=== PATIENT | female | born 1935 | race Caucasian/White ===

== ENCOUNTER → 2020-03-30 11:31 | Outpatient (CLI) | payer MEDICARE, SELFPAY ==
--- NOTE | 2020-03-30 11:43 | XR_ITS ---
PROCEDURE: XR THORACIC SPINE 3V CLINICAL INDICATION: pain COMPARISON: No exams were available for comparison FINDINGS: No fracture or dislocation. No lytic or blastic change. There is normal mineralization. There is mild multilevel thoracic spondylosis with slight decrease in the disc space and minimal endplate osteophytes. Other findings:Incidental note is made of mild cardiomegaly without failure with increased density over left heart border suggesting consolidation along with a nodular opacity in the left midlung laterally at 12 mm. Surgical clips are present in the right axilla. IMPRESSION: Mild degenerative changes, no acute finding. Possible left lower lobe pneumonia. 12 mm nodule in the left midlung for which CT may provide further evaluation Dictated by: Gregory Gongora MD 03/30/2020 13:08 Gregory Gongora MD in [place] 03/30/2020 13:08
--- NOTE | 2020-03-30 11:43 | XR_ITS ---
PROCEDURE: XR LUMBAR SPINE 2-3V CLINICAL INDICATION: lbp, rightward radicular pain COMPARISON: DX XR THORACIC SPINE 3V from 03/30/2020 FINDINGS: There is normal alignment. There is minimal lumbar curvature convex right. Degenerative disc disease is present from L1-S1 with 7 mm anterolisthesis of L5 on S1. Endplate compression changes are present involving the L3 vertebral body. There is ill definition along the anterior aspect of the L3 vertebral body. There is diffuse vascular calcification. There is 4 mm retrolisthesis of L3 on L4. IMPRESSION: 1. Degenerative changes. 2. Endplate compression changes of L3 age indeterminate. There is ill definition along the anterior aspect of the body of L3. Consider MRI or CT for more thorough evaluation Dictated by: Gregory Gongora MD 03/30/2020 13:12 Gregory Gongora MD in [place] 03/30/2020 13:12
== END ==
PROVIDERS: PCP Family Medicine; Visit Provider Family Medicine
DX: G89.29 Other chronic pain (principal); M54.6 Pain in thoracic spine; M54.5 Low back pain
CPT/HCPCS: 72072; 72100

== ENCOUNTER → 2021-01-05 14:54 | Outpatient (CLI) | payer MEDICARE, SELFPAY ==
--- NOTE | 2021-01-05 14:54 | MR_ITS ---
PROCEDURE: MR LUMBAR SPINE WO CON CLINICAL INDICATION: back pain Lbp [id number]. No recent injury. Prior x-ray 03/30/20. COMPARISON: DX XR LUMBAR SPINE 2-3V from 03/30/2020 TECHNIQUE: Standard multiplanar multiecho sequences are performed without contrast. 3-D MIP and myelographic images are also rendered and reviewed FINDINGS: There is normal alignment. The spinal cord ends at the L1-L2 level. T11-T12: Degenerative disc disease. T12-L1: Unremarkable. L1-L2: Unremarkable. L2-L3: Minimal bulging disc. Chronic wedge compression changes involves the L3 vertebral body. There is loss of height centrally of approximately 60 percent with a vertical area of discontinuity of the L3 vertebral body centrally. This does not extend to the right or left but is confined to the central aspect of the vertebral body. There is mild bulging of the anterior aspect of L3 body anteriorly by approximately 3 mm and minimal retrolisthesis of the posterior aspect of the L3 vertebral body also by 3 mm. There is mild facet hypertrophic change with mild bilateral lateral recess and foraminal narrowing. L3-L4: Mild retrolisthesis of L3 by 3 mm with bulging disc along with facet and ligamentum hypertrophic change resulting in the moderate bilateral lateral recess narrowing which abuts both L4 nerve roots.. There is also moderate bilateral foraminal narrowing with borderline central canal stenosis. L4-5: Mild concentric bulging disc. There is severe facet and ligamentum hypertrophy resulting in canal stenosis of 8 mm with moderate to severe bilateral lateral recess narrowing which abuts both L5 nerve roots. There is moderate right and moderate to severe left foraminal narrowing.. L5-S1: 4 mm anterolisthesis of L5 with bulging disc slightly eccentric to the right along with moderate to severe facet and ligamentum hypertrophic change. There is moderate to severe right-sided lateral recess narrowing and bilateral foraminal narrowing. The right lateral recess narrowing abuts the right S1 nerve root. There are numerous bilateral renal cysts the largest involving the left kidney measuring nearly 8 cm. There is a small Tarlov cyst at the S3 level. IMPRESSION: 1. L2-L3: Minimal bulging disc. Chronic wedge compression changes involves the L3 vertebral body. There is loss of height centrally of approximately 60 percent with a vertical area of discontinuity of the L3 vertebral body centrally. This does not extend to the right or left but is confined to the central aspect of the vertebral body. There is mild bulging of the anterior aspect of L3 body anteriorly by approximately 3 mm and minimal retrolisthesis of the posterior aspect of the L3 vertebral body also by 3 mm. There is mild facet hypertrophic change with mild bilateral lateral recess and foraminal narrowing. 2. L3-L4: Mild retrolisthesis of L3 by 3 mm with bulging disc along with facet and ligamentum hypertrophic change resulting in the moderate bilateral lateral recess narrowing which abuts both L4 nerve roots.. There is also moderate bilateral foraminal narrowing with borderline central canal stenosis. 3. L4-5: Mild concentric bulging disc. There is severe facet and ligamentum hypertrophy resulting in canal stenosis of 8 mm with moderate to severe bilateral lateral recess narrowing which abuts both L5 nerve roots. There is moderate right and moderate to severe left foraminal narrowing.. 4. L5-S1: 4 mm anterolisthesis of L5 with bulging disc slightly eccentric to the right along with moderate to severe facet and ligamentum hypertrophic change. There is moderate to severe right-sided lateral recess narrowing and bilateral foraminal narrowing. The right lateral recess narrowing abuts the right S1 nerve root.
== END ==
PROVIDERS: PCP Family Medicine; Visit Provider Family Medicine
DX: M54.5 Low back pain (principal)
CPT/HCPCS: 72148; 76376

== ENCOUNTER → 2021-01-21 08:18 | Outpatient (CLI) | payer MEDICARE, SELFPAY ==
--- NOTE | 2021-01-21 08:19 | US_ITS ---
PROCEDURE: US ABD. AORTA SCREENING CLINICAL INDICATION: screening COMPARISON: No exams were available for comparison FINDINGS: There are some diffuse calcified plaque in the abdominal aorta. No evidence of abdominal aortic aneurysm. Maximal aortic dimensions are 1.7 centimeters proximal, 1.7 centimeters mid, and 1.6 centimeters distal. At the aortic bifurcation proximal common iliac arteries appear normal. IMPRESSION: No evidence of abdominal aortic aneurysm. Dictated by: Sudhakar Francis MD 01/21/2021 09:39 Sudhakar Francis MD in [place] 01/21/2021 09:39
== END ==
PROVIDERS: PCP Family Medicine; Visit Provider Family Medicine
DX: Z13.6 Encounter for screening for cardiovascular disorders (principal)
CPT/HCPCS: 76705

== ENCOUNTER → 2021-02-01 10:22 | Outpatient (POV) | payer MEDICARE, SELFPAY ==
[2021-02-01 11:12] VITALS: BP 144/72; PULSE 69; RESP 18; O2SAT 94; BMI 24.9
--- NOTE | 2021-02-01 12:10 | HMH.PMCON ---
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 The patient is not on any antirelation therapy. She will continue with home stretching. We will see her back in the clinic after her injection for reevaluation of symptoms. She has had these injections in the past and gets significant relief. She will also continue with anti-inflammatories [id number]. Risks and benefits of the procedure have been explained to the patient. Patient would like to proceed with the procedure. Possible side effects of corticosteroids have been discussed with the patient. Patient has been instructed to contact the clinic with any concerns before the next appointment. Dr. Hallman has reviewed this note and agrees with this plan of care. This note was dictated using voice recognition software and make contain errors or omissions. HPI - Data of Consult Patient: new to practice Consult date: 02/01/21 Requesting Physician: Leola Moon APRN Primary Care Provider: Alli Negrete MD - Consult Narrative Reason for consult: Low back pain, buttock pain History of present illness: Ms. Sidhu is a 85 year old female who presents today for consultation for chronic low back pain. The patient was referred to us by Dr. Negrete. Patient says she has had ongoing low back pain for many years. She has undergone injective therapy in the past in [facility] with Dr. Barker. Patient says she gets between 80 to 90% relief with lumbar epidural steroid injections for years after the injections. Patient says that her pain is in the low back bilaterally radiating into her bilateral buttock. She denies any radicular pain into her lower extremities, however. She denies any paresthesia or saddle anesthesia. She denies any changes in bowel or bladder habit. She does say her pain is worse when she is standing and walking and does improve somewhat with sitting. She has tried anti-inflammatories periodically with little relief. She does not take the medications consistently. She has tried physical therapy for greater than 6 weeks in the past. She also continues with a limited home stretching program. CC: Leola Moon APRN [facility] History I have reviewed the patient's past medical history: Yes Medical History: Reports:: Atrial Fibrillation, Cancer, Gall Bladder Disease, Hyperlipidemia, Hypertension, Urinary Tract Infection *Have you ever received a pneumonia vaccine?: Yes *Have you received a flu vaccine this season?: Yes Other Medical History: Reports: Cataracts, Sinus Problems Laterality Cases: Right: Mastectomy Other Surgeries: Yes: Cancer Surgery, Cholecystectomy - *Social History Smoking Status: Never smoker Alcohol Intake: never Substance Use Type: denies use *Occupational Status:: retired Housing: house *Travel in the last 8 weeks: None Family Hx:: Heart Attack, Coronary Artery Disease, Hypertension Review of Systems - Review of Systems Review of Systems General: No recent weight changes, no fever, no sleep disturbances Respiratory: No cough, no shortness of air, no recurring pulmonary infections Cardiovascular/peripheral vascular: No chest pain, no palpitations, no edema, no shortness of breath Gastrointestinal: No new onset incontinence, normal bowel movements reported Genitourinary: No new onset incontinence Musculoskeletal: Low back pain with radiation into left lateral buttock Psychiatric: Normal mood/affect Neurological: [Denies weakness in extremities], [denies balance issues] Meds Home Medications Medication Instructions Recorded Confirmed
== END ==
PROVIDERS: PCP Family Medicine; Visit Provider Clinical Nurse Specialist Family Health
DX: M54.16 Radiculopathy, lumbar region; M47.896 Other spondylosis, lumbar region
CPT/HCPCS: 99202; G0463

== ENCOUNTER → 2021-02-12 08:18 | Day surgery (SDC) | payer MEDICARE, SELFPAY ==
[2021-02-12 08:47] VITALS: BP 152/68; PULSE 59; RESP 18; TEMP 36.6; O2SAT 97; BMI 24.9
[2021-02-12 09:06] VITALS: BP 166/69; PULSE 63; RESP 18; O2SAT 98
[2021-02-12 09:10] VITALS: BP 147/77; PULSE 63; RESP 18; O2SAT 99
--- NOTE | 2021-02-12 09:37 | P.PCN_ITS ---
- Procedure Date: 02/12/21 Time: 09:37 Anesthesiologist:: Madhavi Campos MD Complications:: None Pre-procedure Diagnosis:: Degenerative disc disease of the lumbar spine, lumbar radiculopathy Post-procedure Diagnosis:: Same Indications for Procedure:: This patient is a very pleasant 85-year-old white female who presents today with chronic back pain with some radiation down her right lower extremity related to the above diagnosis. She has trialed and failed conservative treatment including oral pain medications and home stretching program for greater than 6 weeks. She has previously undergone multiple lumbar epidural steroid injections in the past with appropriate pain relief. She notes about 70 to 80% pain relief for a few months. She states that she has not had an epidural steroid injection recently, with the last one being a few years ago. She reports the pain has returned and has gradually worsened over time and with is requesting for repeat injection today. The plan for today is for her to undergo a repeat lumbar epidural steroid injection at L4-L5. Procedure Details:: Informed consent was obtained and the risk and benefits of the procedure was explained to the patient. The patient was taken to the procedure room. The patient was placed prone on the procedure table. The patient was prepped and draped in sterile fashion. C-arm fluoroscopy was used to view the lumbar spine. Skin and subcutaneous tissues were anesthetized using lidocaine. I placed an 18-gauge epidural needle and advanced into the L4-L5 interspace using fluo roscopic guidance and [id number] to air and saline. After confirmation of needle placement in the epidural space with dye I injected 2 mL of lidocaine 1.0% with Depo-Medrol 80 mg. Patient tolerated the procedure well with no complications. Plan and Disposition:: We will follow-up with this patient in 2 weeks. Will reevaluate pain symptoms at that time.
[2021-02-12 09:45] VITALS: BP 152/65; PULSE 61; RESP 18; O2SAT 97
== END ==
PROVIDERS: PCP Family Medicine; Visit Provider Anesthesiology Pain Medicine
DX: M51.16 Intervertebral disc disorders with radiculopathy, lumbar region (principal); E78.5 Hyperlipidemia, unspecified; I48.91 Unspecified atrial fibrillation; I10 Essential (primary) hypertension; K21.9 Gastro-esophageal reflux disease without esophagitis; Z85.3 Personal history of malignant neoplasm of breast; Z87.81 Personal history of (healed) traumatic fracture
CPT/HCPCS: 62323; J1040; Q9966

== ENCOUNTER → 2021-03-08 10:04 | Outpatient (POV) | payer MEDICARE, SELFPAY ==
[2021-03-08 10:12] VITALS: BP 160/71; PULSE 68; RESP 18; O2SAT 96; BMI 24.9
--- NOTE | 2021-03-08 10:43 | HMH.PAINSOAP ---
[facility] Pain Management SOAP Note Subjective:: Patient is a pleasant 85-year-old white female who presents today for follow-up. She had lumbar epidural steroid injection on February 12, 2021. She is currently being treated for degenerative disc disease of the lumbar spine with lumbar radiculopathy. She is in today with increasing pain in the low back. She is rating her pain at rest a 0 out of 10 and with activity and 8 out of 10. She does feel as though she received approximately 24 hours relief from her discomfort with the injection. She has had epidural injections in the past that provided 70 to 80% relief in her symptoms for a few months. This was several years ago. The patient has tried conservative therapy such as physical therapy, at home stretches and exercises without any lasting relief in symptoms. She is interested in repeat lumbar epidural steroid injection today. Review of Systems General: No recent weight changes, no fever, no sleep disturbances Respiratory: No cough, no shortness of air, no recurring pulmonary infections Cardiovascular/peripheral vascular: No chest pain, no palpitations, no edema, no shortness of breath Gastrointestinal: No new onset incontinence, normal bowel movements reported Genitourinary: No new onset incontinence Musculoskeletal: [Low back pain] Psychiatric: [Normal mood/affect] Neurological: [Denies weakness in extremities], [denies balance issues] Objective:: Physical exam General: Alert and oriented x3 no acute distress, pleasant and cooperative, [on room air] Lungs: Respirations even and unlabored, symmetrical chest expansion Eyes: PERRL Musculoskeletal: Flexion and extension of the lumbar spine nonguarded, deep tendon reflexes normal, strength in upper and lower extremities 5 out of 5 normal gait noted Neurological: Speech clear, carroter equal, no gross sensory deficit Assessment:: Degenerative disc disease of the lumbar spine, lumbar radiculopathy Plan:: The patient did receive short-lived relief in her symptoms at approximately 70 to 80%. She is interested in repeating her lumbar epidural steroid injection. We will schedule the patient for a lumbar epidural steroid injection at L4-L5 to help with discomfort. She is welcome to contact the clinic prior to her injection date if she has any questions or concerns. Dr. Hallman has reviewed this note and agrees with this plan of care. This note was dictated using voice recognition software and make contain errors or omissions. [facility] History Medical History: Reports:: Atrial Fibrillation, Cancer, Gall Bladder Disease, Hyperlipidemia, Hypertension, Urinary Tract Infection Denies:: Diabetes Mellitus Type 1, Diabetes Mellitus Type 2, MRSA, Seizures *Have you ever received a pneumonia vaccine?: Yes *Have you received a flu vaccine this season?: Yes Other Medical History: Reports: Cataracts, Sinus Problems. Denies: Blood Transfusion Reaction Laterality Cases: Right: Mastectomy Other Surgeries: Yes: Cancer Surgery, Cholecystectomy Amputation: No Fractures: No - *Social History Smoking Status: Never smoker Alcohol Intake: never Substance Use Type: denies use *Occupational Status:: unemployed Housing: house *Travel in the last 8 weeks: None Family Hx:: Heart Attack, Coronary Artery Disease, Hypertension
== END ==
PROVIDERS: PCP Family Medicine; Visit Provider Family Medicine
DX: M51.16 Intervertebral disc disorders with radiculopathy, lumbar region (principal)
CPT/HCPCS: 99212; G0463

== ENCOUNTER → 2021-03-16 17:36 | Outpatient (CLI) | payer MEDICARE, SELFPAY ==
[2021-03-16 18:49] LABS: Alanine Aminotransferase 19 U/L (12-78); Albumin Level 3.9 g/dl (3.5-5.0); Albumin/Globulin Ratio 1.1 (1.1-1.8); Alkaline Phosphatase 68 U/L (38-126); Anion Gap 14.3 mEq/L (5-15); Aspartate Amino Transferase 24 U/L (14-36); Bilirubin,Total 0.5 mg/dl (0.2-1.3); Blood Urea Nitrogen 23 mg/dl (7-17); Calcium 9.5 mg/dl (8.4-10.2); Carbon Dioxide 25 mmol/L (22.0-30.0); Chloride 108 mmol/L (98-107); Estimated Glomerular Filt Rate 47 ml/min (>60); GFR (African American) 57 ML/MIN (>60); Globulin 3.6 g/dL (1.3-3.2); Glucose 103 mg/dl (74-100); Potassium 4.3 mmoL/L (3.5-5.1); Sodium 143 mmol/L (136-145); Total Protein,Serum 7.5 g/dl (6.3-8.2)
== END ==
PROVIDERS: Visit Provider Family Medicine
DX: M35.3 Polymyalgia rheumatica (principal)
CPT/HCPCS: 80053

== ENCOUNTER 2021-04-23 10:44 | Day surgery (SDC) | payer MEDICARE, SELFPAY ==
[2021-04-23 10:58] VITALS: BP 156/72; PULSE 75; RESP 18; TEMP 36.2; O2SAT 95; BMI 25.7
[2021-04-23 11:17] VITALS: BP 161/82; PULSE 74; RESP 18; O2SAT 95
[2021-04-23 11:19] VITALS: BP 142/71; PULSE 90; RESP 18; O2SAT 96
--- NOTE | 2021-04-23 11:56 | HMH.PMPROC ---
- Procedure Date: 04/23/21 Time: 11:56 Anesthesiologist:: Colton Hallman MD Complications:: None Pre-procedure Diagnosis:: Degenerative disc disease of lumbar spine with lumbar radiculopathy symptoms Post-procedure Diagnosis:: Same Indications for Procedure:: Patient is a pleasant 85-year-old white female who we are treating for low back pain with lumbar radiculopathy symptoms. She did not get much long-term relief with her last epidural steroid injection. She was 80% better for just a few days. We will do repeat lumbar pleural steroid injection today to see if this helps with her pain symptoms. Procedure Details:: Informed consent was obtained and the risk and benefits of the procedure was explained to the patient. The patient was taken to the procedure room. The patient was placed prone on the procedure table. The patient was prepped and draped in sterile fashion. C-arm fluoroscopy was used to view the lumbar spine. Skin and subcutaneous tissues were anesthetized using lidocaine. I placed an 18-gauge epidural needle and advanced into the L4-L5 interspace using fluoroscopic guidance and [id number] to air. After confirmation of needle placement in the epidural space with dye I injected 2 mL of lidocaine 1.5% with Depo-Medrol 80 mg. Patient tolerated the procedure well with no complications. Plan and Disposition:: We will follow-up with her in 2 weeks. Will reevaluate symptoms at that time. I did give her information on spinal cord stimulation as I do believe this may be a long-term solution to help with her pain symptoms in her back and legs. We will have the [employer] personal service representative contact her and see if we can get a spinal cord stimulator trial approved.
[2021-04-23 12:04] VITALS: BP 140/75; PULSE 80; RESP 18; TEMP 36.2; O2SAT 97
== END 2021-04-23 11:25 | disposition home or self-care (01) ==
LOC: SC.PAINP 10:46
PROVIDERS: PCP Family Medicine; Visit Provider Anesthesiology
DX: M51.16 Intervertebral disc disorders with radiculopathy, lumbar region (principal); I10 Essential (primary) hypertension; K21.9 Gastro-esophageal reflux disease without esophagitis; Z90.49 Acquired absence of other specified parts of digestive tract; Z90.10 Acquired absence of unspecified breast and nipple; Z85.9 Personal history of malignant neoplasm, unspecified; Z88.0 Allergy status to penicillin; Z88.2 Allergy status to sulfonamides; Z79.899 Other long term (current) drug therapy; Z79.82 Long term (current) use of aspirin
CPT/HCPCS: 62323; J1040; Q9966

== ENCOUNTER → 2021-05-18 09:33 | Outpatient (POV) | payer MEDICARE, SELFPAY ==
[2021-05-18 09:50] VITALS: BP 164/80; PULSE 80; RESP 18; O2SAT 96; BMI 25.7
--- NOTE | 2021-05-18 10:09 | HMH.PAINSOAP ---
[facility] Pain Management SOAP Note Subjective:: Patient is an 86-year-old white female who is following up after lumbar epidural steroid injection for low back pain and bilateral lower extremity pain. Patient says that she got significant relief following the injection. She rates her pain a 2 out of 10 today. She does report that this was her #2 lumbar epidural steroid injection. She says she no longer has coldness, stiffness, pain into the legs. She says it does help somewhat with the low back pain, however, she does continue to have significant back pain. She got 4 to 6 days of relief at about 60 to 70%. She continues with home stretching. She was much more functional after the injection. Patient would like to repeat the third lumbar epidural steroid injection. She did discuss possible spinal cord stimulation at last visit with Dr. Hallman. Review of Systems General: No recent weight changes, no fever, no sleep disturbances Respiratory: No cough, no shortness of air, no recurring pulmonary infections Cardiovascular/peripheral vascular: No chest pain, no palpitations, no edema, no shortness of breath Gastrointestinal: No new onset incontinence, normal bowel movements reported Genitourinary: No new onset incontinence Musculoskeletal: Low back pain Psychiatric: [Normal mood/affect] Neurological: [Denies weakness in extremities], [denies balance issues] Objective:: Physical exam General: Alert and oriented x3, no acute distress, pleasant and cooperative Lungs: Respirations even and unlabored, symmetrical chest expansion Eyes: PERRL Musculoskeletal: Flexion and extension of lumbar [spine] somewhat guarded secondary to pain, [antalgic gait noted] Neurological: Speech clear, no gross sensory deficit Assessment:: Degenerative disc disease lumbar spine with lumbar radiculopathy symptoms Plan:: Patient and I did review spinal cord stimulation therapy today. She is accompanied by her daughter. We discussed the device in great length today. The patient is interested, but would like to schedule the third lumbar epidural steroid injection. If she does not get any significant or long-term relief with the injection she will likely proceed with a psychological evaluation for spinal cord stimulation. I will contact the [employer] stimulator special service representative to reach out to the patient and her family to discuss the device in detail. We will schedule the patient for lumbar epidural steroid injection at L4-L5. This will be the patient's #3 lumbar epidural steroid injection. She is not on anticoagulation therapy. We will follow up with her afterwards for reevaluation symptoms and discuss a further plan of care. Patient is not diabetic. Possible side effects of corticosteroids have been discussed with the patient. Risks and benefits of the procedure have been explained to the patient. Patient would like to proceed with the procedure. Patient has been instructed to contact the clinic with any concerns before the next appointment. Dr. Hallman has reviewed this note and agrees with this plan of care. This note was dictated using voice recognition software and make contain errors or omissions. [facility] History I have reviewed the patient's past medical history: Yes Medical History: Reports:: Atrial Fibrillation, Cancer, Gall Bladder Disease, Hyperlipidemia, Hypertension, Urinary Tract Infection Denies:: Diabetes Mellitus Type 1, Diabetes Mellitus Type 2, MRSA, Seizures *Have you ever received a pneumonia vaccine?: Yes *Have you received a flu vaccine this season?: No Other Medical History: Reports: Cataracts, Sinus Problems. Denies: Blood Transfusion Reaction Laterality Cases: Right: Mastectomy Other Surgeries: Yes: Cancer Surgery, Cholecystectomy Amputation: No Fractures: No - *Social History Smoking Status: Never smoker Alcohol Intake: never Substance Use Type: denies use *Occupational Status:: unemployed Housing: house [employer]
== END ==
PROVIDERS: Visit Provider Clinical Nurse Specialist Family Health
DX: M51.16 Intervertebral disc disorders with radiculopathy, lumbar region (principal)
CPT/HCPCS: 99212; G0463

== ENCOUNTER 2021-06-04 13:39 | Day surgery (SDC) | payer MEDICARE, SELFPAY ==
[2021-06-04 13:44] VITALS: BP 147/73; PULSE 79; RESP 18; TEMP 34.8; O2SAT 96; BMI 25.7
[2021-06-04 14:15] VITALS: BP 174/81; PULSE 70; RESP 18; O2SAT 96
[2021-06-04 14:22] VITALS: BP 134/71; PULSE 75; RESP 18; O2SAT 97
--- NOTE | 2021-06-04 14:27 | HMH.PMPROC ---
- Procedure Date: 06/04/21 Time: 14:27 Anesthesiologist:: Colton Hallman MD Complications:: None Pre-procedure Diagnosis:: Degenerative disc disease of lumbar spine with lumbar radiculopathy symptoms Post-procedure Diagnosis:: Same Indications for Procedure:: This patient is a pleasant 86-year-old white female who we are treating for low back pain with lumbar radiculopathy symptoms. She did well with previous lumbar epidural steroid injections. She has gotten good pain relief. We will plan on repeat lumbar epidural steroid injection under fluoroscopy to help further with her pain symptoms. Procedure Details:: Informed consent was obtained and the risk and benefits of the procedure was explained to the patient. The patient was taken to the procedure room. The patient was placed prone on the procedure table. The patient was prepped and draped in sterile fashion. C-arm fluoroscopy was used to view the lumbar spine. Skin and subcutaneous tissues were anesthetized using lidocaine. I placed an 18-gauge epidural needle and advanced into the L4-L5 interspace using fluoroscopic guidance and [id number] to air. After confirmation of needle placement in the epidural space with dye I injected 2 mL of lidocaine 1.5% with Depo-Medrol 80 mg. Patient tolerated the procedure well with no complications. Plan and Disposition:: We will follow-up with her in 2 weeks. Will reevaluate symptoms at that time. If she does not get adequate relief of her symptoms then we will investigate spinal cord stimulation.
[2021-06-04 14:40] VITALS: BP 152/74; PULSE 69; RESP 20; O2SAT 97
== END 2021-06-04 14:40 | disposition home or self-care (01) ==
LOC: SC.PAINP 13:40
PROVIDERS: PCP Family Medicine; Visit Provider Anesthesiology
DX: M51.16 Intervertebral disc disorders with radiculopathy, lumbar region (principal); E78.5 Hyperlipidemia, unspecified; I48.91 Unspecified atrial fibrillation; I10 Essential (primary) hypertension; Z88.0 Allergy status to penicillin; Z88.2 Allergy status to sulfonamides
CPT/HCPCS: 62323; J1040; Q9966

== ENCOUNTER → 2021-06-21 10:56 | Outpatient (POV) | payer MEDICARE, SELFPAY ==
[2021-06-21 11:09] VITALS: BP 157/73; PULSE 70; RESP 18; O2SAT 96; BMI 25.7
--- NOTE | 2021-06-22 12:36 | P.CONS_ITS ---
[facility] Pain Management SOAP Note Subjective:: Patient is an 86-year-old white female who presents today for follow-up after lumbar epidural steroid injection. Patient is being treated for chronic low back pain with lumbar radicular symptoms. She says she is doing well since her injection and is not having any pain at this time. She does say that she typically gets between 2 to 3 months of relief with her injections. She rates her pain a 2 out of 10 today. Review of Systems General: No recent weight changes, no fever, no sleep disturbances Respiratory: No cough, no shortness of air, no recurring pulmonary infections Cardiovascular/peripheral vascular: No chest pain, no palpitations, no edema, no shortness of breath Gastrointestinal: No new onset incontinence, normal bowel movements reported Genitourinary: No new onset incontinence Musculoskeletal: Low back pain with radiation into bilateral lower extremities Psychiatric: [Normal mood/affect] Neurological: [Denies weakness in extremities], [denies balance issues] Objective:: Physical exam General: Alert and oriented x3, no acute distress, pleasant and cooperative Lungs: Respirations even and unlabored, symmetrical chest expansion Eyes: PERRL Musculoskeletal: Flexion and extension of lumbar [spine] somewhat guarded secondary to pain, [antalgic gait noted] Neurological: Speech clear, no gross sensory deficit Assessment:: Degenerative disc disease lumbar spine with lumbar radiculopathy symptoms Plan:: Patient is doing well overall since her injection. She does not need any further injective therapy at this time. We will schedule her for 3-month follow-up for reevaluation at that time. She has been instructed she can call the clinic if her symptoms return before the 3-month follow-up. Patient has been instructed to contact the clinic with any concerns before the next appointment. Dr. Hallman has reviewed this note and agrees with this plan of care. This note was dictated using voice recognition software and make contain errors or omissions. [facility] History I have reviewed the patient's past medical history: Yes Medical History: Reports:: Atrial Fibrillation, Cancer, Gall Bladder Disease, Hyperlipidemia, Hypertension, Urinary Tract Infection Denies:: Diabetes Mellitus Type 1, Diabetes Mellitus Type 2, MRSA, Seizures *Have you ever received a pneumonia vaccine?: Yes *Have you received a flu vaccine this season?: No Other Medical History: Reports: Cataracts, Sinus Problems. Denies: Blood Transfusion Reaction Laterality Cases: Right: Mastectomy Other Surgeries: Yes: Cancer Surgery, Cholecystectomy Amputation: No Fractures: No - *Social History Smoking Status: Never smoker Alcohol Intake: never Substance Use Type: denies use *Occupational Status:: unemployed Housing: house Household Members: spouse *Travel in the last 8 weeks: None Family Hx:: Heart Attack, Coronary Artery Disease, Hypertension
== END ==
PROVIDERS: Visit Provider Clinical Nurse Specialist Family Health
DX: M51.16 Intervertebral disc disorders with radiculopathy, lumbar region (principal)
CPT/HCPCS: 99212; G0463

== ENCOUNTER → 2021-09-27 10:21 | Outpatient (POV) | payer MEDICARE, SELFPAY ==
[2021-09-27 10:51] VITALS: BP 189/83; PULSE 63; RESP 18; O2SAT 95; BMI 24.9
--- NOTE | 2021-09-27 13:39 | P.CONS_ITS ---
[facility] Pain Management SOAP Note Subjective:: This patient is a very pleasant 86-year-old white female who presents today for follow-up. She is currently being treated for degenerative disc disease lumbar spine lumbar radiculopathy. She has previously undergone multiple lumbar epidural steroid injections with the most recent injection over 3 months ago. She states that she continues to experience ongoing pain relief at this time and would like to hold off on a repeat injection. She rates her pain today as a 3 out of 10. Typically she states that she gets about 80% pain relief for about 2 to 3 months. Objective:: General: Alert and oriented x3, no acute distress, pleasant and cooperative Lungs: Resps E/U, symmetric chest expansion Eyes: PERRL Musculoskeletal: limited flexion and extension of the lumbar spine secondary to pain. Deep tendon reflexes were normal in bilateral lower extremities. Motor exam was grossly intact in the bilateral lower extremities, antalgic gait noted. Neurological: Speech is clear, air brake adjuster equal, no gross sensory deficits Assessment:: Degenerative disc disease lumbar spine lumbar radiculopathy Plan:: I discussed with the patient that we will continue to observe her symptoms closely and hold off on any repeat injections at this time. Follow-up with this patient in 3 weeks for reassessment of her chronic pain symptoms. However, I discussed with the patient should she begin noticing the pain returning she should contact her clinic so we can schedule her for a repeat lumbar epidural steroid injection under fluoroscopy. [facility] #[id number] was reviewed and appropriate. ORT was performed today and the patient was deemed low risk [facility] History Medical History: Reports:: Atrial Fibrillation, Cancer, Gall Bladder Disease, Hyperlipidemia, Hypertension, Urinary Tract Infection Denies:: Diabetes Mellitus Type 1, Diabetes Mellitus Type 2, MRSA, Seizures *Have you ever received a pneumonia vaccine?: Yes *Have you received a flu vaccine this season?: Yes Other Medical History: Reports: Cataracts, Sinus Problems. Denies: Blood Transfusion Reaction Laterality Cases: Right: Mastectomy Other Surgeries: Yes: Cancer Surgery, Cholecystectomy Amputation: No Fractures: No - *Social History Smoking Status: Never smoker Alcohol Intake: never Substance Use Type: denies use *Occupational Status:: unemployed Housing: house Household Members: spouse *Travel in the last 8 weeks: None Family Hx:: Heart Attack, Coronary Artery Disease, Hypertension
== END ==
PROVIDERS: Visit Provider Anesthesiology Pain Medicine
DX: M51.16 Intervertebral disc disorders with radiculopathy, lumbar region (principal)
CPT/HCPCS: 99212; G0463

== ENCOUNTER 2022-03-18 16:08 | Emergency (ER) | payer MEDICARE, SELFPAY ==
[2022-03-18] VITALS (7 sets, daily range): BP systolic 159–181; BP diastolic 74–90; PULSE 60–71; RESP 16–20; TEMP 36.7–36.8; O2SAT 95–99; BMI 23.0
--- NOTE | 2022-03-18 16:06 | ECG_ITS ---
APPROVED REPORT Exam: Resting ECG HR:75 bpm ECG Measurements Heart Rate 75 AXES NJ 176 P 54 QRSd 106 QRS -42 QT 365 T 42 QTc 394 Conclusion SINUS RHYTHM LEFT AXIS DEVIATION [QRS AXIS < -30] ABNORMAL ECG UNCONFIRMED REPORT Electronically signed by : Fausto Rubin MD 03/19/2022 08:12:54
--- NOTE | 2022-03-18 16:18 | PC.NURSE ---
ER at for patient eval; family at BS
--- NOTE | 2022-03-18 16:21 | CT_ITS ---
PROCEDURE INFORMATION: Exam: CTA Chest With Contrast Exam date and time: 03/18/2022 4:41 PM Age: 86 years old Clinical indication: Pain; Chest pressure; Additional info: Chest pain radiating to back, HTN TECHNIQUE: Imaging protocol: Computed tomographic angiography of the chest with contrast. 3D rendering (Not supervised by radiologist): MIP and/or 3D reconstructed images were created by the technologist. Radiation optimization: All CT scans at this facility use at least one of these dose optimization techniques: automated exposure control; mA and/or kV adjustment per patient size (includes targeted exams where dose is matched to clinical indication); or iterative reconstruction. Contrast material: ISOVUE 370; Contrast volume: 100 ml; Contrast route: INTRAVENOUS (IV); COMPARISON: US ABD. AORTA SCREENING 01/21/2021 8:52 AM FINDINGS: Pulmonary arteries: Normal. No pulmonary emboli. Aorta: Mild calcification aortic arch. Ascending aorta measures 3.4 cm in maximum dimensions. Mild plaque involving the distal abdominal aorta. Celiac trunk and mesenteric arteries: Minimal plaque adjacent to the superior mesenteric artery. Left iliac arteries: Mild-moderate plaque involving the common iliac arteries greatest on the left. Mild plaque extending into the internal iliac arteries. Lungs: 6 mm calcified granuloma left upper lobe. Patchy bilateral ground-glass regions of opacification most pronounced in the lower lobes. Minimal regions of subsegmental atelectasis both lung bases. Pleural spaces: Unremarkable. No pneumothorax. No pleural effusion. Heart: Coronary artery calcifications. Cardiomegaly. Is No pericardial effusion. Mitral valve calcification. Lymph nodes: Calcified left perihilar lymph nodes. Nonspecific right perihilar lymph nodes and paratracheal lymph nodes. Bones/joints: Unremarkable. No acute fracture. Soft tissues: Unremarkable. Other findings: Mild calcified plaque at the level of the intra-abdominal aorta. Moderate plaque at the level of the left renal artery IMPRESSION: 1. Atherosclerotic vascular disease. No evidence of aneurysmal dilatation. Mild-moderate plaque involving the common iliac arteries greatest on the left. 2. Patchy bilateral ground-glass regions of opacification most pronounced in the lower lobes. Findings nonspecific and may be secondary to interstitial lung disease. Post inflammatory changes could not be excluded. 3. No evidence of acute cardiopulmonary disease.
--- NOTE | 2022-03-18 16:23 | HMH.EDGENADL ---
ED Disposition Clinical Impression: Ground glass opacity present on imaging of lung, Renal cyst, Chest pain, Atherosclerotic plaque Disposition: Home, Self-Care Condition on Discharge: Good Additional Instructions: At this time was felt you are safe to be discharged home. If new or worsening symptoms please do not hesitate to return the emergency department. Please follow-up with your family doctor early next week to discuss your imaging findings at the bases of your lungs as well as the vessels in your legs. Referrals: Alli Negrete MD [Primary Care Provider] - - Critical Care Critical Care Time: No Attestation: On , the high probability of a clinically significant, sudden or life threatening deterioration of the following system(s) required my full and direct attention, intervention and personal management. The time I documented below is in addition to time spent performing reported procedures but includes the following listed in this critical care notation. Medical Decision Making - [place] Inquiry Pt receiving controlled substance: No Vital Signs: 03/18/22 16:10 03/18/22 16:30 03/18/22 17:02 Temperature 98.3 F Temperature Source Oral Pulse Rate 70 71 Pulse Rate [Left Radial] 67 Respiratory Rate 16 Blood Pressure 159/74 H 181/89 H Blood Pressure [Right Arm] 159/74 H Blood Pressure Mean 102 101 Blood Pressure Mean [Right Arm] 102 02 Sat by Pulse Oximetry 96 96 95 Oxygen Delivery Method Room Air Room Air Room Air 03/18/22 17:30 03/18/22 19:11 Temperature Temperature Source Pulse Rate 68 60 Pulse Rate [Left Radial] Respiratory Rate 20 Blood Pressure 171/81 H 164/90 H Blood Pressure [Right Arm] Blood Pressure Mean 110 102 Blood Pressure Mean [Right Arm] 02 Sat by Pulse Oximetry 96 95 Oxygen Delivery Method - Lab Data Lab Results 03/18/22 16:11: WBC 8.3, RBC 4.86, Hgb 14.8, Hct 47.8 H, MCV 98.5, MCH 30.4, MCHC 30.9 L, RDW 13.8, Plt Count 388, MPV 8.6, Neut % (Auto) 62.1, Lymph % (Auto) 26.1, Gaston % (Auto) 8.0, Eos % (Auto) 2.5, Baso % (Auto) 1.3, Neut # (Auto) 5.2, Lymph # (Auto) 2.2, Gaston # (Auto) 0.7, Eos # (Auto) 0.2, Baso # (Auto) 0.1 03/18/22 16:11: Sodium 140, Potassium 4.1, Chloride 106, Carbon Dioxide 27, Anion Gap 11.1, BUN 12, Creatinine 0.90, Estimated GFR 60, Est GFR ( Amer) 72, Glucose 112 H, Calcium 9.4, Troponin I < 0.01 03/18/22 19:10: Troponin I < 0.01 Result diagrams: 03/18/22 16:11 03/18/22 16:11 Orders (Tests/Meds): ED MEDICATIONS Discontinued Medications Generic Name Dose Route Start Last Admin Trade Name Freq PRN Reason Stop Dose Admin Acetaminophen 500 mg 03/18/22 16:23 03/18/22 16:34 Acetaminophen 500mg Tab PO 03/18/22 16:24 500 mg ONCE ONE Administration Iopamidol 100 ml 03/18/22 16:46 03/18/22 16:47 Iopamidol-370 (76%);100ml Bottle IV 03/18/22 16:47 100 ml ONCE ONE Administration Sodium Chloride 40 ml 03/18/22 16:46 03/18/22 16:47 0.9 % Sodium Chloride 50 Ml Vial IV 03/18/22 16:47 40 ml ONCE ONE Administration Sodium Chloride 10 ml 03/18/22 16:47 03/18/22 16:47 Sodium Chloride 0.9% 10ml Syr (Rad Only) IV 03/18/22 16:48 10 ml ONCE ONE Administration ORDERS Category Date Time Status Troponin I Q3H Lab 03/18/22 22:30 Ordered - ECG Data Tracing #1 Independently interpreted by me, rate is 75, rhythm is regular, left axis deviation, QTC 394, no significant ST elevation in anatomical contiguous leads. No pathologic T wave inversions. Medical Decision Narrative: In summary this is a 86-year-old female with past medical history described above presents emergency department for evaluation of subacute chest pain. Patient is hemodynamically stable nontoxic-appearing upon arrival. Differential diagnosis includes dissection, pulmonary embolism, ACS, costochondritis, among others. Initial work-up will be conducted with hematologic labs, EKG, serial troponins, CTA ches
[2022-03-18 16:28] LABS: Basophils # 0.1 K/mm3 (0-0.2); Basophils % 1.3 % (0.1-2.0); Eosinophils # 0.2 K/mm3 (0.0-0.4); Eosinophils % 2.5 % (0.1-12.0); Hematocrit 47.8 % (37.0-47.0); Hemoglobin 14.8 g/dL (12.2-16.2); Lymphocytes # 2.2 K/mm3 (0.7-4.5); Lymphocytes % 26.1 % (10-50); Mean Corpuscular HGB Conc 30.9 g/dL (31.8-35.4); Mean Corpuscular Hemoglobin 30.4 pg (27.0-31.2); Mean Corpuscular Volume 98.5 fl (81-99); Mean Platelet Volume 8.6 fl (7.4-10.4); Monocytes # 0.7 K/mm3 (0.1-1.0); Neutrophils # 5.2 K/mm3 (1.8-7.8); Neutrophils % 62.1 % (37.0-80.0); Platelet Count 388 K/mm3 (142-424); Red Blood Count 4.86 M/mm3 (4.20-5.40); Red Cell Distribution Width 13.8 % (11.5-17.5); White Blood Count 8.3 K/mm3 (4.8-10.8)
[2022-03-18 16:32] LABS: Anion Gap 11.1 mEq/L (5-15); Blood Urea Nitrogen 12 mg/dl (7-17); Calcium 9.4 mg/dl (8.4-10.2); Carbon Dioxide 27 mmol/L (22.0-30.0); Chloride 106 mmol/L (98-107); Estimated Glomerular Filt Rate 60 ml/min (>60); GFR (African American) 72 ML/MIN (>60); Glucose 112 mg/dl (74-100); Potassium 4.1 mmoL/L (3.5-5.1); Sodium 140 mmol/L (136-145)
--- NOTE | 2022-03-18 16:52 | CT_ITS ---
PROCEDURE INFORMATION: Exam: CT Abdomen And Pelvis With Contrast Exam date and time: 03/18/2022 4:41 PM Age: 86 years old Clinical indication: Abdominal pain; Flank; Other: Posterior back pain; Additional info: Large renal cyst seen on CT chest TECHNIQUE: Imaging protocol: Computed tomography of the abdomen and pelvis with contrast. 3D rendering (Not supervised by radiologist): MIP and/or 3D reconstructed images were created by the technologist. Radiation optimization: All CT scans at this facility use at least one of these dose optimization techniques: automated exposure control; mA and/or kV adjustment per patient size (includes targeted exams where dose is matched to clinical indication); or iterative reconstruction. Contrast material: ISOVUE; Contrast volume: 100 ml; Contrast route: IV; COMPARISON: MRI lumbar spine 01/05/2021 FINDINGS: Lungs: Regions of subsegmental atelectasis left lung base. Bibasilar regions of ground-glass opacification. Liver: Hepatic steatosis. Gallbladder and bile ducts: Status post cholecystectomy. Pancreas: Normal. No ductal dilation. Spleen: Normal. No splenomegaly. Adrenal glands: Normal. No mass. Kidneys and ureters: Multiple bilateral renal cysts. The largest arises from the posteroinferior aspect of the left kidney and measures 11 by 8.7 cm in maximum dimensions. This was demonstrated on the previous MRI lumbar spine however peers to have slightly increased in size. Stomach and bowel: Unremarkable. No obstruction. No mucosal thickening. Appendix: No evidence of appendicitis. Intraperitoneal space: Unremarkable. No free air. No significant fluid collection. Vasculature: Scattered regions of atherosclerotic vascular calcification within the abdominal aorta and common iliac arteries. Lymph nodes: Unremarkable. No enlarged lymph nodes. Urinary bladder: Unremarkable as visualized. Reproductive: See Bones/joints finding. Bones/joints: 2.2 cm cyst in the right hemipelvis. This is slightly superior to the uterus however may be adnexal in origin. Osteopenia. Moderate L3 compression fracture deformity. Approximate 50% decrease in vertebral body height. Findings stable compared with previous MRI lumbar spine 01/05/2021. Soft tissues: Unremarkable. IMPRESSION: 1. 11 x 8.7 cm cyst lower pole left kidney. Slight increase in size based upon limited comparison with MRI lumbar spine dated 01/05/2021. 2. 2.2 cm cyst right hemipelvis. This may be adnexal in origin. 3. Moderate L3 compression fracture deformity. Approximate 50% decrease in vertebral body height. Findings stable compared with previous MRI lumbar spine 01/05/2021. COMMENTS: Consistent with the [employer]'s Incidental Findings Committee white paper (J Am Shoaib Radiol 2018): Any incidental renal lesion less than 1 cm or classified as too small to characterize, or any incidental cystic renal lesion characterized as simple-appearing, is likely benign. No follow-up imaging is recommended for these lesions per consensus recommendations based on imaging criteria.
[2022-03-18 16:54] LABS: Troponin I < 0.01 ng/ml (0.00-0.034)
--- NOTE | 2022-03-18 19:02 | PC.NURSE ---
ER MD at BS speaking with patient regarding update on POC/results; family at BS
--- NOTE | 2022-03-18 19:09 | PC.NURSE ---
second troponin being drawn at this time
--- NOTE | 2022-03-18 19:53 | PC.NURSE ---
pt updated we are awaiting second cardiac enzyme. lab states they are resulting labs now
[2022-03-18 19:55] LABS: Troponin I < 0.01 ng/ml (0.00-0.034)
== END 2022-03-18 20:13 | disposition home or self-care (01) ==
PROVIDERS: Emergency Provider Emergency Medicine; PCP Family Medicine
DX: R07.2 Precordial pain (principal); R94.31 Abnormal electrocardiogram [ECG] [EKG]; R93.49 Abnormal radiologic findings on diagnostic imaging of other urinary organs; I10 Essential (primary) hypertension; I44.60 Unspecified fascicular block; I70.1 Atherosclerosis of renal artery; I77.1 Stricture of artery; I48.0 Paroxysmal atrial fibrillation; R63.4 Abnormal weight loss; N28.1 Cyst of kidney, acquired; Z85.3 Personal history of malignant neoplasm of breast; Z90.11 Acquired absence of right breast and nipple; I71.1 Thoracic aortic aneurysm, ruptured; K82.9 Disease of gallbladder, unspecified; H26.9 Unspecified cataract; Z79.01 Long term (current) use of anticoagulants; Z79.82 Long term (current) use of aspirin; Z79.899 Other long term (current) drug therapy; Z68.23 Body mass index [BMI] 23.0-23.9, adult; Z88.0 Allergy status to penicillin; Z88.2 Allergy status to sulfonamides; Z82.49 Family history of ischemic heart disease and other diseases of the circulatory system
CPT/HCPCS: 71275; 74177; 80048; 84484; 85025; 93005; 99285; Q9967

== ENCOUNTER → 2022-03-21 11:01 | Outpatient (CLI) | payer MEDICARE, SELFPAY ==
[2022-03-21 11:49] LABS: Basophils # 0.1 K/mm3 (0-0.2); Basophils % 1.4 % (0.1-2.0); Eosinophils # 0.1 K/mm3 (0.0-0.4); Eosinophils % 0.8 % (0.1-12.0); Hemoglobin 15.3 g/dL (12.2-16.2); Lymphocytes # 1.7 K/mm3 (0.7-4.5); Lymphocytes % 18.7 % (10-50); Mean Corpuscular HGB Conc 30.7 g/dL (31.8-35.4); Mean Corpuscular Hemoglobin 30.6 pg (27.0-31.2); Mean Corpuscular Volume 99.7 fl (81-99); Mean Platelet Volume 9.1 fl (7.4-10.4); Monocytes # 0.6 K/mm3 (0.1-1.0); Monocytes % 6.5 % (1.7-9.3); Neutrophils # 6.4 K/mm3 (1.8-7.8); Neutrophils % 72.5 % (37.0-80.0); Platelet Count 404 K/mm3 (142-424); Red Blood Count 5.02 M/mm3 (4.20-5.40); Red Cell Distribution Width 13.9 % (11.5-17.5); White Blood Count 8.8 K/mm3 (4.8-10.8)
[2022-03-21 12:58] LABS: Anion Gap 12.6 mEq/L (5-15); Blood Urea Nitrogen 18 mg/dl (7-17); Carbon Dioxide 26 mmol/L (22.0-30.0); Chloride 105 mmol/L (98-107); Estimated Glomerular Filt Rate 53 ml/min (>60); GFR (African American) 64 ML/MIN (>60); Glucose 104 mg/dl (74-100); Potassium 4.6 mmoL/L (3.5-5.1); Sodium 139 mmol/L (136-145)
== END ==
PROVIDERS: PCP Family Medicine; Visit Provider Nurse Practitioner Family
DX: I10 Essential (primary) hypertension (principal); I44.4 Left anterior fascicular block; I48.0 Paroxysmal atrial fibrillation; I63.9 Cerebral infarction, unspecified; I70.1 Atherosclerosis of renal artery; I77.1 Stricture of artery; R06.09 Other forms of dyspnea; R07.89 Other chest pain; R63.4 Abnormal weight loss; R94.31 Abnormal electrocardiogram [ECG] [EKG]; Z01.812 Encounter for preprocedural laboratory examination; Z20.822 Contact with and (suspected) exposure to COVID-19
CPT/HCPCS: 36415; 80048; 85025; C9803; U0003; U0005

== ENCOUNTER 2022-03-22 08:45 | Day surgery (SDC) | payer MEDICARE, SELFPAY ==
[2022-03-22] VITALS (20 sets, daily range): BP systolic 112–169; BP diastolic 54–91; PULSE 59–78; RESP 16–20; TEMP 36.6–37.3; O2SAT 90–97; BMI 23.8; BMI 24.5
--- NOTE | 2022-03-22 07:05 | IR_ITS ---
APPROVED REPORT Patient Location: Outpatient Patcher Helper: LEONEL Anderson RT (R) PROCEDURES Bilateral selective renal angiogram Selective engagement of the celiac artery with selective celiac artery angiography Bare-metal stent deployment to the right common iliac artery Right common iliac artery antegrade angiogram Right common iliac artery retrograde angiogram Bare-metal stent deployment to the celiac artery INDICATION Extreme weight loss with symptoms suggesting mesenteric ischemia, Celiac artery stenosis, Abnormal CTA demonstrating celiac artery stenosis and renal artery stenosis, Peripheral artery disease Informed consent was obtained prior to the procedure. COMPLICATIONS NONE Estimated Blood Loss: LESS THAN 10 ML TECHNIQUE 1% lidocaine used anesthetize the right anterior aspect of the right wrist. The right radial artery was accessed via the Salinger technique and a 6 Macanese hydrophilic sheath was placed in the right radial artery. An arterial cocktail was administered and a long EBU 3.75 guide catheter was used to perform bilateral selective renal angiography as well as selective celiac artery angiography. Following this therapeutic heparin was administered and a Choice PT extra-support wire was placed into the celiac artery. A 7 mm x 15 mm Herculink stent was deployed in the ostium of the celiac artery however upon catheter removal the stent was pulled out of the celiac artery and into the aorta. At this point 1% lidocaine was used to anesthetize the right groin and the right femoral artery was accessed via the Salinger technique. A 6 Macanese sheath was placed in the right femoral artery. An advantage wire was then used to cannulate the stent and the stent was pushed down into the right common iliac artery. At this point 3 mm balloon was tried to better secure the stent against the common iliac artery however the wire continue to go through the side struts. At this point the 6 6 Macanese hydrophilic sheath in the radial artery was exchanged for a 119 cm 6 Macanese hydrophilic sheath which then was placed in the right common iliac artery. A wire was advanced beyond the stent and a 8 mm x 40 mm self-expanding stent was placed proximal and distal to the 7 mm stent and then trapped in the common iliac artery. A 7 mm balloon was then used to post dilate further smashing the stent against the common iliac artery. An 8 mm x 20 mm balloon was then placed into the area of interest at the level of the 7 mm stent and then deployed at 12 joann to further smash the stent and provide wide patency of the right common iliac artery. After achieving excellent angiograph results the sheath was pulled back and placed in the celiac artery where the wire was advanced into the celiac artery and a 7 mm x 17 mm Herculink stent was placed deeper into the ostium and deployed at 14 joann reducing the severe stenosis to less than 10%. After achieving excellent angiographic results the apparatus was removed from the groin the groin was reprepped closure change sheath was removed and hemostasis was achieved using Perclose device. The arterial radial sheath was then removed with good hemostasis being achieved using TR banding and the patient was transferred to the postop putting in stable condition ANGIOGRAPHIC RESULTS Right renal artery singular widely patent Left renal artery singular widely patent Celiac artery has an ostial 70 to 80% stenosis IMPRESSION Widely patent singular renal arteries bilaterally Severe celiac artery stenosis Successful stenting of the celiac artery severe disease reduced to less than 10% with 1 bare-metal balloon mounted stent Successful stenting of the right common iliac artery reducin
--- NOTE | 2022-03-22 08:49 | CA_ITS ---
APPROVED REPORT EXAM: Comprehensive 2D, Doppler, and color-flow Echocardiogram Inpatient Care Manager Rn: Mercedes Resendez RDCS Ht: 5 ft 4 in Wt: 139lbs BSA: 1.68 BP: 181/90 mmHg Indications: SOA,AF,CP,MURMUR,HTN,HLP 2D Dimensions LVOT 1.96 cm (M/F) 1.5-2.5 M-Mode Dimensions RVDd 1.21 cm (0.9-2.6) LA Diam 3.41 cm (1.9-4.0) LVDd 4.82 cm (3.5-5.7) Ao Diam 3.52 cm (2.0-3.7) LVDs 3.82 cm (3.5-5.7) IVSd 0.86 cm (0.6-1.1) PWd 0.93 cm (0.6-1.1) EF (Teich) 42.30% FS 20.70% EDV (Teich) 108.60 mL ESV (Teich) 62.70 mL LV Diastology E Decel Time 187.00 (160-240 msec) E/A Ratio 0.6 MED E' 6.70 (< 7 cm/sec) E'/MED E' Ratio 6.06 (>14) LAT E' 4.90 (<10 cm/sec) E/LAT E' Ratio 8.29 (>14) Aortic Valve LVOT Max 103.00 (70-110 cm/s) LVOT VTI 18.70 cm AoV Peak Alexi. 148.00 (50-130 cm/s) AI PHT 480.00 ms AO Peak GR. 8.70 mmHg AO Mean GR. 4.40 (<5 mmHg) AO VTI 27.20 (18-25 cm) LESTER (VTI) 2.07 (2.5-4.5 cm2) Mitral Valve MV E Max Alexi. 41.00 (40-130 cm/s) MV A Velocity 73.00 (40-130 cm/s) E/A Ratio 0.56 MV Decel. Time 187.00 (160-240 ms) MV PHT 55.00 ms Left Ventricle Left atrium is mildly enlarged, left ventricle is normal size mild concentric left ventricular hypertrophy, estimated ejection fraction 55% with no regional wall motion abnormality, diastolic parameters are inconclusive. Right Ventricle Right atrium and right ventricle are normal size and contractility. Aortic Valve Aortic valve is thickened and calcified without aortic stenosis, there is mild aortic insufficiency. Mitral Valve Mitral valve has mitral annular calcification, there is no mitral stenosis, there is mild mitral regurgitation. Tricuspid Valve Tricuspid valve grossly normal, there is mild tricuspid regurgitation, tricuspid regurgitation jet velocity is inadequate for calculation of the right ventricular systolic pressure. Pulmonic Valve Pulmonic valve is poorly visualized. Great Vessels Aortic root is normal size. Inferior vena cava is poorly visualized. Pericardium No significant pericardial effusion noted. Conclusion 1. Mildly enlarged atrium, normal left ventricular size, mild concentric left ventricular hypertrophy, estimated ejection fraction 55% with no regional wall motion abnormality, diastolic parameters are inconclusive. 2. Thickened and calcified aortic valve without aortic stenosis, there is mild aortic insufficiency. 3. Mild mitral and tricuspid regurgitation. 4. No significant pericardial effusion noted 5. Inferior vena cava is poorly visualized. Electronically signed by : Bertram Muniz MD 03/22/2022 20:34:12
[2022-03-22 14:40] LABS: CATHL Activated Clotting Time 257 SEC (74-125)
--- NOTE | 2022-03-22 17:48 | PC.NURSE ---
PT IS RESTING IN BED WITH FAMILY AT BEDSIDE. ALERT AND ORIENTED X4. DRESSING TO THE RIGHT GROIN AND RIGHT RADIAL C/D/I. CATH VSS. PT TOLERATED AMBULATING TO THE BATHROOM STANDBY ASSIST. EATING AND DRINKING WELL. LUNG SOUNDS CLEAR. ABDOMEN SOFT/NON TENDER WITH ACTIVE BOWEL SOUNDS. NSR ON TELEMETRY. WILL CONTINUE TO MONITOR.
--- NOTE | 2022-03-22 21:48 | PC.NURSE ---
pt ambulated to BR with standby assist at this time, tolerated well.
[2022-03-23] VITALS: PULSE 80
[2022-03-23 04:00] VITALS: BP 127/63; PULSE 70; PULSE 77; RESP 16; TEMP 37.1; O2SAT 94
[2022-03-23 05:11] VITALS: BMI 22.9
--- NOTE | 2022-03-23 05:39 | PC.NURSE ---
pt rested well t/o the night. no complaints this shift. VSS. ambulated to BR with standby assist, tolerated well. R radial cath site dressing intact with scant amount of blood noted. R femoral cath site dressing C/D/I. BUE and BLE pink and warm, peripheral pulses 2+. telemetry shows NSR and sinus arrhythmia with HR 68-80. call light within reach, no needs at this time.
[2022-03-23 06:31] LABS: Basophils # 0.1 K/mm3 (0-0.2); Basophils % 0.6 % (0.1-2.0); Eosinophils # 0.1 K/mm3 (0.0-0.4); Eosinophils % 0.7 % (0.1-12.0); Hematocrit 40.4 % (37.0-47.0); Hemoglobin 12.6 g/dL (12.2-16.2); Lymphocytes # 1.3 K/mm3 (0.7-4.5); Lymphocytes % 15.5 % (10-50); Mean Corpuscular HGB Conc 31.1 g/dL (31.8-35.4); Mean Corpuscular Hemoglobin 30.8 pg (27.0-31.2); Mean Corpuscular Volume 99.1 fl (81-99); Mean Platelet Volume 8.7 fl (7.4-10.4); Monocytes # 0.6 K/mm3 (0.1-1.0); Monocytes % 6.9 % (1.7-9.3); Neutrophils # 6.4 K/mm3 (1.8-7.8); Neutrophils % 76.2 % (37.0-80.0); Platelet Count 288 K/mm3 (142-424); Red Blood Count 4.08 M/mm3 (4.20-5.40); Red Cell Distribution Width 14.2 % (11.5-17.5); White Blood Count 8.3 K/mm3 (4.8-10.8)
[2022-03-23 06:33] LABS: Chloride 110 mmol/L (98-107); Potassium 4.2 mmoL/L (3.5-5.1); Sodium 140 mmol/L (136-145)
[2022-03-23 06:36] LABS: Anion Gap 7.2 mEq/L (5-15); Blood Urea Nitrogen 19 mg/dl (7-17); Carbon Dioxide 27 mmol/L (22.0-30.0); Creatinine Clearance Estimated 40 mL/min (50-200); Estimated Glomerular Filt Rate 53 ml/min (>60); GFR (African American) 64 ML/MIN (>60)
[2022-03-23 06:37] LABS: Calcium 8.9 mg/dl (8.4-10.2); Glucose 101 mg/dl (74-100)
[2022-03-23 08:00] VITALS: BP 118/60; PULSE 84; PULSE 85; RESP 18; TEMP 36.6; O2SAT 92
--- NOTE | 2022-03-23 08:36 | HMH.PNCARD ---
Subjective Date: 03/23/22 Time: 08:30 Principal diagnosis: celiac stenosis, PAD Interval history: This is an 86-year-old white female who was brought in as an outpatient to undergo abdominal angiogram and renal angiogram for an abnormal CT abdomen which showed high-grade stenosis of the celiac artery and renal artery. During the angiogram yesterday the patient was found to have normal bilateral renal arteries. She did have high-grade stenosis to her celiac artery and underwent stenting of the celiac artery. The patient had been having some abdominal ischemia and 27 pound weight loss. She also had stenting of the right common iliac artery. The patient tolerated these procedures well. She will be on aspirin and Plavix for dual antiplatelet therapy following the stenting. She denies any chest pain or pressure. She denies any shortness of breath or edema. She denies any fever, chills, nausea, vomiting, diarrhea, PND or orthopnea. She did eat breakfast this morning with no complaints. She does have some tenderness to the right groin but no hematoma is palpated. Exam Vital signs and Labs for Last 24 Hours: Temp Pulse Resp BP Pulse Ox 98.8 F 77 16 127/63 94 L 03/23/22 04:00 03/23/22 04:00 03/23/22 04:00 03/23/22 04:00 03/23/22 04:00 Laboratory Results - last 24 hr 03/22/22 13:18: Activated Clotting Time 257 H* 03/23/22 06:02: WBC 8.3, RBC 4.08 L, Hgb 12.6, Hct 40.4, MCV 99.1 H, MCH 30.8, MCHC 31.1 L, RDW 14.2, Plt Count 288 D, MPV 8.7, Neut % (Auto) 76.2, Lymph % (Auto) 15.5, [place] % (Auto) 6.9, Eos % (Auto) 0.7, Baso % (Auto) 0.6, Neut # (Auto) 6.4, Lymph # (Auto) 1.3, [place] # (Auto) 0.6, Eos # (Auto) 0.1, Baso # (Auto) 0.1 03/23/22 06:02: Sodium 140, Potassium 4.2, Chloride 110 H, Carbon Dioxide 27, Anion Gap 7.2, BUN 19 H, Creatinine 1.00, Estimated Creat Clear 40, Estimated GFR 53 L, Est GFR ( Amer) 64, Glucose 101 H, Calcium 8.9 I & O for Last 24 hours: Intake & Output 03/20/22 03/21/22 03/22/22 03/23/22 23:59 23:59 23:59 23:59 Intake Total 240 / 240 Balance 240 / 240 Weight 143 lb 2 oz 134 lb 9 oz Narrative: Abdominal and renal angiogram showed: Right renal artery singular widely patent Left renal artery singular widely patent Celiac artery has an ostial 70 to 80% stenosis IMPRESSION Widely patent singular renal arteries bilaterally Severe celiac artery stenosis Successful stenting of the celiac artery severe disease reduced to less than 10% with 1 bare-metal balloon mounted stent Successful stenting of the right common iliac artery reducing the foreign obstructing lesion to less than 10% as described above PLAN 1. Dual antiplatelet therapy for 1 month 2. Encourage an advancement of diet starting with liquids and advancing to soft and then intermittently regular. Patient has experienced a severe 27 pound weight loss over the last couple of months with intestinal angina symptoms. It may take a couple of days to possibly a week or so before the GI tract completely picks up and is able to accommodate a full diet. 3. Risk factor modification Echocardiogram showed: 1. Mildly enlarged atrium, normal left ventricular size, mild concentric left ventricular hypertrophy, estimated ejection fraction 55% with no regional wall motion abnormality, diastolic parameters are inconclusive. 2. Thickened and calcified aortic valve without aortic stenosis, there is mild aortic insufficiency. 3. Mild mitral and tricuspid regurgitation. 4. No significant pericardial effusion noted 5. Inferior vena cava is poorly visualized. - Constitutional no acute distress, thin - *Routine HEENT Exam Head: Present: normocephalic, atraumatic Eye: Present: EOMI, PERRL ENT: Present: mucous membranes moist - *Routine Neck Exam Present: supple, full ROM, normal carotid upstroke. Absent: JVD, carotid bruit, lymphadenopathy - *Routine Respiratory Exam Present: CTA bilaterally - *Routine Cardiovascul
--- NOTE | 2022-03-23 09:19 | HMH.PHACLD ---
Fabby Sidhu has received discharge medication counseling on the following medications: ASPIRIN (NEW) PLAVIX (NEW) ATORVASTATIN (NEW) PATIENT RECEIVED PERIPHERAL STENT. PATIENT VERBALIZED UNDERSTANDING AND HAD NO QUESTIONS AT THIS TIME. -ALEJANDRO DRAPER, PHARMD
== END 2022-03-23 09:34 | disposition home or self-care (01) ==
LOC: CATHLAB 08:46 → 2ND 14:10
PROVIDERS: PCP Family Medicine; Visit Provider Internal Medicine
DX: I77.4 Celiac artery compression syndrome (principal); I10 Essential (primary) hypertension; I44.4 Left anterior fascicular block; I70.1 Atherosclerosis of renal artery; I48.0 Paroxysmal atrial fibrillation; I77.1 Stricture of artery; R63.4 Abnormal weight loss; R94.31 Abnormal electrocardiogram [ECG] [EKG]; Z79.899 Other long term (current) drug therapy; Z82.49 Family history of ischemic heart disease and other diseases of the circulatory system
CPT/HCPCS: 36245; 36415; 37221; 75726; 80048; 85025; 85347; 93306; 99152; 99153; C1725; C1760; C1769; C1876; C1894; J1644; Q9967

== ENCOUNTER → 2022-04-04 13:56 | Outpatient (CLI) | payer MEDICARE, SELFPAY ==
--- NOTE | 2022-04-04 13:57 | CA_ITS ---
FINAL REPORT CLINICAL HISTORY: R/O PSEUDO PT HAD CATH ON 03/22/22 C/O PAIN,REDNESS AT CATH SITE FINDINGS: Spectral and Doppler waveform evaluations of the right wrist was performed. Spectral analysis was performed. The right radial artery is patent. There is no evidence of pseudoaneurysm or AV fistula. There is an 8 mm fluid collection in the wrist, may represent a small hematoma. IMPRESSION: No evidence of pseudoaneurysm. Possible hematoma. Reviewed, Interpreted and Dictated by Javon Blair III, MD Transcribed by Porsha Ledesma Authenticated and [facility]
== END ==
PROVIDERS: PCP Family Medicine; Visit Provider Physician Assistant
DX: G89.18 Other acute postprocedural pain (principal); I77.1 Stricture of artery
CPT/HCPCS: 93931

== ENCOUNTER 2022-04-12 14:23 | Outpatient (CLI) | payer MEDICARE, SELFPAY ==
--- NOTE | 2022-04-12 | CA_ITS ---
FINAL REPORT CLINICAL HISTORY: Patient was scanned after 30 minutes after band compression. Then part 2 was scanned after 30 minutes of manual compression for treatment of pseudoaneurysm of right wrist. FINDINGS: UPPER EXTREMITY ARTERIAL DUPLEX RIGHT WRIST Sonographic images were obtained of the right radial artery. After 30 minutes of band compression there is partial improvement in the pseudoaneurysm with a small amount of residual flow. After 30 additional minutes of manual compression no flow is seen within the pseudoaneurysm. IMPRESSION: Resolution of pseudo-aneurysm post compression. Reviewed, Interpreted and Dictated by Javon Blair III, MD Transcribed by Anastacio Orozco Authenticated and . [facility]
--- NOTE | 2022-04-12 14:26 | CA_ITS ---
FINAL REPORT CLINICAL HISTORY: Patient had a angiogram on 03/22/22 with right wrist access. Presents today with a knot in the right wrist and seeping blood. FINDINGS: Spectral and Doppler waveform evaluations of the right wrist was performed. Spectral analysis was performed. There is a 9 x 4 mm hypoechoic focus anterior to the radial artery with some partial blood flow consistent with a small pseudoaneurysm. IMPRESSION: Small pseudoaneurysm as above. Reviewed, Interpreted and Dictated by Javon Blair III, MD Transcribed by Porsha Ledesma Authenticated and . [facility]
[2022-04-12 15:06] VITALS: BP 152/91; PULSE 60; RESP 20; TEMP 36.6; O2SAT 100
[2022-04-12 15:08] VITALS: BMI 23.8
[2022-04-12 16:56] VITALS: BP 144/84; PULSE 60; RESP 20; O2SAT 94
--- NOTE | 2022-04-12 16:58 | SUR.PHASEII ---
ULTRASOUND AFTER 1 HOUR OF TR BAND SHOWED CONTINUED PSEUDO, 30 MINUTES OF MANUAL PRESSURE HELD. AFTER 30 MIN MANUAL PRESSURE ULTRASOUND OF WRIST PERFORMED THAT SHOWED NO MORE PSEUDO AND/OR BLEED.
== END 2022-04-12 17:00 | disposition home or self-care (01) ==
PROVIDERS: PCP Family Medicine; Visit Provider Internal Medicine
DX: I72.9 Aneurysm of unspecified site (principal); I77.1 Stricture of artery; I72.4 Aneurysm of artery of lower extremity
CPT/HCPCS: 93931

== ENCOUNTER → 2022-11-02 11:23 | Outpatient (CLI) | payer MEDICARE, SELFPAY ==
[2022-11-02 12:44] LABS: Blood Urea Nitrogen 15 mg/dl (7-17); Estimated Glomerular Filt Rate 68 ml/min (>60); GFR (African American) 82 ML/MIN (>60)
== END ==
PROVIDERS: PCP Family Medicine; Visit Provider Internal Medicine
DX: Z01.812 Encounter for preprocedural laboratory examination (principal)
CPT/HCPCS: 36415; 82565; 84520

== ENCOUNTER → 2022-11-10 07:46 | Outpatient (CLI) | payer MEDICARE, SELFPAY ==
--- NOTE | 2022-11-10 07:52 | CT_ITS ---
FINAL REPORT TECHNIQUE: The patient was injected with IV contrast. Axial images were obtained through the chest in a PE protocol. 3-D reconstruction images were also performed. Individualized dose reduction techniques using automated exposure control or adjustment of the MA and/or KV according to patient's size were employed. CLINICAL HISTORY: thoracic aneurysm COMPARISON: 03/18/2022 FINDINGS: Mediastinal vasculature is adequately opacified. No pulmonary artery filling defects are identified to suggest PE. There is no aortic dissection. Ascending aorta measures 3.5 cm in maximum diameter. There is no axillary adenopathy. There is no mediastinal mass or adenopathy. The heart size is normal. There is no pericardial or pleural effusion. Calcified granuloma left upper lobe is again noted. There is some scarring in the right middle lobe. Limited images of the upper abdomen demonstrate benign-appearing cyst measuring up to 8.2 cm in left kidney. IMPRESSION: No pulmonary embolus or dissection. Ascending aorta measures 3.5 cm Reviewed, Interpreted and Dictated by Jagdish Justin MD Transcribed by Brenna Hendricks Authenticated and [facility]
== END ==
PROVIDERS: PCP Family Medicine; Visit Provider Nurse Practitioner Family
DX: I71.20 Thoracic aortic aneurysm, without rupture, unspecified (principal)
CPT/HCPCS: 71275; Q9967

== ENCOUNTER 2022-11-21 08:31 | Day surgery (SDC) | payer MEDICARE, SELFPAY ==
[2022-11-21 08:53] VITALS: BMI 23.8
[2022-11-21 09:27] VITALS: BP 138/87; PULSE 108; RESP 16; TEMP 37; O2SAT 97
[2022-11-21 10:03] VITALS: BP 160/84; PULSE 75; RESP 20; O2SAT 90
--- NOTE | 2022-11-21 10:13 | ECG_ITS ---
APPROVED REPORT Exam: Resting ECG HR:60 bpm ECG Measurements Heart Rate 60 AXES NE 206 P 50 QRSd 109 QRS -29 QT 434 T -3 QTc 434 Conclusion SINUS RHYTHM WITH OCCASIONAL SUPRAVENTRICULAR PREMATURE COMPLEXES BORDERLINE LEFT AXIS DEVIATION [QRS AXIS < -20] BORDERLINE ECG UNCONFIRMED REPORT Electronically signed by : Fausto Rubin MD 11/21/2022 20:30:39
[2022-11-21 10:20] VITALS: BP 155/78; PULSE 76; RESP 16; O2SAT 98
--- NOTE | 2022-11-21 10:24 | P.PCN_ITS ---
[facility] Cardioversion Cardioversion Date: 11/21/22 Provider:: ALAN May Procedure Performed:: Synchronized electrical cardioversion Diagnosis:: Atrial fibrillation Procedure Summary:: Patient was brought to the cardiac Application Operations Engineer as an outpatient. After informed consent was obtained, sedation was achieved using a combination of Versed and fentanyl and then a single synchronized shock at 150 J was used to convert the patient from atrial fibrillation to sinus rhythm with PACs. Patient tolerated the procedure well. No complications noted. Complications:: None Conculsion:: Continue home medications Routine follow-up in 1 week
[2022-11-21 11:07] VITALS: BP 140/55; PULSE 72; RESP 20; O2SAT 95
== END 2022-11-21 11:10 | disposition home or self-care (01) ==
PROVIDERS: PCP Family Medicine; Visit Provider Internal Medicine
PROC: 5A2204Z Restoration of Cardiac Rhythm, Single (ICD-10-PCS; principal; 2022-11-21 09:00)
DX: I48.0 Paroxysmal atrial fibrillation (principal); Z79.01 Long term (current) use of anticoagulants; Z79.899 Other long term (current) drug therapy; I77.1 Stricture of artery; I70.1 Atherosclerosis of renal artery; I10 Essential (primary) hypertension; R94.31 Abnormal electrocardiogram [ECG] [EKG]
CPT/HCPCS: 92960; 93005; 99152

== ENCOUNTER → 2022-12-26 07:13 | Outpatient (CLI) | payer MEDICARE, SELFPAY ==
--- NOTE | 2022-12-26 | CA_ITS ---
APPROVED REPORT Exam: Pharmacologic Technologist: Vicki Ruiz, Ht: 5 ft 4 in Wt: 136 lbs BSA: 1.66 m2 HR: 108 bpm BP: 170/106 mmHg Rhythm: AFIB Medical History Medical History: HTN, Hyperlipidemia Medications: Amlodipine,,,,, Atorvastatin,,,,, Restasis,,,,, CloPIdogrel,,,,, Vit B12,,,,, Cyclobenzaprine,,,,, Fexofenadine,,,,, RIvaROXABAN,,,,, Metoprolol Succinate ER,,,,, Allergies: PENICILLINS, SULFA Cardiac Risk Factors: HTN, Hyperlipidemia, FHX of CAD Stress Test Details Test: LEXISCAN HR Resting HR: 109 bpm Max Heart Rate (APMHR): 135 bpm Max HR Achieved: 140 bpm Target HR (85% APMHR): 115 bpm % of APMHR: 104 Recovery HR: 118 bpm BP Resting BP: 165/95 mmHg Max BP: 170/106 mmHg Recovery BP: 133.0/91.0 mmHg ECG Resting ECG: AFIB Clinical Exercise duration: 04:14 min Highest Stage Achieved: Exercise capacity: n/a METs Stress ECG Conclusion PT HAD SOA AFIB, OCCASIONAL PVC NO ISCHEMIC CHANGES Test Summary REST . . . . . . . Resting REST 09:44 . . 109 . 165/ 95 . . Stage 1 01:00 . . 122 . . . . Stage 2 01:00 . . 109 . . . . Stage 3 01:00 . . 113 . 144/ 74 . . Stage 4 01:00 . . 122 . 145/ 80 . . Stage 4 01:14 . . 102 . 145/ 80 . Stop exercise at 04:14 RECOVERY 01:00 . . 129 . . . . RECOVERY 02:00 . . 118 . 117/ 77 . . RECOVERY 03:00 . . 130 . 117/ 77 . . RECOVERY 04:00 . . 123 . 133/ 91 . . RECOVERY 04:05 . . 127 . 133/ 91 . . Electronically signed by : Angelica Crook, 12/26/2022 16:48:37
--- NOTE | 2022-12-26 07:14 | NM_ITS ---
APPROVED REPORT Exam: Nuclear Stress Test Indication: HTN, HYPERLIPIDEMIA, SOB, PALPIATATIONS, A-FIB Patient Location: Outpatient Stress Tech: Vicki Ruiz [place] Tech:Christy CokerLEONEL RT (R)(N)(M) Ht: 5 ft 5 in Wt: 140 lbs Bra Size: B HR: 108 bpm BP: 170/106 mmHg BSA: 1.70 m2 TID: 1.03 BMI: 23.2 History: HTN, HYPERLIPIDEMIA, SOB, PALPIATATIONS, A-FIB Procedure: Patient received 0.4 mg of intravenous Lexiscan, resting heart rate 108 bpm, resting blood pressure 170/106 mmHg, with Lexiscan maximum heart rate achieved was 125 bpm which is % of the maximum predicted heart rate and blood pressure was 144/74 mmHg. With Lexiscan, patient denied any complaint of chest pain. Cardiac Stress and Resting SPECT Images: Cardiac Stress and Resting SPECT images were obtained using technetium 99m Myoview 29.4 mCi stress and 10.26 mCi at rest. Resting and stress images demonstrate no reversible or fixed perfusion defects. Gated imaging demonstrated mild to moderate reduction in LV systolic global function. LVEF is calculated at 40%. Conclusion: No reversible or fixed perfusion defects. Gated imaging demonstrated mild to moderate reduction in LV systolic global function. LVEF is calculated at 40%. Findings are suggestive of non-ischemic cardiomyopathy. Electronically signed by : Angelica Crook, 12/26/2022 16:55:13
== END ==
PROVIDERS: PCP Family Medicine; Visit Provider Nurse Practitioner Family
DX: I10 Essential (primary) hypertension (principal); I48.0 Paroxysmal atrial fibrillation; I48.91 Unspecified atrial fibrillation; I70.1 Atherosclerosis of renal artery; I73.9 Peripheral vascular disease, unspecified; I77.1 Stricture of artery; R06.09 Other forms of dyspnea; R07.89 Other chest pain; R94.31 Abnormal electrocardiogram [ECG] [EKG]
CPT/HCPCS: 78452; 93017; 93306; A9502; J2785

== ENCOUNTER → 2023-01-06 10:16 | Outpatient (CLI) | payer MEDICARE, SELFPAY ==
[2023-01-06 12:00] LABS: Anion Gap 13.4 mEq/L (5-15); Blood Urea Nitrogen 17 mg/dl (7-17); Calcium 9.1 mg/dl (8.4-10.2); Carbon Dioxide 27 mmol/L (22.0-30.0); Chloride 106 mmol/L (98-107); Estimated Glomerular Filt Rate 60 ml/min (>60); GFR (African American) 72 ML/MIN (>60); Glucose 89 mg/dl (74-100); Potassium 4.4 mmoL/L (3.5-5.1); Sodium 142 mmol/L (136-145)
== END ==
PROVIDERS: PCP Family Medicine; Visit Provider Physician Assistant
DX: I10 Essential (primary) hypertension (principal); I48.0 Paroxysmal atrial fibrillation; I48.91 Unspecified atrial fibrillation; I70.1 Atherosclerosis of renal artery; I77.1 Stricture of artery; R06.09 Other forms of dyspnea; R07.89 Other chest pain; R94.31 Abnormal electrocardiogram [ECG] [EKG]
CPT/HCPCS: 36415; 80048

== ENCOUNTER → 2023-04-03 13:51 | Outpatient (CLI) | payer MEDICARE, SELFPAY ==
[2023-04-03 14:59] LABS: Basophils # 0.1 K/mm3 (0-0.2); Basophils % 0.9 % (0.1-2.0); Eosinophils # 0.2 K/mm3 (0.0-0.4); Eosinophils % 2.2 % (0.1-12.0); Hematocrit 41.3 % (37.0-47.0); Hemoglobin 13.1 g/dL (12.2-16.2); Lymphocytes # 1.6 K/mm3 (0.7-4.5); Lymphocytes % 24.4 % (10-50); Mean Corpuscular HGB Conc 31.7 g/dL (31.8-35.4); Mean Corpuscular Volume 88.3 fl (81-99); Mean Platelet Volume 9.4 fl (7.4-10.4); Monocytes # 0.6 K/mm3 (0.1-1.0); Monocytes % 8.4 % (1.7-9.3); Neutrophils # 4.3 K/mm3 (1.8-7.8); Neutrophils % 64.2 % (37.0-80.0); Platelet Count 293 K/mm3 (142-424); Red Blood Count 4.68 M/mm3 (4.20-5.40); Red Cell Distribution Width 16.7 % (11.5-17.5); White Blood Count 6.7 K/mm3 (4.8-10.8)
[2023-04-03 15:23] LABS: Chloride 108 mmol/L (98-107)
[2023-04-03 15:24] LABS: Potassium 4.4 mmoL/L (3.5-5.1); Sodium 142 mmol/L (136-145)
[2023-04-03 15:26] LABS: Alanine Aminotransferase 16 U/L (12-78); Albumin Level 3.3 g/dl (3.5-5.0); Alkaline Phosphatase 97 U/L (38-126); Anion Gap 12.4 mEq/L (5-15); Aspartate Amino Transferase 18 U/L (14-36); Bilirubin,Indirect 0.6 mg/dL (0.0-0.9); Bilirubin,Total 0.6 mg/dl (0.2-1.3); Bilirubin,Unconjugated 0.6 mg/dL (0.0-1.1); Blood Urea Nitrogen 19 mg/dl (7-17); Carbon Dioxide 26 mmol/L (22.0-30.0); Cholesterol 105 mg/dl (140-200); Estimated Glomerular Filt Rate 43 ml/min (>60); GFR (African American) 52 ML/MIN (>60); Total Protein,Serum 7.1 g/dl (6.3-8.2); Triglycerides 88 mg/dl (30-150); VLDL Cholesterol 18 mg/dL (0-40)
[2023-04-03 15:27] LABS: Calcium 9.2 mg/dl (8.4-10.2); Chol/HDL Ratio 2.7 (1-3.5); Glucose 103 mg/dl (74-100); HDL Cholesterol 39 mg/dl (40-60); Magnesium 2.1 mg/dl (1.6-2.3)
[2023-04-03 15:43] LABS: Free T4 (Free Thyroxine) 1.88 ng/dl (0.78-2.19)
[2023-04-03 15:44] LABS: Direct LDL Cholesterol 49.04 mg/dL (100-129)
[2023-04-03 15:57] LABS: Thyroid Stimulating Hormone 3.06 uIU/mL (0.465-4.68)
== END ==
PROVIDERS: PCP Family Medicine; Visit Provider Internal Medicine
DX: R06.09 Other forms of dyspnea (principal); R07.89 Other chest pain; I10 Essential (primary) hypertension; I48.0 Paroxysmal atrial fibrillation; I70.1 Atherosclerosis of renal artery; I73.9 Peripheral vascular disease, unspecified; I77.1 Stricture of artery; R53.83 Other fatigue; R94.31 Abnormal electrocardiogram [ECG] [EKG]
CPT/HCPCS: 36415; 80048; 80061; 80076; 83735; 84439; 84443; 85025; 93225

== ENCOUNTER → 2023-04-12 10:43 | Outpatient (CLI) | payer MEDICARE, SELFPAY ==
[2023-04-12 11:48] LABS: Anion Gap 15.8 mEq/L (5-15); Blood Urea Nitrogen 18 mg/dl (7-17); Carbon Dioxide 21 mmol/L (22.0-30.0); Chloride 108 mmol/L (98-107); Estimated Glomerular Filt Rate 43 ml/min (>60); GFR (African American) 52 ML/MIN (>60); Glucose 95 mg/dl (74-100); Potassium 4.8 mmoL/L (3.5-5.1); Sodium 140 mmol/L (136-145)
== END ==
PROVIDERS: PCP Family Medicine; Visit Provider Nurse Practitioner
DX: R79.89 Other specified abnormal findings of blood chemistry (principal)
CPT/HCPCS: 36415; 80048

== ENCOUNTER → 2023-04-20 14:46 | Outpatient (CLI) | payer MEDICARE, SELFPAY ==
--- NOTE | 2023-04-20 14:54 | CA_ITS ---
APPROVED REPORT EXAM: Comprehensive 2D, Doppler, and color-flow Echocardiogram Ballaster: Leann Riley, RCS, RVS Ht: 5 ft 4 in Wt: 139lbs BSA: 1.68 BP: 169/83 mmHg Rhythm: Atrial Fibrillation Indications: afib/aflutter, Murmurs, HTN, Fatigue 2D Dimensions IVSd 1.23 cm F: 0.6-1.0 LVEF (Visual) 64.30 % PWd 1.26 cm F: 0.6 - 1.0 LA Volume 92.40 mL LVDd 4.58 cm F: 3.9 - 5.3 LA Volume Index [id number] mL/m2 (M/F) 16-34 LVDs 2.98 cm F: 2.2 - 3.5 Aortic Root 3.06 cm F: 2.7 - 3.3 Left Atrium 3.43 cm F: 2.7 - 3.8 LVOT 2.06 cm (M/F) 1.5-2.5 M-Mode Dimensions RVDd 2.47 cm (0.9-2.6) LA Diam 4.41 cm (1.9-4.0) LVDd 4.01 cm (3.5-5.7) Ao Diam 3.55 cm (2.0-3.7) LVDs 2.83 cm (3.5-5.7) IVSd 1.39 cm (0.6-1.1) PWd 1.07 cm (0.6-1.1) EF (Teich) 57.00% EPSs 0.65 cm FS 29.40% EDV (Teich) 70.40 mL TAPSE 2.08 (<1.7) ESV (Teich) 30.30 mL LV Diastology E Decel Time 190.00 (160-240 msec) E/A Ratio 5.82 MED E' 6.00 (< 7 cm/sec) MED A' 6.70 cm/s E'/MED E' Ratio 14.75 (>14) LAT E' 10.10 (<10 cm/sec) LAT A' 3.60 cm/s E/LAT E' Ratio 8.76 (>14) Aortic Valve LVOT Max 79.00 (70-110 cm/s) LVOT VTI 14.55 cm AoV Peak Alexi. 146.00 (50-130 cm/s) AI PHT 537.00 ms AO Peak GR. 8.50 mmHg AO Mean GR. 4.20 (<5 mmHg) AO VTI 25.62 (18-25 cm) LESTER (VTI) 1.89 (2.5-4.5 cm2) Mitral Valve MV A Velocity 15.00 (40-130 cm/s) E/A Ratio 5.82 MV Decel. Time 190.00 (160-240 ms) Pulmonary Valve HI End VMAX 155.00 cm/s Tricuspid Valve TR P. Velocity 218.00 cm/s RAP Estimate 10.00 mmHg RVSP 29.00 mmHg Left Ventricle The left ventricle is normal size. The left ventricular systolic function is low normal. There is increased LV wall thickness. There is low normal LV segmental wall motion. Diastolic function is indeterminate. LVEF is 50%. Right Ventricle The right ventricle is normal size. The right ventricular systolic function is normal. Atria Left atrium is severely dilated. The right atrium is severely dilated There is no Doppler evidence of interatrial shunt. Aortic Valve Aortic valve is mildly thickened. There is no aortic valvular stenosis. Mild aortic regurgitation. Mitral Valve There is mild mitral annular calcification. The mitral valve is mildly thickened. No evidence of mitral valve stenosis. Mild mitral regurgitation. Tricuspid Valve The tricuspid valve leaflets are thin and pliable. Mild tricuspid regurgitation. RVSP is 20-25 mmHg. Pulmonic Valve The pulmonary valve is normal in structure. Mild pulmonic regurgitation. Great Vessels The aortic root is normal in size. The ascending aorta is normal in size. IVC is normal in size and collapses >50% with inspiration. Pericardium There is no pericardial effusion. Other Information Study Quality: Fair Conclusion Low normal LV systolic function. Severe biatrial dilatation. Mild AI, MR, TR, HI. Electronically signed by : Angelica Crook, 04/25/2023 17:50:48
== END ==
PROVIDERS: PCP Family Medicine; Visit Provider Internal Medicine
DX: I10 Essential (primary) hypertension (principal); I48.0 Paroxysmal atrial fibrillation; I70.1 Atherosclerosis of renal artery; I73.9 Peripheral vascular disease, unspecified; I77.1 Stricture of artery; R06.09 Other forms of dyspnea; R53.83 Other fatigue; R94.31 Abnormal electrocardiogram [ECG] [EKG]
CPT/HCPCS: 93306

== ENCOUNTER → 2023-06-21 12:09 | Outpatient (CLI) | payer MEDICARE, SELFPAY ==
--- NOTE | 2023-06-21 13:02 | MR_ITS ---
APPROVED REPORT Materials Planner/Production Planner: CLINICAL INDICATION Low-normal LVEF on TTE, evaluate for LVEF and possible cardiomyopathy TECHNIQUE Image Acquisition: Cardiac magnetic resonance (CMR) was performed on Siemens Espree MRI 1.5T scanner. Software platform sequences were performed using the Siemens Ardelyx MR B19 platform. A set of three-plane, low-resolution, large [id number] localizers were initially acquired. Then axial, coronal, sagittal TrueFISP, as well as axial HASTE images, were obtained. These were followed by gated TrueFISP breathold cinematic sequences obtained in the short axis with 8 mm slices and 2 mm gaps, 2-chamber (vertical long axis), 3-chamber, 4-chamber (horizontal long axis). A bolus of contrast was injected intravenously with first-pass sequences obtained in the short axis and four-chamber planes. After approximately 10 minutes, a TI college scouting coordinator sequence was performed to determine the optimal TI time. Using the optimized TI time, delayed contrast enhancement segmented inversion???recovery TurboFLASH sequences were obtained in the short axis, 2-chamber, 3-chamber, and 4-chamber projections. 2D-velocity phase mapping was performed. Functional parameters were calculated by offline analysis on an independent workstation ([employer] Platform, [employer]). Contrast: ProHance??? (Gadoteridol) FINDINGS MORPHOLOGY AND FUNCTION Left ventricle: The left ventricle is normal in size. The indexed left ventricular end-diastolic volume (LVEDVi) is 68 ml/m2 (reference range 57-105 ml/m2 in males, 56-96 ml/m2 in females). Low-normal left ventricular systolic function is present. There is normal left ventricular wall thickness. There are no regional wall motion abnormalities noted. LVEF is calculated at 54.0 % (reference range 57-77%). Right ventricle: The right ventricle is normal in size. The indexed right ventricular end-diastolic volume (RVEDVi) is 58 ml/m2 (reference range 61-121 ml/m2 in males, 48-112 ml/m2 in females). Normal right ventricular systolic function is present. RVEF is calculated at 54% (reference range 52-72% in males, 51-71% in females). Atria: The left atrium is dilated. The maximum indexed left atrial volume is 62 ml/m2 (reference range 26-52 ml/m2 in males, 27-53 ml/m2 in females). The right atrium is normal in size. The maximum indexed right atrial volume is 48 ml/m2 (reference range 18-90 ml/m2). Aorta: The diameter of the aortic annulus is normal, measuring 25 mm (coronal view reference range 21-30 mm in males, 19-27 mm in females). The diameter of the aortic sinus is normal, measuring 38 mm (coronal view reference range 25-42 mm in males, 24-36 mm in females). The diameter of the sinotubular junction is normal, increased measuring 26 mm (coronal view reference range 18-32 mm in males, 18-28 mm in females). The diameters of the ascending and descending thoracic aorta are normal. Main pulmonary artery: The main pulmonary artery diameter is normal. Pericardium: The pericardial thickness is normal. The pericardial thickness measures 1.7 cm (normal < 4.0 cm). There is no pericardial effusion. VALVES The valvular morphologies in the visualized sequences appear normal. There is mild aortic regurgitation (regurgitant fraction 8%). Systolic anterior motion of the mitral valve is not visualized. Ratio of pulmonary to systemic flow, Qp:Qs ratio = 1 (normal < or = 1.2), demonstrating no evidence of hemodynamically significant shunt. TISSUE CHARACTERIZATION Resting Perfusion: Normal myocardial blood flow at rest. No evidence of resting hypoperfusion. Myocardial Fibrosis and/or edema: Normal gadolinium kinetics are present. No evidence of late gadolinium enhancement is noted, consistent with absence of myocardial scarring, infarc
[2023-06-21 14:03] LABS: Chloride 106 mmol/L (98-107)
[2023-06-21 14:04] LABS: Potassium 4.4 mmoL/L (3.5-5.1); Sodium 140 mmol/L (136-145)
[2023-06-21 14:07] LABS: Anion Gap 12.4 mEq/L (5-15); Blood Urea Nitrogen 16 mg/dl (7-17); Carbon Dioxide 26 mmol/L (22.0-30.0); Estimated Glomerular Filt Rate 47 ml/min (>60); GFR (African American) 57 ML/MIN (>60); Glucose 91 mg/dl (74-100)
== END ==
PROVIDERS: PCP Family Medicine; Visit Provider Internal Medicine
DX: R07.9 Chest pain, unspecified; R94.31 Abnormal electrocardiogram [ECG] [EKG]; I11.9 Hypertensive heart disease without heart failure
CPT/HCPCS: 36415; 75561; 80048; A9576

== ENCOUNTER 2023-09-11 12:58 | Emergency (ER) | payer MEDICARE, SELFPAY ==
[2023-09-11 13:15] VITALS: BP 203/115; PULSE 87; RESP 16; TEMP 36.9; O2SAT 94; BMI 24.9
--- NOTE | 2023-09-11 13:23 | PC.NURSE ---
DR THORPE AT BEDSIDE
[2023-09-11 13:48] LABS: Basophils % 0.6 % (0.1-2.0); Eosinophils # 0.1 K/mm3 (0.0-0.4); Eosinophils % 0.8 % (0.1-12.0); Hematocrit 39.9 % (37.0-47.0); Lymphocytes # 1.2 K/mm3 (0.7-4.5); Lymphocytes % 18.3 % (10-50); Mean Corpuscular HGB Conc 32.6 g/dL (31.8-35.4); Mean Corpuscular Hemoglobin 28.6 pg (27.0-31.2); Mean Corpuscular Volume 87.8 fl (81-99); Monocytes # 0.5 K/mm3 (0.1-1.0); Monocytes % 7.6 % (1.7-9.3); Neutrophils # 4.9 K/mm3 (1.8-7.8); Neutrophils % 72.7 % (37.0-80.0); Platelet Count 264 K/mm3 (142-424); Red Blood Count 4.54 M/mm3 (4.20-5.40); Red Cell Distribution Width 17.4 % (11.5-17.5); White Blood Count 6.8 K/mm3 (4.8-10.8)
--- NOTE | 2023-09-11 13:55 | ED_ITS ---
Discharge Plan Disposition Patient Disposition: Home, Self-Care Condition: Good Prescriptions Prescriptions: No Action atorvastatin 40 mg tablet 40 mg PO DAILY Qty: 30 5RF metoprolol succinate 25 mg tablet extended release 24 hr 12.5 mg PO DAILY Qty: 30 2RF fexofenadine [Eri Allergy] 180 mg tablet 180 mg PO DAILY Qty: 90 3RF amiodarone 200 mg tablet 200 mg PO DAILY clopidogrel 75 mg tablet 75 mg PO DAILY Qty: 30 5RF valsartan 40 mg tablet 40 mg PO DAILY 30 Days Qty: 30 2RF Eliquis 5 mg tablet 5 mg PO BID Qty: 180 3RF (DME) syringe with needle 3 mL 25 x 5/8 syringe 1 ml .Route .MEDSUPPLY Rx Instructions: As directed Referrals Follow up/Referrals: Alli Negrete MD [Primary Care Provider] - See instructions Activity Restrictions/Add. Instructions Additional Instructions/Restrictions: You were evaluated in the emergency department today. Please follow-up closely with your primary care provider for reassessment. Return to the emergency department for new or worsening symptoms. Try to avoid crossing your legs. Clinical Impressions Clinical Impression: Paresthesia Discharge ED Provider: Zaida Golden General Adult HPI General Chief complaint: Extremity Injury, Upper Stated complaint: coldness in upper R leg x 3 days Time Seen by Provider: 09/11/23 13:21 Mode of Arrival: Ambulatory Source of Information: Patient Limitations: No Limitations Description of Symptoms (Recalled from ER Triage Doc. by RN): Pt. states she has had coldness in her right thigh since Monday. She states she has had intermintent coldness for a few months. She denies pain and weakness. Pulses are 2+ bilaterally. Cap refill <3 seconds BLE. History of Present Illness HPI narrative: This patient is an 88-year-old female with a history of hypertension, hyperlipidemia on a statin, paroxysmal atrial fibrillation, and polymyalgia rheumatica presenting to the emergency department for evaluation with concern that her right proximal thigh feels cold on the inside. She states that it is not cold to the touch. She has no discoloration, bruising, or other concerns. Nothing distally. She states this has happened intermittently in the past but always resolves. She first noticed it on Monday this time, and it is not going away. Given this, she called her primary care provider who advised her to go to the emergency department. She denies any other concerns or complaints. She does note that she crosses her legs a lot and thinks this might be related. She has otherwise been well. Related Data Home Medications Medication Instructions Recorded Confirmed syringe with needle 3 mL 25 x 5/8 02/12/21 06/26/23 amiodarone 200 mg tablet 200 mg PO DAILY 03/27/23 09/11/23 Previous Rx's Medication Instructions Recorded fexofenadine 180 mg tablet 180 mg PO DAILY allergies #90 tabs 04/15/21 (Eri Allergy) clopidogrel 75 mg tablet 75 mg PO DAILY . #30 tabs 12/23/22 atorvastatin 40 mg tablet 40 mg PO DAILY . #30 tabs 06/26/23 metoprolol succinate 25 mg 12.5 mg PO DAILY #30 tabs 06/26/23 tablet,extended release 24 hr valsartan 40 mg tablet 40 mg PO DAILY 30 days #30 tabs 07/19/23 apixaban 5 mg tablet (Eliquis) 5 mg PO BID #180 tabs 08/04/23 Allergies Allergy/AdvReac Type Severity Reaction Status Date / Time Penicillins Allergy Severe Unknown Verified 09/11/23 13:11 allergy reaction Sulfa (Sulfonamide Allergy Severe Unknown Verified 09/11/23 13:11 Antibiotics) allergy reaction [facility] Disclaimer: The information contained in this section may have been updated after the brennan beckett was seen, as this information can be updated by other users. Medical History Abnormal electrocardiography Atrial fibrillation with RVR Biatrial enlargement Celiac artery stenosis Chest pain Dyspnea Elevated serum creatinine Essential hypertension Fatigue Left anterior fascicular block PAF (paroxysmal atrial fibrillation) Renal artery stenosis Thoracic aortic aneurysm Uncompensated short term memory deficit Weight loss Surgical History History of mastectomy Hx laparoscopic cholecystectomy Family History Other No significant family history Social History Smoking Status: Never smoker alcohol intake: never substance use type: denies use current occupational status: retired Travel in the last 8 weeks: Inside the [place] household members: spouse housing: house current occupational exposures/hazards: No caffeine: No ROS Obtained: Yes All systems reviewed & no additional complaints except as documented Physical Exam General General appearance: alert and in no apparent distress Head Head exam: atraumatic and normocephalic Eye Eye exam: Present normal appearance, PERRL and EOMI ENT ENT exam: Present normal exam, normal oropharynx, mucous membranes moist and normal external ear exam Neck Neck exam: Present normal inspection, full ROM and trachea midline; Absent ten derness Chest Chest inspection: Present normal inspection and symmetric chest wall rise; Absent tenderness Respiratory Respiratory exam: Present normal lung sounds bilaterally; Absent respiratory distress, wheezes, stridor or accessory muscle use Cardiovascular Cardiovascular exam: Present regular rate and normal rhythm Abdominal Exam Abdominal exam: Present soft; Absent distention, tenderness or guarding Extremities Exam Extremities exam: Present normal inspection, full ROM and normal capillary refill; Absent tenderness or edema Back Exam Back exam: Present normal inspection and full ROM; Absent tenderness Neurological Exam Neurological exam: Present alert, oriented X3, CN II-XII intact and normal gait; Absent motor sensory deficit Psychiatric Psychiatric exam: Present normal affect and normal mood Skin Skin exam: Present warm and dry Medical Decision Making Medical Records Medical records reviewed: Yes I reviewed the patient's medical records. Lamonte Inquiry Pt receiving controlled substance: No Vital Signs: 09/11/23 13:15 09/11/23 14:01 09/11/23 14:25 Temperature 98.5 F 98.0 F Temperature Source Oral Oral Pulse Rate 81 74 Pulse Rate [Right Brachial] 87 Respiratory Rate 16 20 16 Blood Pressure 177/92 H 180/95 H Blood Pressure [Right Arm] 203/115 H Blood Pressure Mean 115 Blood Pressure Mean [Right Arm] 144 Blood Pressure Source Automatic Cuff Blood Pressure Source [Right Arm] Automatic Cuff Blood Pressure Position Sitting Blood Pressure Position [Right Arm] Sitting 02 Sat by Pulse Oximetry 94 L 96 Oxygen Delivery Method Room Air Room Air Lab Data Lab results reviewed: Yes I reviewed the patient's lab results. Lab Results 09/11/23 13:37: WBC 6.8, RBC 4.54, Hgb 13.0, Hct 39.9, MCV 87.8, MCH 28.6, MCHC 32.6, RDW 17.4, Plt Count 264, MPV 9.0, Neut % (Auto) 72.7, Lymph % (Auto) 18.3, Price % (Auto) 7.6, Eos % (Auto) 0.8, Baso % (Auto) 0.6, Neut # (Auto) 4.9, Lymph # (Auto) 1.2, Price # (Auto) 0.5, Eos # (Auto) 0.1, Baso # (Auto) 0.0, Sodium 140, Potassium 4.1, Chloride 108 H, Carbon Dioxide 27, Anion Gap 9.1, BUN 16, Creatinine 1.20 H, Estimated Creat Clear 35, Estimated GFR 43 L, Est GFR ( Amer) 52 L, Glucose 100, Calcium 9.0, Phosphorus 3.6, Magnesium 2.0, Total Bilirubin 0.8, AST 23, ALT 20, Alkaline Phosphatase 80, Total Creatine Kinase 136 H, Total Protein 7.5, Albumin 3.5, Globulin 4.0 H, Albumin/Globulin Ratio 0.9 L 09/11/23 13:37 09/11/23 13:37 Orders (Tests/Meds): ORDERS Category Date Time Status Complete Blood Count Auto Diff Stat Lab 09/11/23 13:37 Completed Comprehensive Metabolic Panel Stat Lab 09/11/23 13:37 Completed Creatine Kinase Stat Lab 09/11/23 13:37 Completed Magnesium Stat Lab 09/11/23 13:37 Completed Phosphorous Stat Lab 09/11/23 13:37 Completed Medical Decision Narrative: In summary, this patient is a 88-year-old female presenting to the Emergency Department for evaluation of cold sensation deep within her right upper thigh. Differential diagnoses considered include but are not limited to neuropathy, polymyalgia rheumatica, vascular insufficiency. Ruling out the most morbid conditions drove assessment. On exam, the patient is well-appearing. Her thigh is warm and well-perfused. She has good pulses and sensation distally. No swelling or skin color changes. No focal neurovascular deficits. At this time, I do not know exactly what is causing this unless she has a compressive neuropathy from crossing her legs, but given that she is on a statin and also has multiple comorbidities, basic lab work including CBC, CMP, and CK were obtained. Labs were not concerning for any acutely concerning abnormalities. Exam is not concerning for DVT or arterial insufficiency. Given this, I feel that the patient is appropriate for discharge with close follow-up with her primary care provider. I do not know exactly what is causing her symptoms, but I do not feel that it is immediately life- threatening to her at this time. 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 Critical Care Critical Care Time Critical Care Time: No
[2023-09-11 13:58] LABS: Alanine Aminotransferase 20 U/L (12-78); Albumin Level 3.5 g/dl (3.5-5.0); Albumin/Globulin Ratio 0.9 (1.1-1.8); Alkaline Phosphatase 80 U/L (38-126); Anion Gap 9.1 mEq/L (5-15); Aspartate Amino Transferase 23 U/L (14-36); Bilirubin,Total 0.8 mg/dl (0.2-1.3); Blood Urea Nitrogen 16 mg/dl (7-17); Carbon Dioxide 27 mmol/L (22.0-30.0); Chloride 108 mmol/L (98-107); Creatine Kinase 136 U/L (30-135); Creatinine Clearance Estimated 35 mL/min (50-200); Estimated Glomerular Filt Rate 43 ml/min (>60); GFR (African American) 52 ML/MIN (>60); Glucose 100 mg/dl (74-100); Phosphorous 3.6 mg/dl (2.5-4.5); Potassium 4.1 mmoL/L (3.5-5.1); Sodium 140 mmol/L (136-145); Total Protein,Serum 7.5 g/dl (6.3-8.2)
[2023-09-11 14:01] VITALS: BP 177/92; PULSE 81; RESP 20; O2SAT 96
[2023-09-11 14:25] VITALS: BP 180/95; PULSE 74; RESP 16; TEMP 36.7; O2SAT 98
== END 2023-09-11 14:32 | disposition home or self-care (01) ==
PROVIDERS: Emergency Provider Emergency Medicine; PCP Family Medicine
DX: R20.2 Paresthesia of skin (principal); I10 Essential (primary) hypertension; E78.5 Hyperlipidemia, unspecified; I48.0 Paroxysmal atrial fibrillation; M35.3 Polymyalgia rheumatica; Z79.01 Long term (current) use of anticoagulants
CPT/HCPCS: 80053; 82550; 83735; 84100; 85025; 99283

== ENCOUNTER 2023-09-25 13:43 | Outpatient (CLI) | payer MEDICARE, SELFPAY ==
[2023-09-25 14:45] LABS: Basophils % 0.5 % (0.1-2.0); Eosinophils % 0.6 % (0.1-12.0); Hematocrit 38.5 % (37.0-47.0); Hemoglobin 12.5 g/dL (12.2-16.2); Lymphocytes # 1.5 K/mm3 (0.7-4.5); Lymphocytes % 22.6 % (10-50); Mean Corpuscular HGB Conc 32.5 g/dL (31.8-35.4); Mean Corpuscular Hemoglobin 28.3 pg (27.0-31.2); Mean Corpuscular Volume 87.2 fl (81-99); Mean Platelet Volume 9.2 fl (7.4-10.4); Monocytes # 0.5 K/mm3 (0.1-1.0); Monocytes % 7.7 % (1.7-9.3); Neutrophils # 4.7 K/mm3 (1.8-7.8); Neutrophils % 68.6 % (37.0-80.0); Platelet Count 289 K/mm3 (142-424); Red Blood Count 4.41 M/mm3 (4.20-5.40); Red Cell Distribution Width 17.4 % (11.5-17.5); White Blood Count 6.8 K/mm3 (4.8-10.8)
[2023-09-25 15:10] LABS: Alanine Aminotransferase 20 U/L (12-78); Albumin Level 3.5 g/dl (3.5-5.0); Alkaline Phosphatase 91 U/L (38-126); Anion Gap 9.2 mEq/L (5-15); Aspartate Amino Transferase 22 U/L (14-36); Bilirubin,Direct 0.1 mg/dl (0.0-0.4); Bilirubin,Indirect 0.5 mg/dL (0.0-0.9); Bilirubin,Total 0.6 mg/dl (0.2-1.3); Bilirubin,Unconjugated 0.4 mg/dL (0.0-1.1); Blood Urea Nitrogen 14 mg/dl (7-17); Carbon Dioxide 27 mmol/L (22.0-30.0); Chloride 109 mmol/L (98-107); Chol/HDL Ratio 3.1 (1-3.5); Cholesterol 122 mg/dl (140-200); Estimated Glomerular Filt Rate 47 ml/min (>60); GFR (African American) 57 ML/MIN (>60); Glucose 96 mg/dl (74-100); HDL Cholesterol 40 mg/dl (40-60); Magnesium 2.1 mg/dl (1.6-2.3); Potassium 4.2 mmoL/L (3.5-5.1); Sodium 141 mmol/L (136-145); Total Protein,Serum 7.3 g/dl (6.3-8.2); Triglycerides 84 mg/dl (30-150); VLDL Cholesterol 17 mg/dL (0-40)
[2023-09-25 15:21] LABS: Direct LDL Cholesterol 58.01 mg/dL (100-129)
[2023-09-25 15:54] LABS: Thyroid Stimulating Hormone 2.18 uIU/mL (0.465-4.68)
== END 2023-09-25 23:59 ==
LOC: LAB 13:45
PROVIDERS: PCP Family Medicine; Visit Provider Internal Medicine
DX: I10 Essential (primary) hypertension (principal); I48.91 Unspecified atrial fibrillation; I70.1 Atherosclerosis of renal artery; I73.9 Peripheral vascular disease, unspecified; I77.1 Stricture of artery; R53.83 Other fatigue; R79.89 Other specified abnormal findings of blood chemistry; R60.9 Edema, unspecified
CPT/HCPCS: 36415; 80048; 80061; 80076; 83735; 84439; 84443; 85025

== ENCOUNTER 2023-09-29 08:55 | Outpatient (CLI) | payer MEDICARE, SELFPAY ==
--- NOTE | 2023-09-29 09:00 | US_ITS ---
FINAL REPORT CLINICAL HISTORY: RLE cool to touch, PAD,HTN FINDINGS: BILATERAL ANKLE BRACHIAL INDICES Pressure indices are as follows are: RIGHT LOWER EXTREMITY Ankle brachial pressure index: 1.2 Toe brachial pressure index: 0.8 COMMENTS: Normal LEFT LOWER EXTREMITY Ankle brachial pressure index: 1.4 Toe brachial pressure index: 0.8 COMMENTS: Normal IMPRESSION: No evidence of significant obstructive peripheral vascular disease of the lower extremities. Reviewed, Interpreted and Dictated by Jagdish Justin MD Transcribed by Kymberly Johnson Authenticated and [facility]
--- NOTE | 2023-09-29 09:00 | CA_ITS ---
FINAL REPORT TECHNIQUE: Bilateral lower extremity venous duplex was performed with augmentation and compression. CLINICAL HISTORY: PAD, RLE cool to touch COMPARISON: None FINDINGS: Proper flow is seen throughout the deep venous systems bilaterally. There is no evidence of deep venous thrombosis. IMPRESSION: No evidence of deep venous thrombosis. Reviewed, Interpreted and Dictated by Jagdish Justin MD Transcribed by Traci Schmitt Authenticated and [facility]
== END 2023-09-29 23:59 ==
LOC: RT 08:56
PROVIDERS: PCP Family Medicine; Visit Provider Internal Medicine
DX: I10 Essential (primary) hypertension (principal); I48.91 Unspecified atrial fibrillation; I70.1 Atherosclerosis of renal artery; I73.9 Peripheral vascular disease, unspecified; I77.1 Stricture of artery; R53.83 Other fatigue; R60.0 Localized edema; R79.89 Other specified abnormal findings of blood chemistry
CPT/HCPCS: 93923; 93970

== ENCOUNTER 2023-11-21 07:17 | Outpatient (CLI) | payer MEDICARE, SELFPAY ==
--- NOTE | 2023-11-21 07:17 | CT_ITS ---
FINAL REPORT CLINICAL HISTORY: PAD/abnl shailesh COMPARISON: None FINDINGS: Thin section axial CT images of the abdomen, pelvis and lower extremities were obtained with contrast. Multiplanar reformatted images were also obtained and reviewed. ABDOMEN AND PELVIS: There is no abdominal aortic aneurysm or dissection. There is moderate stenosis of the origin of the celiac axis with a stent in place, which is slightly kinked at the origin. The proximal superior mesenteric artery is unremarkable. There is no renal artery stenosis. There is an early bifurcation of the right renal artery. The inferior mesenteric artery is patent. There is no significant stenosis of the right common iliac artery or external right iliac artery. There is no significant stenosis of the left common iliac artery or external left iliac artery. The internal iliac arteries are patent. RIGHT LOWER EXTREMITY: There is no significant stenosis of the right common femoral or superficial femoral arteries. The right deep femoral artery is patent. The right popliteal artery is patent. There is poor contrast enhancement distal to the trifurcation, however at least two-vessel runoff is seen on the right side. LEFT LOWER EXTREMITY: There is no significant stenosis of the left common femoral or superficial femoral arteries. The left deep femoral artery is patent. The left popliteal artery is patent. There is poor contrast enhancement distal to the bifurcation, however at least two-vessel runoff is seen on the left side. OTHER FINDINGS: There is an L3 compression fracture present with 70% loss of vertebral body height. Scarring is present in the lung bases. The gallbladder has been surgically resected. There is moderate distention of the extrahepatic biliary system, with the common duct measuring 12 mm in diameter, likely secondary to prior cholecystectomy. Multiple bilateral renal cysts are noted measuring up to 9.1 x 8.6 cm in size. The bladder is incompletely distended. Multiple phleboliths are noted in the pelvis. IMPRESSION: Moderate stenosis of the origin of the celiac axis with a stent which is slightly kinked at its origin. The SMA and KATELIN are widely patent. There is poor contrast enhancement present below the level of the trifurcation, however there is at least two-vessel runoff on either side. Bilateral renal cysts are present the largest measuring up to 9.1 x 8.6 cm in size. Prior cholecystectomy with moderate distention of the extrahepatic biliary system, likely postoperative change. Reviewed, Interpreted and Dictated by Jagdish Justin MD Transcribed by Traci Schmitt Authenticated and [facility]
[2023-11-21 07:56] LABS: Blood Urea Nitrogen 21 mg/dl (7-17); Estimated Glomerular Filt Rate 47 ml/min (>60); GFR (African American) 57 ML/MIN (>60)
[2023-11-21] MEDS: SODIUM CHLORIDE 0.9% 10ML SYR (RAD ONLY) 10 ML IV (08:50)
[2023-11-21] MEDS: 0.9 % SODIUM CHLORIDE 50 ML VIAL IV (08:50)
[2023-11-21] MEDS: IOPAMIDOL-370 (76%);100ML BOTTLE 120 ML IV (08:50)
== END 2023-11-21 23:59 | disposition home or self-care (01) ==
LOC: RAD 07:17
PROVIDERS: PCP Family Medicine; Visit Provider Internal Medicine
DX: I70.1 Atherosclerosis of renal artery (principal); R60.9 Edema, unspecified; I73.9 Peripheral vascular disease, unspecified; I48.91 Unspecified atrial fibrillation; R06.09 Other forms of dyspnea; I51.7 Cardiomegaly; R79.89 Other specified abnormal findings of blood chemistry; R53.83 Other fatigue; I48.0 Paroxysmal atrial fibrillation; I77.1 Stricture of artery; I10 Essential (primary) hypertension; R94.31 Abnormal electrocardiogram [ECG] [EKG]; R68.89 Other general symptoms and signs
CPT/HCPCS: 36415; 75635; 82565; 84520; Q9967

== ENCOUNTER 2023-12-11 15:02 | Outpatient (CLI) | payer MEDICARE, SELFPAY ==
[2023-12-11 15:58] LABS: Basophils # 0.1 K/mm3 (0-0.2); Basophils % 0.7 % (0.1-2.0); Eosinophils # 0.1 K/mm3 (0.0-0.4); Eosinophils % 0.8 % (0.1-12.0); Hematocrit 40.6 % (37.0-47.0); Hemoglobin 12.6 g/dL (12.2-16.2); Lymphocytes # 1.9 K/mm3 (0.7-4.5); Lymphocytes % 23.6 % (10-50); Mean Corpuscular Hemoglobin 28.1 pg (27.0-31.2); Mean Corpuscular Volume 90.6 fl (81-99); Mean Platelet Volume 9.2 fl (7.4-10.4); Monocytes # 0.7 K/mm3 (0.1-1.0); Monocytes % 9.3 % (1.7-9.3); Neutrophils # 5.2 K/mm3 (1.8-7.8); Neutrophils % 65.5 % (37.0-80.0); Platelet Count 302 K/mm3 (142-424); Red Blood Count 4.49 M/mm3 (4.20-5.40); White Blood Count 7.9 K/mm3 (4.8-10.8)
[2023-12-11 16:39] LABS: Alanine Aminotransferase 28 U/L (12-78); Albumin Level 3.7 g/dl (3.5-5.0); Alkaline Phosphatase 92 U/L (38-126); Anion Gap 11.1 mEq/L (5-15); Aspartate Amino Transferase 27 U/L (14-36); Bilirubin,Direct 0.1 mg/dl (0.0-0.4); Bilirubin,Indirect 0.5 mg/dL (0.0-0.9); Bilirubin,Total 0.6 mg/dl (0.2-1.3); Bilirubin,Unconjugated 0.5 mg/dL (0.0-1.1); Blood Urea Nitrogen 20 mg/dl (7-17); Calcium 9.3 mg/dl (8.4-10.2); Carbon Dioxide 27 mmol/L (22.0-30.0); Chloride 108 mmol/L (98-107); Chol/HDL Ratio 2.3 (1-3.5); Cholesterol 125 mg/dl (140-200); Estimated Glomerular Filt Rate 47 ml/min (>60); GFR (African American) 57 ML/MIN (>60); Glucose 96 mg/dl (74-100); HDL Cholesterol 55 mg/dl (40-60); Potassium 4.1 mmoL/L (3.5-5.1); Sodium 142 mmol/L (136-145); Total Protein,Serum 7.4 g/dl (6.3-8.2); Triglycerides 102 mg/dl (30-150); VLDL Cholesterol 20 mg/dL (0-40)
[2023-12-11 16:50] LABS: Direct LDL Cholesterol 59.77 mg/dL (100-129)
[2023-12-11 16:55] LABS: Free T4 (Free Thyroxine) 1.91 ng/dl (0.78-2.19)
[2023-12-11 17:10] LABS: Thyroid Stimulating Hormone 1.81 uIU/mL (0.465-4.68)
== END 2023-12-11 23:59 | disposition home or self-care (01) ==
LOC: LAB 15:03
PROVIDERS: PCP Family Medicine; Visit Provider Internal Medicine
DX: R06.00 Dyspnea, unspecified; E11.9 Type 2 diabetes mellitus without complications; R60.9 Edema, unspecified; I73.9 Peripheral vascular disease, unspecified; I51.7 Cardiomegaly; R79.89 Other specified abnormal findings of blood chemistry; R53.83 Other fatigue; I48.0 Paroxysmal atrial fibrillation; I77.1 Stricture of artery; I70.1 Atherosclerosis of renal artery; I10 Essential (primary) hypertension; R94.31 Abnormal electrocardiogram [ECG] [EKG]; Z79.899 Other long term (current) drug therapy; K21.9 Gastro-esophageal reflux disease without esophagitis
CPT/HCPCS: 36415; 80048; 80061; 80076; 84439; 84443; 85025

== ENCOUNTER 2023-12-12 08:44 | Outpatient (CLI) | payer MEDICARE, SELFPAY ==
[2023-12-12] VITALS (8 sets, daily range): BP systolic 151–181; BP diastolic 73–109; PULSE 63–81; RESP 16–18; O2SAT 95–98; BMI 23.6
--- NOTE | 2023-12-12 08:44 | CT_ITS ---
APPROVED REPORT Plumber: CLINICAL INDICATION Chest Pain TECHNIQUE Image Acquisition: A 128 slice MDCT scanner (XL Hybridsa View) was used for data acquisition. A noncontrast coronary calcium scan was performed. A CT attenuation threshold of 130 Hounsfield units (HU) was used for the detection of calcium in contiguous voxels of 1 sq mm in area to be counted as individual lesions. Bolus tracking in the ascending aorta with a threshold of 180 HU was performed. Immediately afterwards, ECG synchronized cardiac CT was then performed from the cardiac base to apex using retrospective gating with ECG tube current modulation. A total of 85 mL of Isovue 370 mg/mL contrast medium was administered at 5 mL/sec followed by a saline flush using a biphasic injection protocol. A tube voltage of 120 KVp was used. The patient received the following medications prior to the cardiac CT. 128 mg of oral metoprolol 15 mg of oral ivabradine 0.8 mg of sublingual nitroglycerin The average heart rate at the time of acquisition was 66 bpm and regular. Image Reconstruction Transaxial images were reconstructed at 0.67 mm slide thickness. Data was reviewed interactively on an advanced workstation capable of 2 and 3-dimensional displays in all conventional reconstruction formats, including multiplanar reformations, maximum intensity projections, curved multiplanar reformations, and volume rendered reconstructions. When applicable, selected routine images describing the relevant coronary anatomy and pathology were saved and sent to PACS. Complications None Technical Quality Overall image quality was suboptimal due to significant motion and step artifact. Coronary artery opacification was fair. Total DLP (Dose-Length Product) is 1637.8 mGy-cm. The reported value represents the total of one or more individual components during the CT acquisition of this date and at this time, and as such, the same value may appear in more than one CT report depending on the interpreting/reporting physicians. COMPARISON None FINDINGS CT Coronary Calcium Scoring LMA (Left Main Artery) = 5 LAD (Left Anterior Descending) = 184 LCX (Left Coronary Circumflex) = 12 RCA (Right Coronary Artery) = 41 Total Calcium Score = 242 using the AJ-130 method. The observed calcium score of 242 is at 59th percentile for subjects of the same age, sex, and race/ethnicity. The interpretation of the calcium heart score is based on the following continuum*: 0 = no calcified plaque detected (risk of coronary artery disease is very low ??? less than 5%) 1-10 = calcium detected in extremely minimal levels (risk of coronary diseases is still low ??? less than 10%) 11-100 = mild levels of plaque detected with certainty (mild or minimal narrowing of heart arteries is likely) 101-400 = definite,at least moderate levels of plaque detected (relatively high risk of a heart attack within 3-5 years) >401-999 = extensive levels of plaque detected (high risk of heart attack, high levels of vascular disease are present, high likelihood of at least one significant coronary narrowing) *The calcium heart score quantifies the burden of coronary calcification/plaque in the coronary arteries. The calcium heart score is not able to evaluate the presence or burden of non-calcified (i.e. soft) plaque. There is also identifiable calcification in the aortic valve, mitral annulus, and the ascending and descending thoracic aorta. Coronary CT Angiography The coronary arterial system is right dominant. Quantitative Stenosis Grading: Left Main (LM): The left main originates normally from the left sinus of Valsalva. The LM bifurcates into the left anterior descending artery and left circumflex artery. There is minimal calcification in the proximal LM, with no luminal stenosis. Left Anterior Descending (LAD) and Diagonal Branches: The LAD gives off 3 diagonal branch(es). There is mixed calcified/noncalcified plaque noted in the proximal and mid LAD, with up to 70???90% luminal stenosis in the mid-LAD segment immediately after the bifurcation with a second diagonal branch. Left Circumflex (LCX) and Obtuse Marginals (OM): The LCX gives off 2 Obtuse Marginal (OM) branch(es). There is minimal calcification in the proximal LCx, with no significant luminal stenosis. Right Coronary Artery (RCA): The RCA originates normally from the right sinus of Valsalva. The RCA gives off a posterior descending artery (PDA) and posterolateral (PL) branches. A segment of the proximal RCA is not well-visualized due to significant motion and step artifact. In the visualized segments of the RCA, there is mild calcification, but with no luminal stenosis. Non-Coronary Cardiac Findings: Analysis of the left ventricular (LV) structure and function was performed after 3-D reconstruction of the LV from axial images, with user-corrected automatic contouring for assessment of LV volumes and user-defined reconstruction from oblique planes for measurement of 3-D cardiac structure and function. -The left ventricle systolic function is normal. -There is no left atrial appendage filling defect. Two right pulmonary veins and two left pulmonary veins drain normally into the left atrium. -No pericardial thickening or calcification. -Central and branch pulmonary arteries in the [id number] are unremarkable. -Thoracic aorta within the visualized thoracic aortic-branches in the [id number] is unremarkable. Extracardiac Structures No significant extra-cardiac findings. Note, however, that this study is focused on the cardiac findings. IMPRESSION -Suboptimal image quality due to significant motion and step artifact. Segments of the proximal RCA are not well-visualized. -Presence of coronary calcification with an Agatston score = 242 using the AJ-130 method. -The observed calcium score of 242 is at 59th percentile for subjects of the same age, sex, and race/ethnicity. -Possible evidence of significant flow-limiting atherosclerosis of the mid LAD segment. -Calcification in the aortic valve, mitral annulus, and the ascending and descending thoracic aorta. -CAD-RADS 4A. Management recommendations per ACC/AHA guidelines*, as clinically appropriate. *Recommendations: CAD RADS 0: Reassurance. Consider non-atherosclerotic causes of chest pain. CAD RADS 1: Consider non-atherosclerotic causes of chest pain. Consider preventive therapy and risk factor modification. CAD RADS 2: Consider non-atherosclerotic causes of chest pain. Consider preventive therapy and risk factor modification, particularly for patients with nonobstructive plaque in multiple segments. CAD RADS 3: Consider further functional testing. Consider symptom-guided anti-ischemic and preventive pharmacotherapy as well as risk factor modification per published guideline statements. CAD RADS 4A: Consider further functional testing or invasive coronary angiography with revascularization per published guideline statements. Consider symptom-guided anti-ischemic and preventive pharmacotherapy as well as risk factor modification per published guideline statements. CAD RADS 4B: Invasive coronary angiography recommended with revascularization per published guideline statements. Consider symptom-guided anti-ischemic and preventive pharmacotherapy as well as risk factor modification per published guideline statements. CAD RADS 5: Consider invasive angiography and/or viability assessment with revascularization per published guideline statements. Consider symptom-guided anti-ischemic and preventive pharmacotherapy as well as risk factor modification per published guideline statements. CRITICAL RESULT None COMMUNICATION Per this written report The coronary and cardiac findings of this CCTA were reviewed, reported, and signed by Saji Crook MD (Telecommunications Facility Examiner) Conclusion Electronically signed by : Angelica Crook MD 12/14/2023 12:51:22
[2023-12-12] MEDS: METOPROLOL TARTRATE 25MG TABLET 25 MG (09:16)
[2023-12-12] MEDS: IVABRADINE HCL 7.5MG TABLET PO (09:16)
[2023-12-12] MEDS: METOPROLOL TARTRATE 50MG TABLET PO ×2 (09:16→10:13)
[2023-12-12] MEDS: NITROGLYCERIN 0.4MG SL TABLET SL (10:43)
[2023-12-12] MEDS: METOPROLOL TARTRATE 5MG/5ML VIAL 5 MG IV (10:51)
[2023-12-12] MEDS: SODIUM CHLORIDE 0.9% 10ML SYR (RAD ONLY) 10 ML IV (11:00)
[2023-12-12] MEDS: 0.9 % SODIUM CHLORIDE 50 ML VIAL IV (11:00)
[2023-12-12] MEDS: IOPAMIDOL-370 (76%);100ML BOTTLE 85 ML IV (11:01)
== END 2023-12-12 11:26 | disposition home or self-care (01) ==
PROVIDERS: PCP Family Medicine; Visit Provider Internal Medicine
DX: R60.9 Edema, unspecified (principal); I73.9 Peripheral vascular disease, unspecified; I48.91 Unspecified atrial fibrillation; R06.09 Other forms of dyspnea; R07.89 Other chest pain; R53.83 Other fatigue; R79.89 Other specified abnormal findings of blood chemistry; I51.7 Cardiomegaly; I48.0 Paroxysmal atrial fibrillation; I77.1 Stricture of artery; I70.1 Atherosclerosis of renal artery; I10 Essential (primary) hypertension; R94.31 Abnormal electrocardiogram [ECG] [EKG]; Z79.899 Other long term (current) drug therapy
CPT/HCPCS: 75571; 75574; Q9967

== ENCOUNTER 2024-01-04 11:00 | Day surgery (SDC) | payer MEDICARE, SELFPAY ==
[2024-01-04] VITALS (10 sets, daily range): BP systolic 125–193; BP diastolic 70–109; PULSE 61–78; RESP 16–18; TEMP 36.7; O2SAT 96–100; BMI 24.2
--- NOTE | 2024-01-04 07:17 | IR_ITS ---
APPROVED REPORT Patient Location: Outpatient PROCEDURES Left heart catheterization Left ventriculogram Selective coronary angiogram INDICATION Angina pectoris, Abnormal CCTA, Coronary artery disease Informed consent was obtained prior to the procedure. COMPLICATIONS None Estimated Blood Loss: Less than 10 mls TECHNIQUE One percent lidocaine used to anesthetize the right anterior aspect of the wrist. The right radial artery was accessed via the Seldinger technique. A 6 [place] sheath was placed in the right radial artery. A Poppa catheter would not advance therefore a 25 cm hydrophilic 6 [place] sheath was advanced over a 45 cm dilator in order to pass the radial artery and allow direct catheter placement into the brachial artery. 2.5 mg of Verapamil, 800 mcg of nitroglycerin, 1mg Lidocaine and 5000 U Heparin were given through the arterial sheath. The papa catheter was also used to perform left heart catheterization, left ventriculogram and selective coronary angiogram. At the end of the procedure the sheath was removed good hemostasis was achieved using Traclet band, patient was transferred to the postop holding area in stable condition. ANGIOGRAPHIC RESULTS The left main artery Normal The left anterior descending artery Has proximal smooth 20 to 30% stenosis with a mid vessel smooth 30% stenosis immediately after a large first diagonal artery. The first diagonal artery is widely patent but tortuous The circumflex artery Nondominant but very large large with mild 10% luminal irregularities The right coronary artery Large dominant with 10% luminal regularities The CHILDRESS ventriculogram reveals Normal to slightly hyperdynamic at 70% The left ventricular end-diastolic pressure 15 to 20 mmHg IMPRESSION Mild to moderate coronary disease as described above Hyperdynamic ventricle Mildly elevated LVEDP PLAN 1. Continue medical management Electronically signed by : Cresencio Bennett MD 01/04/2024 13:13:32
[2024-01-04 11:26] LABS: Basophils # 0.1 K/mm3 (0-0.2); Basophils % 0.7 % (0.1-2.0); Eosinophils # 0.1 K/mm3 (0.0-0.4); Hematocrit 37.7 % (37.0-47.0); Hemoglobin 12.1 g/dL (12.2-16.2); Lymphocytes # 1.4 K/mm3 (0.7-4.5); Lymphocytes % 18.9 % (10-50); Mean Corpuscular HGB Conc 32.1 g/dL (31.8-35.4); Mean Corpuscular Hemoglobin 28.4 pg (27.0-31.2); Mean Corpuscular Volume 88.5 fl (81-99); Mean Platelet Volume 9.1 fl (7.4-10.4); Monocytes # 0.6 K/mm3 (0.1-1.0); Monocytes % 7.5 % (1.7-9.3); Neutrophils # 5.3 K/mm3 (1.8-7.8); Neutrophils % 71.8 % (37.0-80.0); Platelet Count 277 K/mm3 (142-424); Red Blood Count 4.26 M/mm3 (4.20-5.40); White Blood Count 7.4 K/mm3 (4.8-10.8)
[2024-01-04 11:28] LABS: Chloride 108 mmol/L (98-107); Potassium 4.1 mmoL/L (3.5-5.1); Sodium 139 mmol/L (136-145)
[2024-01-04 11:31] LABS: Anion Gap 13.1 mEq/L (5-15); Blood Urea Nitrogen 16 mg/dl (7-17); Calcium 9.3 mg/dl (8.4-10.2); Carbon Dioxide 22 mmol/L (22.0-30.0); Creatinine Clearance Estimated 41 mL/min (50-200); Estimated Glomerular Filt Rate 53 ml/min (>60); GFR (African American) 64 ML/MIN (>60); Glucose 100 mg/dl (74-100)
[2024-01-04] MEDS: 0.9 % SODIUM CHLORIDE 500 ML 25 ML IV (12:17)
[2024-01-04] MEDS: HEPARIN 1,000 UNITS/500ML NS (CATH LAB) 3000 UNIT IV (12:17)
[2024-01-04] MEDS: diphenhydrAMINE 50MG/ML VIAL 50 MG IV (12:17)
[2024-01-04] MEDS: NITROGLYCERIN 800MCG/8ML SYR (CATH LAB) 800 MCG IA (12:17)
[2024-01-04] MEDS: VERAPAMIL 2.5MG/ML 2ML VIAL 2.5 MG IV (12:17)
[2024-01-04] MEDS: LIDOCAINE 1% 10ML MDV 20 ML IJ (12:17)
[2024-01-04] MEDS: MIDAZOLAM HCL 1MG/1ML 5ML VIAL 1 MG IV (13:34)
[2024-01-04] MEDS: FENTANYL 100MCG/2ML VIAL 50 MCG IV (13:34)
[2024-01-04] MEDS: IOPAMIDOL-370 (76%);100ML BOTTLE 90 ML IV (14:36)
== END 2024-01-04 15:34 | disposition home or self-care (01) ==
PROVIDERS: PCP Family Medicine; Visit Provider Internal Medicine
DX: R60.9 Edema, unspecified (principal); R93.1 Abnormal findings on diagnostic imaging of heart and coronary circulation; I10 Essential (primary) hypertension; I73.9 Peripheral vascular disease, unspecified; I51.7 Cardiomegaly; I48.0 Paroxysmal atrial fibrillation; I77.1 Stricture of artery; I70.1 Atherosclerosis of renal artery; R94.31 Abnormal electrocardiogram [ECG] [EKG]; Z79.899 Other long term (current) drug therapy; I25.10 Atherosclerotic heart disease of native coronary artery without angina pectoris
CPT/HCPCS: 36415; 80048; 85025; 93458; 99152; C1725; C1769; J1644; Q9967

== ENCOUNTER 2024-01-24 13:44 | Outpatient (CLI) | payer MEDICARE, SELFPAY ==
[2024-01-24 15:23] LABS: Blood Urea Nitrogen 28 mg/dl (7-17); Calcium 9.3 mg/dl (8.4-10.2); Carbon Dioxide 24 mmol/L (22.0-30.0); Chloride 105 mmol/L (98-107); Estimated Glomerular Filt Rate 47 ml/min (>60); GFR (African American) 57 ML/MIN (>60); Glucose 105 mg/dl (74-100); Sodium 139 mmol/L (136-145)
== END 2024-01-24 23:59 | disposition home or self-care (01) ==
LOC: LAB 13:45
PROVIDERS: PCP Family Medicine; Visit Provider Internal Medicine
DX: R60.9 Edema, unspecified (principal); R93.1 Abnormal findings on diagnostic imaging of heart and coronary circulation; I11.9 Hypertensive heart disease without heart failure; I73.9 Peripheral vascular disease, unspecified; R07.89 Other chest pain; I48.0 Paroxysmal atrial fibrillation; R06.09 Other forms of dyspnea; R53.83 Other fatigue; I77.1 Stricture of artery; I70.1 Atherosclerosis of renal artery; R79.89 Other specified abnormal findings of blood chemistry
CPT/HCPCS: 36415; 80048

== ENCOUNTER 2024-05-13 14:11 | Outpatient (CLI) | payer MEDICARE, SELFPAY ==
[2024-05-13 14:55] LABS: Basophils # 0.1 K/mm3 (0-0.2); Basophils % 1.2 % (0.1-2.0); Eosinophils # 0.2 K/mm3 (0.0-0.4); Eosinophils % 2.8 % (0.1-12.0); Hemoglobin 12.7 g/dL (12.2-16.2); Lymphocytes # 1.9 K/mm3 (0.7-4.5); Lymphocytes % 24.4 % (10-50); Mean Corpuscular HGB Conc 31.8 g/dL (31.8-35.4); Mean Corpuscular Hemoglobin 30.1 pg (27.0-31.2); Mean Corpuscular Volume 94.8 fl (81-99); Monocytes # 0.7 K/mm3 (0.1-1.0); Monocytes % 9.1 % (1.7-9.3); Neutrophils # 4.7 K/mm3 (1.8-7.8); Neutrophils % 62.5 % (37.0-80.0); Platelet Count 312 K/mm3 (142-424); Red Blood Count 4.22 M/mm3 (4.20-5.40); Red Cell Distribution Width 16.2 % (11.5-17.5); White Blood Count 7.6 K/mm3 (4.8-10.8)
[2024-05-13 15:19] LABS: Alanine Aminotransferase 32 U/L (12-78); Albumin Level 3.6 g/dl (3.5-5.0); Alkaline Phosphatase 96 U/L (38-126); Anion Gap 9.8 mEq/L (5-15); Aspartate Amino Transferase 32 U/L (14-36); Bilirubin,Direct 0.4 mg/dl (0.0-0.4); Bilirubin,Indirect 0.3 mg/dL (0.0-0.9); Bilirubin,Total 0.7 mg/dl (0.2-1.3); Bilirubin,Unconjugated 0.4 mg/dL (0.0-1.1); Blood Urea Nitrogen 22 mg/dl (7-17); Calcium 9.2 mg/dl (8.4-10.2); Carbon Dioxide 25 mmol/L (22.0-30.0); Chloride 108 mmol/L (98-107); Cholesterol 139 mg/dl (140-200); Estimated Glomerular Filt Rate 47 ml/min (>60); GFR (African American) 57 ML/MIN (>60); Glucose 100 mg/dl (74-100); HDL Cholesterol 46 mg/dl (40-60); Magnesium 1.8 mg/dl (1.6-2.3); Potassium 3.8 mmoL/L (3.5-5.1); Sodium 139 mmol/L (136-145); Total Protein,Serum 7.2 g/dl (6.3-8.2); Triglycerides 126 mg/dl (30-150); VLDL Cholesterol 25 mg/dL (0-40)
[2024-05-13 15:31] LABS: Direct LDL Cholesterol 62.59 mg/dL (100-129)
[2024-05-13 15:36] LABS: Free T4 (Free Thyroxine) 2.29 ng/dl (0.78-2.19)
[2024-05-13 15:50] LABS: Thyroid Stimulating Hormone 2.06 uIU/mL (0.465-4.68)
== END 2024-05-13 23:59 | disposition home or self-care (01) ==
LOC: LAB 14:12
PROVIDERS: PCP Family Medicine; Visit Provider Internal Medicine
DX: I10 Essential (primary) hypertension (principal); I73.9 Peripheral vascular disease, unspecified; I51.7 Cardiomegaly; R79.89 Other specified abnormal findings of blood chemistry; I48.0 Paroxysmal atrial fibrillation; I77.1 Stricture of artery; I70.1 Atherosclerosis of renal artery; R94.31 Abnormal electrocardiogram [ECG] [EKG]
CPT/HCPCS: 80048; 80061; 80076; 83735; 84439; 84443; 85025

== ENCOUNTER 2024-05-20 14:00 | Outpatient (CLI) | payer MEDICARE, SELFPAY ==
--- NOTE | 2024-05-20 14:01 | MR_ITS ---
FINAL REPORT CLINICAL HISTORY: eval for occipital CVA pt has been having hallucinations, seeing things that aren't there for approx 3 months COMPARISON: None FINDINGS: Multiplanar MR imaging of the brain was performed without and with contrast. There is abnormal signal in the periventricular and subcortical white matter, without evidence of restricted diffusion to suggest acute intracranial abnormality. There is no evidence of intracranial hemorrhage or mass. No abnormal extra-axial fluid collection is seen. The ventricular size is within normal limits. There is no evidence of shift of the midline structures. The posterior fossa and brainstem have an unremarkable appearance. No abnormal contrast enhancement is seen. Normal major vessel vascular flow voids are noted. IMPRESSION: Abnormal signal in the periventricular and subcortical white matter without evidence of enhancement or restricted diffusion, most consistent with chronic ischemic/gliotic microvascular change. No acute intracranial abnormality identified. Reviewed, Interpreted and Dictated by Jagdish Justin MD Transcribed by Traci Schmitt Authenticated and [facility]
[2024-05-20] MEDS: SODIUM CHLORIDE 0.9% 10ML SYR (RAD ONLY) 10 ML IV (14:35)
[2024-05-20] MEDS: GADOTERIDOL INJ 20ML SYRINGE 13 ML IV (14:35)
== END 2024-05-20 23:59 | disposition home or self-care (01) ==
PROVIDERS: PCP Family Medicine; Visit Provider Family Medicine
DX: R44.3 Hallucinations, unspecified (principal); H53.9 Unspecified visual disturbance
CPT/HCPCS: 70553; A9576

== ENCOUNTER 2024-10-24 13:00 | Outpatient (CLI) | payer MEDICARE, SELFPAY | END 2024-10-24 23:59 | disposition home or self-care (01) | LOC: LAB.DROPOF 10-25 11:48 | PROVIDERS: PCP Family Medicine; Visit Provider Family Medicine | DX: R30.0 Dysuria (principal) | CPT/HCPCS: 87086; 87088; 87186 ==

== ENCOUNTER 2024-11-18 13:26 | Outpatient (CLI) | payer MEDICARE, SELFPAY ==
--- NOTE | 2024-11-18 13:46 | XR_ITS ---
FINAL REPORT CLINICAL HISTORY: on amiodarone denies any chest complaints FINDINGS: 2 views of the chest were obtained . The heart is at the upper limits of normal in size. The mediastinum is within normal limits. The lungs are clear. There is no pneumothorax. Osseous structures are unremarkable. Surgical clips are noted in the right axilla. IMPRESSION: No acute cardiopulmonary process. Reviewed, Interpreted and Dictated by Jagdish Justin MD Transcribed by Martha Kauffman Authenticated and [facility]
[2024-11-18 14:09] LABS: Basophils # 0.1 K/mm3 (0-0.2); Basophils % 0.9 % (0.1-2.0); Eosinophils # 0.1 K/mm3 (0.0-0.4); Eosinophils % 1.2 % (0.1-12.0); Hematocrit 38.2 % (37.0-47.0); Hemoglobin 12.2 g/dL (12.2-16.2); Lymphocytes % 25.9 % (10-50); Mean Corpuscular HGB Conc 31.9 g/dL (31.8-35.4); Mean Platelet Volume 11.1 fl (7.4-10.4); Monocytes # 0.7 K/mm3 (0.1-1.0); Monocytes % 9.7 % (1.7-9.3); Neutrophils # 4.7 K/mm3 (1.8-7.8); Nucleated Red Blood Cells # 0 10^3/uL; Nucleated Red Blood Cells % 0 %; Platelet Count 340 K/mm3 (142-424); Red Cell Distribution Width 16.5 % (11.5-17.5); Red Cell Distribution Width-SD 54.8 fL; White Blood Count 7.6 K/mm3 (4.8-10.8)
[2024-11-18 14:53] LABS: Albumin Level 3.7 g/dl (3.5-5.0); Chloride 106 mmol/L (98-107); Sodium 140 mmol/L (136-145)
[2024-11-18 14:54] LABS: Potassium 4.4 mmoL/L (3.5-5.1)
[2024-11-18 14:56] LABS: Alanine Aminotransferase 25 U/L (12-78); Anion Gap 12.4 mEq/L (5-15); Aspartate Amino Transferase 30 U/L (14-36); Bilirubin,Unconjugated 0.6 mg/dL (0.0-1.1); Blood Urea Nitrogen 18 mg/dl (7-17); Carbon Dioxide 26 mmol/L (22.0-30.0); Estimated Glomerular Filt Rate 52 ml/min (>60); GFR (African American) 63 ML/MIN (>60); Total Protein,Serum 7.6 g/dl (6.3-8.2)
[2024-11-18 14:57] LABS: Alkaline Phosphatase 102 U/L (38-126); Bilirubin,Indirect 0.6 mg/dL (0.0-0.9); Bilirubin,Total 0.6 mg/dl (0.2-1.3); Calcium 9.1 mg/dl (8.4-10.2); Cholesterol 119 mg/dl (140-200); Glucose 99 mg/dl (74-100); Triglycerides 90 mg/dl (30-150); VLDL Cholesterol 18 mg/dL (0-40)
[2024-11-18 15:08] LABS: Direct LDL Cholesterol 49.22 mg/dL (100-129)
[2024-11-18 15:27] LABS: Thyroid Stimulating Hormone 2.88 uIU/mL (0.465-4.68)
[2024-11-18 19:37] LABS: Chol/HDL Ratio 2.5 (1-3.5); HDL Cholesterol 47 mg/dl (40-60)
== END 2024-11-18 23:59 | disposition home or self-care (01) ==
LOC: LAB 13:27
PROVIDERS: PCP Family Medicine; Visit Provider Internal Medicine
DX: I73.9 Peripheral vascular disease, unspecified (principal); I10 Essential (primary) hypertension; I48.0 Paroxysmal atrial fibrillation; I77.4 Celiac artery compression syndrome; I70.1 Atherosclerosis of renal artery; Z79.899 Other long term (current) drug therapy
CPT/HCPCS: 36415; 71046; 80048; 80061; 80076; 83735; 84439; 84443; 85025

== ENCOUNTER 2025-05-06 13:48 | Outpatient (CLI) | payer MEDICARE, SELFPAY ==
--- OUTSIDE RECORDS SUMMARY | 2025-05-06 13:51 | XMS_ITS | Clinical Summary ---
Author Organization [facility] Address [address] [place] [address] Care Team Providers Care Contract Paralegal Name Role Phone Alli Negrete MD Primary Care Provider [phone] Allergies Active Allergy Reactions Criticality Noted Date Comments Penicillins Rash Low 04/17/2018 Sulfa Antibiotics Unknown - Low Severity Low 2017 UNKNOWN Medications cyanocobalamin 1000 MCG/ML injection Inject 1 mL into the appropriate muscle as directed by prescriber Every 14 (Fourteen) Days. 8 Active fexofenadine (VIDAL) 180 MG tablet Take 1 tablet by mouth Daily. Active Probiotic Product (PROBIOTIC-10 PO) Take by mouth. Activ e atorvastatin (LIPITOR) 40 MG tablet Take 1 tablet by mouth Daily. 3 Active clopidogrel (PLAVIX) 75 MG tablet Take 1 tablet by mouth Daily. 3 Active metoprolol succinate XL (TOPROL-XL) 50 MG 24 hr tablet Take 1 tablet by mouth Daily. 3 Active Xarelto 20 MG tablet Take 1 tablet by mouth Daily With Dinner. 3 Active Entresto 24-26 MG tablet Take 1 tablet by mouth 2 (Two) Times a Day. 3 Active amiodarone (PACERONE) 200 MG tablet TAKE 1 TABLET BY MOUTH DAILY. 30 tablet 2 4 Active Immunizations Immunization Administration Dates Next Due 31-influenza Vac Quardvalent Preservativ 018 Fluzone (or Fluarix & Flulaval for VFC) >6mos ,05/14/2019 Fluzone High-Dose 65+YRS 07/19/2017 Fluzone High-Dose 65+yrs 05/11/2020 Hepatitis A 06/25/2019,10/09/2018 Pneumococcal Polysaccharide (PPSV23) 04/21/2020 Zostavax 07/17/2009 Family History Medical History Relation Name Comments ALS Brother Heart attack Father Heart failure Mother Stomach cancer Sister 1 Brain cancer Son Relation Name Status Comments Brother Father Mother Sister 1 Sister 2 Son Social History Tobacco Use Types Packs/Day Years Used Date Smoking Tobacco: Never Passive Smoke Exposure: Never Smokeless Tobacco: Never Tobacco Cessation:Counseling Given: Not Answered Alcohol Use Standard Drinks/Week Comments Never 0 (1 standard drink = 0.6 oz pur e alcohol) Abuse Screen Answer Date Recorded Unsafe at Home or Work/School Not on file Feels Threatened by Someone? Not on file 04/2023 Does Anyone Keep You from Co ntacting Others or Doint Things Outside the Home? Not on file 05/15/2023 Physical Sign of Abuse Present Not on file 1 Housing Stability Answer Date Recorded Current Living Arrangements Not on file 04/2023 Potentially Unsafe Housing Conditions Not on vanessa e 05/15/2023 Family and Community Support Answer Den e Recorded Help with Day-to-Day Activities Not on file 05/15/2023 Lonely or Isolated Not on file 05/15/2023 Employment Answer Date Recorded Do you want help finding or keeping work or a octavio b? Not on file 05/15/2023 Disabilities Answer Date Recorded Concentrating, Remembering, or Making Decisions Difficulty Not on file 05/15/2023 Doing Errands Independently Difficulty Not on fi le 05/15/2023 Education Answer Date Recorded Help with school or training? Not on file Preferred Language Not on file 05/15/2023 Comments Unknown Sex and Gender Information Value Date Recorded Sex Assigned at Not on file Legal Sex Female 10:13 AM EDT Gender Identity Not on file Sexual Orientation Not on file Last Filed Vital Signs Vital Sign Reading Time Taken Comments Blood Pressure 144/76 03/14/2023 12:58 PM EDT Pulse 78 03/14/2023 12:58 PM EDT Temperature 36.7 C (98 F) 04/17/2018 2:32 PM EDT Respiratory Rate 20 03/14/2023 12:58 PM EDT Oxygen Saturation 97% 03/14/2023 12:58 PM EDT Inhaled Oxygen Concentration - - Weight 63.5 kg (140 lb) 03/14/2023 12:58 PM EDT Height 162.6 cm (5' 4 ) 03/14/2023 12:58 PM EDT Body Mass Index 24.03 03/14/2023 12:58 PM EDT Plan of Treatment Health Maintenance Due Date Last Done Comments DXA SCAN 1937 TDAP/TD VACCINES (1 - Tdap) 1956 ZOSTER VACCINE (2 of 3) 09/11/2009 07/17/2009 RSV Vaccine - Adults (1 - 1- dose 75+ series) 2012 ANNUAL WELLNESS VISIT 04/17/2018 Pneumococcal Vaccine 50+ (2 of 2 - PCV) 04/21/2021 04/21/2020 INFLUENZA VACCINE 03/07/2025 07/09/2021, , 05/14/2019, Additional history exists COVID-19 Vaccine (5 - 2024-2 6 season) 2025 08/17/2022, 12/08/2021, 10/16/2020, Additional history exists Insurance [address] [address] MEDICARE ADVANTAGE PPO Care Teams Contract Paralegal Relationship Specialty Start Date End Date Alli Negrete MD [address] [place], [place] [id number] PCP - General Family Medicine 03/30/16
--- OUTSIDE RECORDS SUMMARY | 2025-05-06 13:51 | XMS_ITS | Clinical Summary ---
Author Organization [facility] Address [address] [id number] Care Team Providers Care Security Patrol Driver Name Role Phone Alli Negrete MD Primary Care Provider [phone] Social History Tobacco Use Types Packs/Day Years Used Date Smoking Tobacco: Never Assessed Comments Unknown Sex and Gender Information Value Date Recorded Sex Assigned at Not on file Legal Sex Female 7:41 PM EDT Gender Identity Not on file Sexual Orientation Not on file Last Filed Vital Signs Vital Sign Reading Time Taken Comments Blood Pressure 170/76 12/26/2022 11:41 AM EDT Pulse 73 12/26/2022 11:41 AM EDT Temperature - - Respiratory Rate - - Oxygen Saturation - - Inhaled Oxygen Concentration - - Weight 61.7 kg (136 lb) 12/26/2022 11:41 AM EDT Height 162.6 cm (5' 4 ) 12/26/2022 11:41 AM EDT Body Mass Index 23.34 12/26/2022 11:41 AM EDT Plan of Treatment Health Maintenance Due Date Last Done Comments UKY-Bone Density Scan 1937 UKY-Depression Screening 1937 UKY-Medicare Annual Wellness (AWV) 1937 UKY-/Child/Adol SDOH Screenings 1937 UKY- SDOH Screenings 1955 UKY-Adult SDOH Screenings 1955 UKY-DTaP,Tdap,and Td Vaccines (1 - Tdap) 1956 UKY-Zoster Vaccines (2 of 3) 09/11/2009 07/17/2009 UKY-RSV Vaccine: 60+ Years or (1 - 1-dose 75+ series) 2012 UKY-Pneumococcal Vaccine: 50+ Years (2 of 2 - PCV) 04/21/2021 04/21/2020 [id number] Vaccine (6 - 2025-26 season) 2025 06/03/2023, 08/17/2022, 12/08/2021, Additional history exists UKY-Influenza Vaccine (#1) 04/07/202507/09, 05/11/2020, 05/14/2019, Additional history exists UKY-Hepatitis A Vaccines Aged Out 06/25/2019, 12/2018 No longer eligible based on patient's age to complete this topic HPV Vaccines Aged Out No longer eligi ble based on patient's age to complete this topic UKY-HIB Vaccines Aged Out No longer e ligible based on patient's age to complete this topic UKY-IPV Vaccines Aged Out No longer e ligible based on patient's age to complete this topic UKY-Rotavirus Vaccines Aged Out No lo nger eligible based on patient's age to complete this topic Insurance MEDICARE Care Teams Security Patrol Driver Relationship Specialty Start Date End Date Alli Negrete MD PCP - General 12/18/20
--- OUTSIDE RECORDS SUMMARY | 2025-05-06 13:52 | XMS_ITS | Clinical Summary ---
Author Organization [facility] Address [address] [place] [address] Phone Care Team Providers Care Payroll Accounting Clerk Name Role Phone Alli Negrete MD Primary Care Provider [phone] Jai Sena MD Unavailable [phone] Allergies Active Allergy Reactions Criticality Noted Date Comments Penicillins Rash 07/16/2014 Sulfa (Sulfonamide Antibiotics) 07/07 Medications metoprolol (LOPRESSOR) 25 mg Oral Tablet Take 50 mg in the AM and 50 mg in the PM. Active Active Problems Problem Noted Date Diagnosed Date ERRONEOUS ENCOUNTER--DISREGARD 10/31/2014 Surgical History Surgery Date Site/Laterality Comments GALLBLADDER SURGERY Medical History Medical History Date Comments Hypertension Cancer of breast (HCC) Family History Medical History Relation Name Comments Heart Attack Father Heart Surgery Mother Anemia Sister Relation Name Status Comments Father Mother Sister Alive Social History Tobacco Use Types Packs/Day Years Used Date Smoking Tobacco: Never Alcohol Use Standard Drinks/Week Comments No 0 (1 standard drink = 0.6 oz pur e alcohol) Comments Unknown Sex and Gender Information Value Date Recorded Sex Assigned at Not on file Legal Sex Female 7:57 AM EDT Gender Identity Not on file Sexual Orientation Not on file Last Filed Vital Signs Vital Sign Reading Time Taken Comments Blood Pressure 166/76 08/27/2014 11:30 AM EST Pulse 72 08/27/2014 11:30 AM EST Temperature - - Respiratory Rate - - Oxygen Saturation - - Inhaled Oxygen Concentration - - Weight 68.9 kg (151 lb 12.8 oz) 015 11:30 AM EST Height 165.1 cm (5' 5 ) 08/27/2014 11:3 0 AM EST Body Mass Index 25.26 08/27/2014 11:30 AM EST Plan of Treatment Health Maintenance Due Date Last Done Comments Wellness Exam Medicare 1938 DTaP/TDaP/Td (1 - Tdap) 1956 Bone Density Screening 2002 Zoster (2 of 3) 09/11/2009 07/17/2009 RSV or 60+ (1 - 1-dose 75+ series) 2012 Pneumococcal Vaccine 50+ (2 of 2 - PCV) 04/21/2021 04/21/2020 COVID-19 Vaccine ( season) 2025 06/03/2023, 08/17/2022, 12/08/2021, Additional history exists Influenza Vaccine (#1) 2025 , 05/11/2020, 05/14/2019, Additional history exists Hepatitis B Vaccine Aged Out No longe r eligible based on patient's age to complete this topic Meningococcal B Vaccine Aged Out No l onger eligible based on patient's age to complete this topic Insurance [employer] MEDICARE PPO MR [employer] MEDICARE PPO MR Care Teams Payroll Accounting Clerk Relationship Specialty Start Date End Date Alli Negrete MD PCP - General Family Medicine 07/16/14 Jai Sena MD [address] [place] [address] Physician Internal Medicine-Interventional Cardiology 08/14/14
[2025-05-06 14:58] LABS: Hematocrit 39.0 % (37.0-47.0); Hemoglobin 12.2 g/dL (12.2-16.2); Immature Granulocytes % 0.4 %; Mean Corpuscular HGB Conc 31.3 g/dL (31.8-35.4); Mean Corpuscular Hemoglobin 27.9 pg (27.0-31.2); Mean Corpuscular Volume 89.2 fl (81-99); Nucleated Red Blood Cells % 0 %; Platelet Count 372 K/mm3 (142-424); Red Blood Count 4.37 M/mm3 (4.20-5.40); Red Cell Distribution Width-SD 58.5 fL; White Blood Count 7.9 K/mm3 (4.8-10.8)
[2025-05-06 15:21] LABS: Alanine Aminotransferase 26 U/L (12-78); Albumin Level 3.6 g/dl (3.5-5.0); Alkaline Phosphatase 149 U/L (38-126); Anion Gap 12.9 mEq/L (5-15); Aspartate Amino Transferase 27 U/L (14-36); Bilirubin,Direct 0.3 mg/dl (0.0-0.4); Bilirubin,Indirect 0.4 mg/dL (0.0-0.9); Bilirubin,Total 0.7 mg/dl (0.2-1.3); Bilirubin,Unconjugated 0.4 mg/dL (0.0-1.1); Blood Urea Nitrogen 20 mg/dl (7-17); Calcium 8.8 mg/dl (8.4-10.2); Carbon Dioxide 25 mmol/L (22.0-30.0); Chloride 106 mmol/L (98-107); Cholesterol 128 mg/dl (140-200); Creatinine,Serum 1.00 mg/dl (0.52-1.04); Estimated Glomerular Filt Rate 52 ml/min (>60); GFR (African American) 63 ML/MIN (>60); Glucose 116 mg/dl (74-100); HDL Cholesterol 51 mg/dl (40-60); Magnesium 2.1 mg/dl (1.6-2.3); Potassium 3.9 mmoL/L (3.5-5.1); Sodium 140 mmol/L (136-145); Total Protein,Serum 7.1 g/dl (6.3-8.2); Triglycerides 99 mg/dl (30-150)
[2025-05-06 15:37] LABS: Free T4 (Free Thyroxine) 2.24 ng/dl (0.78-2.19)
[2025-05-06 15:53] LABS: Thyroid Stimulating Hormone 2.69 uIU/mL (0.465-4.68)
[2025-05-06 16:39] LABS: Iron 52 ug/dL (37-170)
[2025-05-06 16:48] LABS: Total Iron Binding Capacity 401 ug/dL (265-497)
== END 2025-05-06 23:59 | disposition home or self-care (01) ==
LOC: LAB 13:49
PROVIDERS: PCP Family Medicine; Visit Provider Internal Medicine
DX: I48.0 Paroxysmal atrial fibrillation (principal); I10 Essential (primary) hypertension; R55 Syncope and collapse
CPT/HCPCS: 36415; 80048; 80061; 80076; 83540; 83550; 83735; 84439; 84443; 85025; 93225; 93227

== ENCOUNTER 2025-05-08 13:41 | Outpatient (CLI) | payer MEDICARE, SELFPAY ==
--- OUTSIDE RECORDS SUMMARY | 2025-05-08 13:43 | XMS_ITS | Clinical Summary ---
Author Organization [facility] Address [address] [place] [address] Care Team Providers Care Thermoforming Machine Operator Name Role Phone Alli Negrete MD Primary Care Provider [phone] Allergies Active Allergy Reactions Criticality Noted Date [...] 08/17/2022, 12/08/2021, 10/16/2020, Additional history [place] [address] [address] [place] [address] MEDICARE ADVANTAGE PPO Care Teams Thermoforming Machine Operator Relationship Specialty Start Date End Date Alli Negrete MD [address] [place], [place] [id number] PCP - General Family Medicine 03/30/16
--- OUTSIDE RECORDS SUMMARY | 2025-05-08 13:44 | XMS_ITS | Clinical Summary ---
Author Organization [facility] Address [address] [id number] Care Team Providers Care Paper Coating Machine Operator Name Role Phone Alli Negrete MD Primary Care Provider [phone] Social History Tobacco Use Types Packs/Day Years [...] Screening 1935 [facility]Y-Medicare Annual Wellness (AWV) 1937 UKY-Infant/Child/Adol SDOH Screenings 1937 UKY- SDOH Screenings 1955 UKY-Adult SDOH Screenings 1955 UKY-DTaP,Tdap,and Td Vaccines (1 - Tdap) 1956 UKY-Zoster Vaccines (2 of 3) 09/11/2009 07/17/2009 UKY-RSV Vaccine: 60+ Years or (1 - 1-dose 75+ series) 2012 UKY-Pneumococcal Vaccine: 50+ Years (2 of 2 - PCV) 04/21/2021 04/21/2020 [id number] Vaccine (6 - 2025-26 season) 2025 06/03/2023, [...] complete this topic Insurance MEDICARE Care Teams Paper Coating Machine Operator Relationship Specialty Start Date End Date Alli Negrete MD PCP - General 12/18/20
--- OUTSIDE RECORDS SUMMARY | 2025-05-08 13:44 | XMS_ITS | Clinical Summary ---
Author Organization [facility] Address [address] [place] [address] Phone Care Team Providers Care Front Office Manager Name Role Phone Alli Negrete MD Primary Care Provider [phone] Jai Sena MD Unavailable [phone] Allergies Active Allergy Reactions Criticality Noted [...] patient's age to complete this topic Insurance [employer] MEDICARE PPO MR [employer] MEDICARE PPO MR Care Teams Front Office Manager Relationship Specialty Start Date End Date Alli Negrete MD PCP - General Family Medicine 07/16/14 Jai Sena MD [address] [place] [address] Physician Internal Medicine-Interventional Cardiology 08/14/14
== END 2025-05-08 23:59 | disposition home or self-care (01) ==
LOC: RT 13:42
PROVIDERS: PCP Family Medicine; Visit Provider Internal Medicine
DX: I49.1 Atrial premature depolarization (principal); I49.3 Ventricular premature depolarization; I48.0 Paroxysmal atrial fibrillation; I10 Essential (primary) hypertension; R55 Syncope and collapse
CPT/HCPCS: 93270

== ENCOUNTER 2025-05-21 07:47 | Outpatient (CLI) | payer MEDICARE, SELFPAY ==
--- NOTE | 2025-05-21 | CA_ITS ---
APPROVED REPORT Exam: Pharmacologic Technologist: Karly Hearn Stress Nurse: CORDELL Dumont, RN Ht: 5 ft 4 in Wt: 138 lbs BSA: 1.67 m2 HR: 53 bpm BP: 187/77 mmHg Indications: Chest pain, dyspnea Stress Test Details Test: Lexiscan HR Resting HR: 53 bpm Max Heart Rate (APMHR): 132 bpm Max HR Achieved: 68 bpm Target HR (85% APMHR): 112 bpm % of APMHR: 52 Recovery HR: 60 bpm BP Resting BP: 187.0/77.0 mmHg Max BP: 162.0/70.0 mmHg Recovery BP: 162.0/70.0 mmHg ECG Resting ECG: Sinus rhythm Arrhythmia: PACs Stress ECG Conclusion Lungs clear to auscultation prior to administration of Lexiscan. Symptoms: None Arrhythmias/Ectopy: PAC ST-T Changes: Less than 0.[address] segment changes. Conclusion: Nondiagnostic ECG/Lexiscan. Electronically signed by : Angelica Crook MD 05/21/2025 12:36:43
--- OUTSIDE RECORDS SUMMARY | 2025-05-21 07:50 | XMS_ITS | Clinical Summary ---
Author Organization [facility] Address [address] [id number] Care Team Providers Care Pole Peeling Machine Operator Helper Name Role Phone Alli Negrete MD Primary Care Provider [phone] Social History Tobacco Use Types Packs/Day Years [...] (2 of 2 - PCV) 04/21/2021 04/21/2020 [id number] Vaccine (6 - 2025-26 season) 2025 06/03/2023, [...] complete this topic Insurance MEDICARE Care Teams Pole Peeling Machine Operator Helper Relationship Specialty Start Date End Date Alli Negrete MD PCP - General 12/18/20
--- OUTSIDE RECORDS SUMMARY | 2025-05-21 07:50 | XMS_ITS | Data Portability ---
Author Organization [facility] Address [address] [place] [address] Assessment No assessment recorded. Plan of Treatment Reminders Order Date Submit Date Provider Last Modified By Organization Details Last Modified Time Details Appointments FOLLOW UP DAK 2025 11:00A M ABI FRIEDMAN PA-C Not available Not available Not available Lab surgical pathology study 2024 025 [facility], [address] [place] [address], [id number], 11/01/2024 15:06:36 Referral None recorded. Procedures None recorded. Surgeries None recorded. Imaging None recorded. Medication Orders fluoroura cil 5 % topical cream 2024 025 [place] [address] [facility], [address] [place] [address], [address], 10/31/2024 16:57:11 hydrocort isone 2.5 % topical ointment 2024 025 [place] [address] [facility], [address] [place] [address], [id number], 10/31/2024 16:57:11 Patient TargetsNo targets recorded. Patient InstructionsNo instructions recorded. Reason for Referral None Reported. Results Created Date Observation Date Name Description Value Unit Range Abnormal Flag Note LastModifiedBy Organization Detail LastModifiedTime 11/01/1910/31/2024 SURGI JOB surgical SEE BELOW [place] topat holog y Repor t NAME: AMELIA BENDER PATH: [id number] PROCE DURE DATE: 10/31 SIGNO UT DATE: 11/01 Copy to: Diagn osis: Left jawli ne- SEBOR RHEIC KERAT OSIS SOURC E OF SPECI MEN: SKIN, L Jawli ne CLINI JOB INFOR MATIO N: r/o SK vs SCC Gross Descr iptio n: The speci men consi sted of a singl e schaeffer tissu e fragm ent which measu red 12 x 9 x 6 mm. Speci men is seria lly secti oned (x4). All is submi tted in one casse tte. Micro scopi c Descr iptio n: The epide rmis is acant hotic and hyper kerat otic. TELLO THOMPSON MD Denisse d Out Date: 11/01 11:43 1 Not Available [facility] [address] [place], [address], 11/01/2024 15:06:36 Result Notes None recorded. Procedures Surgical History Date Name Laterality Status Provider Name and Address Organization Details Recorded Time 10/31/2024 DAK - Cryo AK completed [facility] 10/31/2024 14:45:04 10/31/2024 Blade Biopsy completed [facility] 10/31/2024 14:45:57 Imaging Results None recorded. Procedure Notes None recorded. Medical Equipment None Reported. Allergies Allergen ID Allergen Name Allergen Category Reaction Reaction Severity Criticality Documentation Date Start Date Code Code System Note Provider Name and Address Organization Details Recorded Time 081002 Product containin g penicilli n (product) medicatio n Not available Not available Not available 10/31/2024 96808 8001 SNOMED Tammy Curtis [facility] 14:15:02 232288 Substance with sulfonami de structure and antibacte rial mechanism of action (substanc e) medicatio n Not available Not available Not available 10/31/2024 06178 8003 SNOMED Tammy Curtis [facility] 14:15:08 Medications Name Sig Start Date Stop Date Status Note LastModified by Organization Details LastModified Time fluorouracil 5 % topical cream APPLY A SUFFICIENT AMOUNT TO COVER THE LESIONS IN THE AFFECTED AREA (NOSE AND UPPER LIP) BY TOPICAL ROUTE 2 TIMES PER DAY FOR 14 DAYS 2024 active Not Available Not Available Not Avai lable hydrocortiso ne 2.5 % topical ointment APPLY A THIN LAYER TO THE AFFECTED AREA(S) BY TOPICAL ROUTE 2 TIMES PER DAY FOR 3-7 DAYS AFTER COMPLETING FLUOROURACI L CREAM 2024 active Not Available Not Available Not Avai lable atorvastatin active Not Available Not Available Not Available amiodarone active Not Available Not Av ailable Not Available clopidogrel active Not Available Not A vailable Not Available nifedipine active Not Available Not Av ailable Not Available metoprolol succinate active Not Available Not Available No t Available Eri active Not Available Not Avail able Not Available nitrofuranto in active Not Available Not Available Not Available Probiotic active Not Available Not Angie ilable Not Available Eliquis active Not Available Not Avail able Not Available Vitals None Recorded Social History Question Answer Notes LastModified by Organizat ion Details LastModified Time What Was The Date Of Your Most Recent Tobacco Screening? 10/31/2024 [email or web address] Information not available 10/31/2024 Sex: Female Functional Status None recorded. Mental Status None recorded. Family History Relationship Description Onset Age of this Age Resolved Age Notes LastModified by Organization Details LastModified Time Mother Malignant neoplasm of skin [email or web address] Not available 2024 14:17:25 Medical History Condition Response Varicose Veins N Autoimmune disease N Skin Problems N Squamous Cell Carcinoma N Basal Cell Carcinoma N Skin Cancer N Eczema N Melanoma N Other Skin Condition N Acne N Gynecological HistoryNo gynecological history recorded. Obstetrics History GPAL:G 0 P 0 0 0 0 Past Encounters Encounter ID Performer Location Encounter Start Date Encounter Closed Date Diagnosis/Indication Diagnosis SNOMED-CT Code Diagnosis ICD10 Code Diagnosis IMO Codes Diagnosis Note [id number] ABI FRIEDMAN PA-C [address] [address] 10/31/2024 13:35:53 10/31/2024 14:54:30 Multiple benign melanocytic nevi 935548529 D22.5 L81.4 L82.1 D18.01 Benign appearing lesions.Re assurance given.Sun protection discussed. Look for physical lachelle sunscreens with at least SPF 30 containing zinc oxide or titanium dioxide as active ingredient .Recommend monthly self examinatio ns and yearly full skin examinatio n with a dermatolog y provider.P atient instructed to call with any concerns or changing lesions. History of malignant neoplasm of skin 643512752 Z85.828 SCC (2018)Scar (s) clear with no evidence of recurrence today.Cont inue to monitor for any changes. Actinic keratosis 007 L57.0 The nature of the diagnosis was explained. Pre-cancer ous.x2 Treated with LN2. Healing process discussed. Pt wanting treatment for nose and upper lip flaking:Rx sent for fluorourac il. SE reviewed.R x sent for hydrocorti sone ointment. SE reviewed.5 FU handout given.Pt to call with any concerns or if lesion(s) persist. Neoplasm o f uncertain behavior of skin 56106362 D48.5 The etiology of lesion(s) discussed. x1 Biopsy recommende d and completed today.1) 1.2cm verrucoid, hyperkerat otic plaque- L jaw line r/o SK vs SCCHealing process and wound care discussed. Will call pt with results or post to portal if benign. Health Concerns Section Related Observation LastModified by Organization Detai ls LastModified Time None Recorded Concern Status LastModified by Organization Details LastModified Time None Recorded Advance Directives Directive None Recorded Payers Insurance Date Sequence Insurance Name Policy Number Policy Wood Covered Member ID Wood Member ID Guarantor Name 11/05/2024 1 [employer] (MEDICARE REPLACEMENT/ ADVANTAGE - PPO) Amelia Sidhu [id number] Amelia Sidhu Notes Date Note Type Note Provider Name and Address Organization Details Recorded Time 10/31/2024 text/html ROS as noted in the HPI Here for a full body skin examination - last skin check: 09/2022- history of skin cancer - SCC- last skin cancer was in 2018- spots of concern today: face, both arms ABI FRIEDMAN PA-C [address] [place], [address], [facility] 10/31/2024 17:11:06 OBGyn Episode No OBEpisode recorded.
--- OUTSIDE RECORDS SUMMARY | 2025-05-21 07:50 | XMS_ITS | Clinical Summary ---
Author Organization [facility] Address [address] [place] [address] Care Team Providers Care Editorial Writer Name Role Phone Alli Negrete MD Primary Care Provider [phone] Allergies Active Allergy Reactions Criticality Noted Date [...] 08/17/2022, 12/08/2021, 10/16/2020, Additional history exists [place] [address] [place] [address] MEDICARE ADVANTAGE PPO Care Teams Editorial Writer Relationship Specialty Start Date End Date Alli Negrete MD [address] [place], [place] [phone] PCP - General Family Medicine 03/30/16
--- OUTSIDE RECORDS SUMMARY | 2025-05-21 07:50 | XMS_ITS | Clinical Summary ---
Author Organization [facility] Address [address] [place] [address] Phone Care Team Providers Care Typewriter Ribbon Winder Name Role Phone Alli Negrete MD Primary Care Provider Jai Sena MD Unavailable [phone] Allergies Active Allergy Reactions Criticality Noted [...] patient's age to complete this topic Insurance [employer] MEDICARE PPO MR [employer] MEDICARE PPO MR Care Teams Typewriter Ribbon Winder Relationship Specialty Start Date End Date Alli Negrete MD PCP - General Family Medicine 07/16/14 Jai Sena MD [address] [place] [address] Physician Internal Medicine-Interventional Cardiology 08/14/14
--- NOTE | 2025-05-21 08:00 | NM_ITS ---
APPROVED REPORT Exam: Nuclear Stress Test Indication: CAD, HTN, Family history, Chest pain, SOB, Syncope, Fatigue Patient Location: Outpatient Stress Tech: Karly Hearn NM Tech:Mary Grace Waggoner, ARRT, RT (R)(N) Ht: 5 ft 4 in Wt: 130 lbs Bra Size: 38B HR: 54 bpm BP: 187/77 mmHg BSA: 1.63 m2 TID: 1.02 BMI: 22.3 History: CAD, HTN, Family history, Chest pain, SOB, Syncope, Fatigue Procedure: Patient received 0.4 mg of intravenous Lexiscan, resting heart rate 54 bpm, resting blood pressure 187/77 mmHg, with Lexiscan maximum heart rate achieved was 68 bpm which is % of the maximum predicted heart rate and blood pressure was 162/70 mmHg. With Lexiscan, patient denied any complaint of chest pain. Cardiac Stress and Resting SPECT Images: Cardiac Stress and Resting SPECT images were obtained using technetium 99m Myoview 32.6 mCi stress and 10.71 mCi at rest. Resting and stress imaging in supine and prone positions demonstrate no evidence of fixed or reversible perfusion defects. Gated imaging demonstrates normal global and regional LV systolic function. LVEF is calculated at 67%. Conclusion: No evidence of fixed or reversible perfusion defects. Gated imaging demonstrates normal global and regional LV systolic function. LVEF is calculated at 67%. Electronically signed by : Angelica Crook MD 05/21/2025 21:21:32
[2025-05-21 08:50] VITALS: BP 187/77; PULSE 53; RESP 14
[2025-05-21] MEDS: ISOTOPE MYOVIEW (PER STUDY) 1 DOSE IV (09:07)
[2025-05-21] MEDS: SODIUM CHLORIDE 0.9% 10ML SYR (RAD ONLY) 10 ML IV ×2 (09:07)
--- NOTE | 2025-05-21 10:30 | CA_ITS ---
APPROVED REPORT EXAM: Comprehensive 2D, Doppler, and color-flow Echocardiogram Machine Repairer Maintenance: Tiara Garner RT(R) Ht: 5 ft 4 in Wt: 138lbs BSA: 1.67 BP: 175/72 mmHg Indications: chest pain, AFIB, renal artery stenosis, CAD (1 cardiac stent) 2D Dimensions Left Atrium 3.16 cm F: 2.7 - 3.8 LVEF (Ordaz's) 62.00 % F: 54 - 74 LVOT 1.86 cm (M/F) 1.5-2.5 LV Volume 83.10 mL F: 46 - 106 LV Volume Index 49.8 mL/m2 F: 29 - 61 LA Volume 34.40 mL LA Volume Index 20.60 mL/m2 (M/F) 16-34 EF AP4 61.00 % EF AP2 61.9 % EF BP 62.0 % GL Strain -16.1 % M-Mode Dimensions RVDd 2.27 cm (0.9-2.6) LVDd 5.31 cm (3.5-5.7) Ao Diam 3.13 cm (2.0-3.7) LVDs 3.83 cm (3.5-5.7) IVSd 0.72 cm (0.6-1.1) PWd 0.76 cm (0.6-1.1) EF (Teich) 53.60% FS 27.90% EDV (Teich) 135.90 mL TAPSE 2.02 (<1.7) ESV (Teich) 63.10 mL LV Diastology E Decel Time 214 (160-240 msec) E/A Ratio 1.3 MED E' 7.6 (>= 7 cm/sec) E'/MED E' Ratio 10.33 (<= 14) LAT E' 9.2 (>= 10 cm/sec) E/LAT E' Ratio 8.53 (<= 14) Aortic Valve LVOT Max 128.0 (70-110 cm/s) LESTER Index 1.11 cm2/m2 LVOT VTI 32.80 cm AoV Peak Alexi. 201.0 (50-130 cm/s) AI PHT 723.00 ms AO Mean GR. 8.00 (<5 mmHg) AO VTI 48.0 (18-25 cm) LESTER (VTI) 1.86 (2.5-4.5 cm2) Mitral Valve MV E Max Alexi. 79.0 (40-130 cm/s) MV A Velocity 60.0 (40-130 cm/s) E/A Ratio 1.32 MV Decel. Time 214 (160-240 ms) Left Ventricle The left ventricle is normal size. Left ventricular systolic function is normal. The left ventricular ejection fraction is within the normal range. There is increased left ventricular wall thickness. There is normal LV segmental wall motion. The left ventricular diastolic function is normal. LVEF is 55% Right Ventricle The right ventricle is normal size. The right ventricular systolic function is normal. Atria The left atrium is moderately dilated. The right atrium is moderately dilated. There is no color Doppler evidence of interatrial shunt. Aortic Valve The aortic valve is mildly thickened. There is no hemodynamically significant aortic valvular stenosis. Mild to moderate aortic regurgitation is present. Mitral Valve The mitral valve is mildly thickened. No evidence of mitral valve stenosis. Mild mitral regurgitation is present. Tricuspid Valve The tricuspid valve leaflets are thin and pliable. Mild tricuspid regurgitation. RVSP is 20-25 mmHg. Pulmonic Valve The pulmonary valve is grossly normal in structure. Mild pulmonic valve regurgitation is present. Great Vessels The aortic root is normal in size. IVC is normal in size and collapses >50% with inspiration. Pericardium There is no pericardial effusion. Other Information Study Quality: Fair Conclusion Normal biventricular systolic function. Biatrial dilation. Mild to moderate AI. Mild MR, mild TR, mild PI. Electronically signed by : Angelica Crook MD 05/28/2025 13:20:23
== END 2025-05-21 23:59 | disposition home or self-care (01) ==
LOC: RAD 07:48
PROVIDERS: PCP Family Medicine; Visit Provider Internal Medicine
DX: I08.8 Other rheumatic multiple valve diseases (principal); I11.9 Hypertensive heart disease without heart failure; I49.1 Atrial premature depolarization; I48.91 Unspecified atrial fibrillation; I70.1 Atherosclerosis of renal artery; I25.10 Atherosclerotic heart disease of native coronary artery without angina pectoris; R55 Syncope and collapse; Z95.5 Presence of coronary angioplasty implant and graft
CPT/HCPCS: 78452; 93017; 93018; 93306; A9502; J2785

== ENCOUNTER 2025-06-09 10:36 | Inpatient (IN) | payer MEDICARE, SELFPAY ==
[2025-06-09] VITALS (11 sets, daily range): BP systolic 90–181; BP diastolic 59–72; PULSE 58–63; RESP 16–18; TEMP 36.6–36.8; O2SAT 84–96; BMI 23.1
--- OUTSIDE RECORDS SUMMARY | 2025-06-09 11:36 | XMS_ITS | Clinical Summary ---
Author Organization [facility] Address [address] [place] [address] Phone Care Team Providers Care Candle Making Supervisor Name Role Phone Alli Negrete MD Primary Care Provider [phone] Jai Sena MD Unavailable [phone] Allergies Active Allergy Reactions Criticality Noted [...] patient's age to complete this topic Insurance [employer] MEDICARE PPO MR [employer] MEDICARE PPO MR Care Teams Candle Making Supervisor Relationship Specialty Start Date End Date Alli Negrete MD PCP - General Family Medicine 07/16/14 Jai Sena MD [address] [place] [address] Physician Internal Medicine-Interventional Cardiology 08/14/14
--- OUTSIDE RECORDS SUMMARY | 2025-06-09 11:36 | XMS_ITS | Clinical Summary ---
Author Organization [facility] Address [address] [id number] Care Team Providers Care Biodiesel Division Manager Name Role Phone Alli Negrete MD Primary Care Provider [phone] Social History Tobacco Use Types Packs/Day Years [...] (2 of 2 - PCV) 04/21/2021 04/21/2020 [id number] Vaccine (6 - 2025-26 season) 2025 06/03/2023, [...] complete this topic Insurance MEDICARE Care Teams Biodiesel Division Manager Relationship Specialty Start Date End Date Alli Negrete MD PCP - General 12/18/20
--- OUTSIDE RECORDS SUMMARY | 2025-06-09 11:36 | XMS_ITS | Data Portability ---
Author Organization [facility] Address [address] [place] [address] Assessment No assessment recorded. Plan of Treatment Reminders Order Date Submit Date Provider Last Modified By Organization Details Last Modified Time Details Appointments FOLLOW UP DAK 2025 11:00A M ABI FRIEDMAN PA-C Not available Not available Not available Lab surgical pathology study [address] [facility], [address] [place] [address], [phone], 11/01/2024 15:06:36 Referral None recorded. Procedures None recorded. Surgeries None recorded. Imaging None recorded. Medication Orders fluoroura cil 5 % topical cream 2024 025 [place] [address] [facility], [address] [place] [address], [phone], 10/31/2024 16:57:11 hydrocort isone 2.5 % topical ointment 2024 025 [place] [address] [facility], [address] [place] [address], [phone], 10/31/2024 16:57:11 Patient TargetsNo targets recorded. Patient InstructionsNo instructions recorded. Reason for Referral None Reported. Results Created Date Observation Date Name Description Value Unit Range Abnormal Flag Note LastModifiedBy Organization Detail LastModifiedTime 11/01/1910/31/2024 SURGI JOB surgical SEE BELOW [place] topat holog y Repor t NAME: AMELIA [...] Out Date: 11/01 11:43 1 Not Available [facility] [address] [place], [address], 11/01/2024 15:06:36 Result Notes None recorded. Procedures Surgical History Date Name Laterality Status Provider Name and Address Organization Details Recorded Time 10/31/2024 DAK - Cryo AK completed [facility] 10/31/2024 14:45:04 10/31/2024 Blade Biopsy completed [facility] 10/31/2024 14:45:57 Imaging Results None recorded. Procedure Notes None recorded. Medical Equipment None Reported. Allergies Allergen ID Allergen Name Allergen Category Reaction Reaction Severity Criticality Documentation Date Start Date Code Code System Note Provider Name and Address Organization Details Recorded Time 766265 Product containin g penicilli n (product) medicatio n Not available Not available Not available 10/31/2024 91552 8001 SNOMED [facility] 14:15:02 703960 Substance with sulfonami de structure and antibacte rial mechanism of action (substanc e) medicatio n Not available Not available Not available 10/31/2024 74195 8003 SNOMED [facility] 14:15:08 Medications Name Sig Start Date Stop [...] available 2024 14:17:25 Medical History Condition Response Autoimmune disease N Melanoma N Skin Cancer N Squamous Cell Carcinoma N Acne N Skin Problems N Other Skin Condition N Varicose Veins N Eczema N Basal Cell Carcinoma N Gynecological HistoryNo gynecological history recorded. Obstetrics History GPAL:G 0 P 0 0 0 0 Past Encounters Encounter ID Performer Location Encounter Start Date Encounter Closed Date Diagnosis/Indication Diagnosis SNOMED-CT Code Diagnosis ICD10 Code Diagnosis IMO Codes Diagnosis Note [id number] ABI FRIEDMAN PA-C [address] [address] 10/31/2024 13:35:53 10/31/2024 14:54:30 Multiple benign melanocytic nevi 150868956 D22.5 L81.4 L82.1 D18.01 Benign appearing lesions.Re assurance given.Sun protection discussed. Look for physical lachelle sunscreens with at least SPF 30 containing zinc oxide or titanium dioxide as active ingredient .Recommend monthly self examinatio ns and yearly full skin examinatio n with a dermatolog y provider.P atient instructed to call with any concerns or changing lesions. History of malignant neoplasm of skin 436663665 Z85.828 SCC (2018)Scar (s) clear with no [...] Neoplasm o f uncertain behavior of skin 48668078 D48.5 The etiology of lesion(s) discussed. x1 [...] (MEDICARE REPLACEMENT/ ADVANTAGE - PPO) Amelia Sidhu [id number] Amelia Sidhu Notes Date Note Type Note Provider Name and Address Organization Details Recorded Time 10/31/2024 text/html ROS as noted in the HPI Here for a full body skin examination - last skin check: 09/2022- history of skin cancer - SCC- last skin cancer was in 2018- spots of concern today: face, both arms ABI FRIEDMAN PA-C [address] [place], [address], [facility] 10/31/2024 17:11:06 OBGyn Episode No OBEpisode recorded.
--- OUTSIDE RECORDS SUMMARY | 2025-06-09 11:36 | XMS_ITS | Clinical Summary ---
Author Organization [facility] Address [address] [place] [address] Care Team Providers Care Caustic Mixer Name Role Phone Alli Negrete MD Primary Care Provider [phone] Allergies Active Allergy Reactions Criticality Noted Date [...] , 05/14/2019, Additional history exists COVID-19 Vaccine (4 - 2024-2 6 season) 2025 08/17/2022, 12/08/2021, 10/16/2020, Additional history exists [place] [address] [place] [address] MEDICARE ADVANTAGE PPO Care Teams Caustic Mixer Relationship Specialty Start Date End Date Alli Negrete MD [address] [place], [place] [id number] PCP - General Family Medicine 03/30/16
--- NOTE | 2025-06-09 11:56 | XR_ITS ---
FINAL REPORT TECHNIQUE: Single view chest CLINICAL HISTORY: short of breath COMPARISON: 11/18/2024 FINDINGS: A single view of the chest was obtained. The heart and mediastinum are within normal limits. There are low lung volumes. Left base opacity could represent atelectasis or pneumonia. There is no effusion or pneumothorax. IMPRESSION: Left base opacity which could represent atelectasis or pneumonia. Reviewed, Interpreted and Dictated by Minnie Pham MD Transcribed by Martha Kauffman Authenticated and [facility]
--- NOTE | 2025-06-09 11:56 | CT_ITS ---
FINAL REPORT TECHNIQUE: Thin section axial images are obtained through the abdomen and pelvis after intravenous contrast. Reconstruction images were obtained from the axial data. Exam was performed using dose reduction techniques. CLINICAL HISTORY: abdominal pain FINDINGS: LUNG BASES: There are small bilateral pleural effusions and bilateral lower lobe atelectasis. Heart is mildly enlarged. LIVER: There is a small cyst in the right hepatic lobe. There is intrahepatic biliary ductal dilatation likely related to cholecystectomy. No calcified common duct stones are seen. No focal lesion. GALLBLADDER/BILIARY SYSTEM: Gallbladder is absent. SPLEEN: Unremarkable. PANCREAS: Pancreatic duct is prominent to the level of the ampulla. Otherwise, no pancreatic abnormality is seen. ADRENALS: Unremarkable. KIDNEYS/URETERS/BLADDER: There are bilateral renal cysts. There is no hydronephrosis or renal stone Unremarkable urinary bladder. GI TRACT: Small hiatal hernia. No evidence of small bowel obstruction. Appendix not visualized. No secondary findings of appendicitis. There is fluid and gaseous distention of the proximal portions of the colon. Cecum is distended up to 11 cm. Rectum is distended up to 8.5 cm. No obstructing lesion is identified. PELVIC ORGANS: Unremarkable for age. Uterus is present. LYMPH NODES/RETROPERITONEUM/MESENTERY: No lymphadenopathy. No abdominal aortic aneurysm. ABDOMINAL WALL: The abdominal wall is intact. FREE FLUID: No ascites. BONES: There are age-indeterminate compression fractures of L3 in the inferior endplate of L4. IMPRESSION: 1. Colonic distention without obstructing lesion. Findings could represent ileus. 2. Biliary dilatation and pancreatic ductal dilatation. Small lesion at the ampulla not excluded. 3. Age-indeterminate fracture of L3 and L4. Reviewed, Interpreted and Dictated by Minnie Pham MD Transcribed by Martha Kauffman Authenticated and . [facility]
--- NOTE | 2025-06-09 12:11 | ED_ITS ---
<Statement entered by Los Muir MD - 06/09/25 16:48> I consulted the DILIA, and we discussed the complexity of the problems being addressed. I approved the treatment and management plan for this patient's care in the emergency department, thus performing a substantial portion of the medical decision making. Judd Muir MD Discharge Plan Disposition Patient Disposition: Admitted Prescriptions Prescriptions: No Action amiodarone 200 mg tablet 200 mg PO DAILY Qty: 90 3RF fexofenadine [Eri Allergy] 180 mg tablet 180 mg PO DAILY Qty: 90 3RF [facility] [employer] AREDS-2 250-90-40-1 mg capsule 1 tab PO BID metoprolol succinate 25 mg tablet extended release 24 hr 25 mg PO DAILY Qty: 30 3RF cyanocobalamin (vitamin B-12) 1,000 mcg/mL solution 1,000 mcg IM WEEKLY Qty: 10 10RF Rx Instructions: please provide needles/syringes atorvastatin 40 mg tablet 40 mg PO DAILY Qty: 90 3RF nifedipine 30 mg tablet extended release 24hr 30 mg PO DAILY Qty: 90 3RF Eliquis 5 mg tablet See Rx Instructions .ROUTE .COMPLEX Qty: 180 3RF Dose Instruction: TAKE 1 TABLET TWICE DAILY Rx Instructions: TAKE 1 TABLET TWICE DAILY clopidogrel 75 mg tablet 75 mg PO DAILY Qty: 90 3RF Referrals Follow up/Referrals: Alli Negrete MD [Primary Care Provider, Family Practice] - See instructions Clinical Impressions Clinical Impression: Constipation, Ileus, LELA (acute kidney injury) Print Language Print Language: Irish Discharge ED Provider: Los Muir General Adult HPI General Chief complaint: PAIN Stated complaint: AO- 06/05- back pain, not able to move without hel Time Seen by Provider: 06/09/25 11:43 Mode of Arrival: Wheelchair Source of Information: Patient and Relative Description of Symptoms (Recalled from ER Triage Doc. by RN): Pt states she was loading wood into the stove on when she felt a pop in her back. Pt states since then she has been having increasingly worse back pain. Pt also is c/o abdominal pain. According to the pt, she has not had a bowel movement in around 9 days, but states her back pain is worse than her abdominal pain. Pt family at bedside states she has not been eating or drinking like normal since when she hurt her back. History of Present Illness HPI narrative: 89-year-old female presents to the ED today for complaint of low back pain since last week. She was lifting some wood into the wood stove on and she felt a pop in her back. She has been having increasing back pain since. She has been laying in bed and only getting up to use the bathroom. She now has stopped eating and drinking since her back pain has began. She has not had a bowel movement in 9 days. She also has abdominal pain. Related Data Home Medications ?Medication ?Instructions ?Recorded ?Confirmed vit C 250 mg-vit E 90 mg-zinc 40 1 tab PO BID 03/31/25 06/02/25 mg-copper 1 [id number] capsule ([facility] AREDS-2) Previous Rx's ?Medication ?Instructions ?Recorded fexofenadine 180 mg tablet 180 mg PO DAILY allergies # 90 tabs 04/15/21 (Eri Allergy) amiodarone 200 mg tablet 200 mg PO DAILY #90 tabs 02/27 atorvastatin 40 mg tablet 40 mg PO DAILY . #90 tabs nifedipine 30 mg tablet,extended 30 mg PO DAILY #90 ta bs 08/20/24 release 24 hr apixaban 5 mg tablet (Eliquis) See Rx Instructions .Ro sandhya 10/04/24 .COMPLEX #180 tabs metoprolol succinate 25 mg 25 mg PO DAILY #30 tabs tablet,extended release 24 hr cyanocobalamin (vitamin B-12) 1,000 mcg IM WEEKLY #10 mL 05/29/25 1,000 mcg/mL injection solution clopidogrel 75 mg tablet 75 mg PO DAILY . #90 tabs Allergies Allergy/AdvReac Type Severity Reaction Status Date / Time Penicillins Allergy Severe Unknown Verified 06/02/25 14:19 allergy reaction Sulfa (Sulfonamide Allergy Severe Unknown Verified 06/02/25 14:19 Antibiotics) allergy reaction [facility] Disclaimer: The information contained in this section may have been updated after the patient was seen, as this information can be updated by other users. Medical History Bradycardia with 31-40 beats per minute Syncope Allergic rhinitis Abnormal ankle brachial index (SUHA) Edema Uncompensated short term memory deficit Biatrial enlargement Elevated serum creatinine Fatigue Atrial fibrillation with RVR Thoracic aortic aneurysm Left anterior fascicular block PAF (paroxysmal atrial fibrillation) Celiac artery stenosis Renal artery stenosis Weight loss Dyspnea Chest pain Essential hypertension Abnormal electrocardiography Surgical History Hx laparoscopic cholecystectomy History of mastectomy Family History Other No significant family history Social History Smoking Status: Never smoker alcohol intake: never substance use type: denies use current occupational status: retired Travel in the last 8 weeks?: Inside the [place] household members: spouse housing: house current occupational exposures/hazards: No caffeine: No Have you lived/traveled outside US in past 30 days?: No Contact w/someone who lives/traveled outside US past 30 days?: No Exposure to someone with infectious disease in past 14 days?: No Do you have a fever (greater than 100.4 F or 38 C)?: No Have you tested positive for COVID-19?: No Exposed to someone with COVID-19 in past 14 days?: No Do you have a sore throat?: No Do you have a cough?: No Do you have any weakness?: No Do you have any diarrhea?: No Are you experiencing any unusual bleeding?: No Do you have any muscle aches/pain?: No Do you have any abdominal pain?: No Are you experiencing loss of taste or smell?: No Other Medical History Have you received the Flu Vaccine for this season: No Have you received the Pneumonia Vaccine: No ROS Obtained: Yes Systems reviewed as appropriate & no additional complaints except as documented Constitutional Constitutional: Reports as per HPI Physical Exam General General appearance: alert Head Head exam: normocephalic Eye Eye exam: Present PERRL and EOMI ENT ENT exam: Present normal oropharynx and mucous membranes moist Neck Neck exam: Present full ROM and trachea midline Respiratory Respiratory exam: Present normal lung sounds bilaterally Cardiovascular Cardiovascular exam: Present normal rhythm, bradycardia, normal heart sounds, +S1 and +S2 Abdominal Exam Abdominal exam: Present distention and diminished bowel sounds Abdominal tenderness: Present diffuse Extremities Exam Extremities exam: Present normal capillary refill Back Exam Back exam: Present tenderness and muscle spasm Neurological Exam Neurological exam: Present alert and oriented X3 Skin Skin exam: Present warm and dry Medical Decision Making Medical Records Screening: Per USPSTF and CDC recommendations, given the prevalence of disease in our region, it is our hospital?s policy to screen for HIV and viral Hepatitis for all patients aged 18 and over and those with ongoing risk factors. Lamonte Inquiry Pt receiving controlled substance: No Lamonte was queried for this patient: No Vital Signs: 06/09/25 11:40 06/09/25 11:46 06/09/25 12:33 Temperature 97.9 F Temperature Source Oral Pulse Rate 58 L 58 L Pulse Rate [Right] 58 L Respiratory Rate 18 18 Blood Pressure 90/63 L 181/72 H Blood Pressure [Right Arm] 90/63 L Blood Pressure Mean [Right Arm] 72 Blood Pressure Source [Right Arm] Automatic Cuff Blood Pressure Position Sitting Blood Pressure Position [Right Arm] Sitting 02 Sat by Pulse Oximetry 96 94 L 95 Oxygen Delivery Method Nasal Cannula Nasal Cannula Nasal Cannula Oxygen Flow Rate (LPM) 2 2 2 06/09/25 13:00 06/09/25 13:55 06/09/25 14:01 Temperature Temperature Source Pulse Rate 59 L 60 60 Pulse Rate [Right] Respiratory Rate Blood Pressure 169/70 H 169/63 H 176/70 H Blood Pressure [Right Arm] Blood Pressure Mean [Right Arm] Blood Pressure Source [Right Arm] Blood Pressure Position Blood Pressure Position [Right Arm] 02 Sat by Pulse Oximetry 92 L 92 L 92 L Oxygen Delivery Method Nasal Cannula Oxygen Flow Rate (LPM) 2 Lab Data Lab Results 06/09/25 12:38: WBC 13.0 H, RBC 4.53, Hgb 12.6, Hct 38.7, MCV 85.4, MCH 27.8, MCHC 32.6, RDW 18.6 H, Plt Count 361, MPV 10.7 H, Neut % (Auto) 81.5 H, Lymph % (Auto) 6.6 L, [place] % (Auto) 10.9 H, Eos % (Auto) 0.0 L, Baso % (Auto) 0.2, Neut # (Auto) 10.6 H, Lymph # (Auto) 0.9, [place] # (Auto) 1.4 H, Eos # (Auto) 0.0, Baso # (Auto) 0.0, Sodium 133 L, Potassium 3.9, Chloride 101, Carbon Dioxide 23, Anion Gap 12.9, BUN 47 H, Creatinine 1.20 H, Estimated Creat Clear 31, Estimated GFR 42 L, Est GFR ( Amer) 51 L, Glucose 133 H, Calcium 8.8, Magnesium 2.4 H, Total Bilirubin 0.8, AST 53 H, ALT 100 H, Alkaline Phosphatase 198 H, Total Creatine Kinase 246 H, Total Protein 8.2, Albumin 3.7, Globulin 4.5 H, A lbumin/Globulin Ratio 0.8 L, Lipase 132 06/09/25 14:50: Urine Color Dark yellow, Urine Appearance Clear, Urine pH 5.5, Ur Specific [place] 1.025, Urine Protein Trace, Urine Glucose (UA) Negative, Urine Ketones Trace, Urine Blood Negative, Urine Nitrate Negative, Urine Bilirubin Negative, Urine Urobilinogen 0.2, Ur Leukocyte Esterase Negative, Urine RBC None, Urine WBC Occasional, Ur Squamous Epith Cells Occasional, Urine Bacteria Trace, Hyaline Casts Occ 06/09/25 12:38 06/09/25 12:38 Orders (Tests/Meds): ED MEDICATIONS Generic Name Dose Route Start Last Admin Trade Name Freq PRN Reason Stop Dose Admin Lactated Ringer's 1,000 mls @ 50 mls/hr 06/09/25 16:15 Lactated Ringer's 1000 Ml Bag IV 07/09/25 16:14 .Q20H JES Sodium Chloride 8 ml 06/09/25 11:55 Sodium Chloride 0.9% 10ml Vial IV 07/09/25 11:54 NEEDED PRN dilute pepcid Sodium Chloride 10 ml 06/09/25 13:27 06/09/25 13:28 Sodium Chloride 0.9% 10ml Syr (Rad Only) IV 07/09/25 13:26 10 ml NEEDED PRN Administration Maintain IV Site Discontinued Medications Generic Name Dose Route Start Last Admin Trade Name Freq PRN Reason Stop Dose Admin Acetaminophen 1,000 mg 06/09/25 11:55 06/09/25 12:36 Acetaminophen 1,000mg/100ml Vial IV 06/09/25 11:56 1,000 mg ONCE ONE Administration Famotidine 20 mg 06/09/25 11:55 06/09/25 12:36 Famotidine 20mg/2ml Vial IV 06/09/25 11:56 20 mg ONCE ONE Administration Glycerin 3 gm 06/09/25 15:50 Glycerin Adult 3gm Supp RC 06/09/25 15:51 ONCE ONE Sodium Chloride 1,000 mls @ 999 mls/hr 06/09/25 11:55 06/09/25 13:35 Sod Chlor 0.9% 1000ml Bag IV 06/09/25 12:55 Infused .Q1H1M ONE Infusion Iopamidol 70 ml 06/09/25 13:27 06/09/25 13:28 Iopamidol-370 (76%);100ml Bottle IV 06/09/25 13:28 70 ml ONCE ONE Administration Ketorolac Tromethamine 30 mg 06/09/25 11:55 06/09/25 12:36 Ketorolac 30mg/Ml Vial IV 06/09/25 11:56 30 mg ONCE ONE Administration Orphenadrine Citrate 30 mg 06/09/25 11:55 06/09/25 12:36 Orphenadrine Citrate 60mg/2ml Vial IV 06/09/25 11:56 30 mg ONCE ONE Administration ORDERS Category Date Time Status CT abdomen pelvis w con Stat Cat Scan 06/09/25 11:56 Completed Chest XR -- portable [XR chest portable] Stat Exams 06/09/25 11:56 Completed Knee XR left 3 views [XR knee LT 3V] Stat Exams 06/09/25 13:13 Completed CBC [Complete Blood Count Auto Diff] Stat Lab 06/09/25 12:38 Completed Complete Blood Count Auto Diff AMLAB Lab 06/10/25 06:00 Ordered Comprehensive Metabolic Panel AMLAB Lab 06/10/25 06:00 Ordered Comprehensive Metabolic Panel Stat Lab 06/09/25 12:38 Completed Creatine Kinase Stat Lab 06/09/25 12:38 Completed Lactic Acid Stat Lab 06/09/25 12:02 Ordered Lipase Stat Lab 06/09/25 12:38 Completed Magnesium AMLAB Lab 06/10/25 06:00 Ordered Magnesium Stat Lab 06/09/25 12:38 Completed Urinalysis-Acute [Urinalysis and Microscopic] Stat Lab 06/09/25 14:50 Completed Medical Decision Narrative: patient is a 89-year-old female presenting to the emergency department for evaluation of back and abdominal pain. Patient is hemodynamically stable and nontoxic-appearing upon arrival, afebrile. Differential diagnosis includes back pain, muscle spasms, constipation, among others. Workup will be conducted with hematologic labs, specific imaging, provocative tests. Initial inventions include crystalloid bolus, analgesics, antibiotics. Initial workup reviewed by me hematologic labs are remarkable for white blood cell count 13, BUN 47, creatinine 1.2, GFR 42 AST 53, ALT [address] scan showed fluid and gaseous distention of the proximal portion of the colon. Cecum is distended 11 cm. Rectum is distended 8.5 cm. Patient is admitted to Dr. Ngo. I did speak with GI Dr. Busch. He will be glad to see patient he does want patient on every 4 hour glycerin suppositories and enemas. Once she starts to have bowel movements he wants to do Relistor or Movantik. Patient will be seen by Dr. Busch tomorrow morning. Critical Care Critical Care Time Critical Care Time: No
--- NOTE | 2025-06-09 12:24 | ECG_ITS ---
APPROVED REPORT Exam: Resting ECG HR:57 bpm ECG Measurements Heart Rate 57 AXES MT 237 P 65 QRSd 121 QRS -30 QT 460 T 35 QTc 454 Conclusion SINUS BRADYCARDIA WITH FIRST DEGREE AV BLOCK MODERATE INTRAVENTRICULAR CONDUCTION DELAY [105+ ms QRS DURATION, 80+ ms Q/S IN V1/V2, NO Q AND 60+ ms R IN I/aVL/V5/V6] ABNORMAL ECG Electronically signed by : MIKEY SINGH, 06/16/2025 07:21:32
[2025-06-09] MEDS: 0.9 % SODIUM CHLORIDE 1000ML 1,000 ML 999 ML IV (12:34)
[2025-06-09] MEDS: ACETAMINOPHEN 1,000MG/100ML VIAL 1000 MG IV (12:36)
[2025-06-09] MEDS: KETOROLAC 30MG/ML VIAL 30 MG IV (12:36)
[2025-06-09] MEDS: FAMOTIDINE 20MG/2ML VIAL 20 MG IV (12:36)
[2025-06-09] MEDS: ORPHENADRINE CITRATE 60MG/2ML VIAL 30 MG IV (12:36)
[2025-06-09 12:55] LABS: Hematocrit 38.7 % (37.0-47.0); Hemoglobin 12.6 g/dL (12.2-16.2); Immature Granulocytes % 0.8 %; Mean Corpuscular HGB Conc 32.6 g/dL (31.8-35.4); Mean Corpuscular Hemoglobin 27.8 pg (27.0-31.2); Mean Corpuscular Volume 85.4 fl (81-99); Nucleated Red Blood Cells % 0 %; Platelet Count 361 K/mm3 (142-424); Red Blood Count 4.53 M/mm3 (4.20-5.40); Red Cell Distribution Width-SD 57.5 fL; White Blood Count 13.0 K/mm3 (4.8-10.8)
[2025-06-09 13:08] LABS: Alanine Aminotransferase 100 U/L (12-78); Albumin Level 3.7 g/dl (3.5-5.0); Albumin/Globulin Ratio 0.8 (1.1-1.8); Alkaline Phosphatase 198 U/L (38-126); Anion Gap 12.9 mEq/L (5-15); Aspartate Amino Transferase 53 U/L (14-36); Bilirubin,Total 0.8 mg/dl (0.2-1.3); Blood Urea Nitrogen 47 mg/dl (7-17); Calcium 8.8 mg/dl (8.4-10.2); Carbon Dioxide 23 mmol/L (22.0-30.0); Chloride 101 mmol/L (98-107); Creatine Kinase 246 U/L (30-135); Creatinine Clearance Estimated 31 mL/min (50-200); Creatinine,Serum 1.20 mg/dl (0.52-1.04); Estimated Glomerular Filt Rate 42 ml/min (>60); GFR (African American) 51 ML/MIN (>60); Globulin 4.5 g/dL (1.3-3.2); Glucose 133 mg/dl (74-100); Lipase 132 U/L (23-300); Magnesium 2.4 mg/dl (1.6-2.3); Potassium 3.9 mmoL/L (3.5-5.1); Sodium 133 mmol/L (136-145); Total Protein,Serum 8.2 g/dl (6.3-8.2)
--- NOTE | 2025-06-09 13:13 | XR_ITS ---
FINAL REPORT CLINICAL HISTORY: pain FINDINGS: LEFT KNEE 3 views of the left knee were obtained. There is no acute fracture or dislocation. There are mild degenerative changes. Visualized joint spaces are normally aligned. Soft tissues are unremarkable. IMPRESSION: No acute bony abnormality. Reviewed, Interpreted and Dictated by Minnie Pham MD Transcribed by Martha Kauffman Authenticated and [facility]
--- NOTE | 2025-06-09 13:22 | PC.NURSE ---
patient gone to RAD at this time.
[2025-06-09] MEDS: SODIUM CHLORIDE 0.9% 10ML SYR (RAD ONLY) 10 ML IV (13:28)
[2025-06-09] MEDS: IOPAMIDOL-370 (76%);100ML BOTTLE 70 ML IV (13:28)
--- NOTE | 2025-06-09 13:54 | PC.NURSE ---
Pt resting in bed. No needs voiced. Marie @ bedside. Pt made aware of need for UA, pt states she does not needs to void @ this time. Call opal w/in reach.
[2025-06-09 14:55] LABS: Microscopic, Urine URINE MICROSCOPIC (MICROSCOPIC)
[2025-06-09 15:06] LABS: Glucose,Urine (UA) Negative (Negative); Ketones,Urine TRACE (Negative); Leukocyte Esterase,Urine Negative (Negative); PH,Urine 5.5 (5.0-8.5); Protein,Urine TRACE (Negative); Specific Gravity, Urine 1.025 (1.005-1.030); Urobilinogen,Urine 0.2 EU/dl (0.2)
--- NOTE | 2025-06-09 15:07 | PC.NURSE ---
Asked for something to drink checked with the doctor and he said she could have a swab.
[2025-06-09 15:11] LABS: Bilirubin,Urine Negative (Negative); Color,Urine Dark Yellow (Yellow)
[2025-06-09 15:16] LABS: Bacteria,Urine Trace /lpf; Hyaline Casts,Urine OCC #/lpf (0); Squamous Epithelial Cell,Urine Occasional #/hpf (0-5); WBC,Urine Occasional #/hpf (0-3)
--- NOTE | 2025-06-09 16:01 | EXP.HP ---
History of Present Illness *Admission Date: 06/09/25 *Reason for visit:: Abdominal pain, distention *History of present illness: Ms. Sidhu is an 89-year-old female with history of A-fib, hypertension, history of cancer who has had worsening back pain over the past few weeks. Went to the ER last week where she was started on some opiates. States she has not had a bowel movement since that visit to the ER. Reports however that she had not had a bowel movement 3 to 4 days prior to starting opiate therapy. Has been about 9 days since her last bowel movement. Abdomen has become more distended. She is passing gas occasionally. Complains of some nausea but no felipe emesis. Her pain has worsened over the past day or 2. Family encouraged her to come to the ER for evaluation. She has not been eating or drinking normally since last due to pain and distention in her belly. Denies felipe fever but has had some occasional chills. Is alert and oriented x 3. On workup in the ER, found to have a white count of 13. Abdomen distended with CT of abdomen showing severe distention of colon upwards of 11 cm. Also has a large cyst on her left kidney. Concern for left lower lobe pneumonia on chest imaging with new oxygen requirement. GI was consulted who recommended enemas and suppositories. Medicine consulted for admission and further management. On arrival to the floor, patient appears in mild distress. Wants to lay flat in bed. No peritoneal signs on exam however. Answers questions appropriately. [facility] Disclaimer: The information contained in this section may have been updated after the patient was seen, as this information can be updated by other users. Medical History Bradycardia with 31-40 beats per minute Syncope Allergic rhinitis Abnormal ankle brachial index (SUHA) Edema Uncompensated short term memory deficit Biatrial enlargement Elevated serum creatinine Fatigue Atrial fibrillation with RVR Thoracic aortic aneurysm Left anterior fascicular block PAF (paroxysmal atrial fibrillation) Celiac artery stenosis Renal artery stenosis Weight loss Dyspnea Chest pain Essential hypertension Abnormal electrocardiography Surgical History Hx laparoscopic cholecystectomy History of mastectomy Family History Other No significant family history Social History Smoking Status: Never smoker alcohol intake: never substance use type: denies use current occupational status: retired Travel in the last 8 weeks?: [place] the [place] household members: spouse housing: house current occupational exposures/hazards: No caffeine: No Have you lived/traveled outside US in past 30 days?: No Contact w/someone who lives/traveled outside US past 30 days?: No Exposure to someone with infectious disease in past 14 days?: No Do you have a fever (greater than 100.4 F or 38 C)?: No Have you tested positive for COVID-19?: No Exposed to someone with COVID-19 in past 14 days?: No Do you have a sore throat?: No Do you have a cough?: No Do you have any weakness?: No Do you have any diarrhea?: No Are you experiencing any unusual bleeding?: No Do you have any muscle aches/pain?: No Do you have any abdominal pain?: No Are you experiencing loss of taste or smell?: No Other Medical History Have you received the Flu Vaccine for this season: No Have you received the Pneumonia Vaccine: No Review of Systems Review of Systems Review of systems (narrative): 14 point review of systems performed, pertinent positives and negatives as per HPI Meds Home Medications and Allergies Home Medications ?Medication ?Instructions ?Recorded ?Confirmed ?Type fexofenadine 180 mg tablet 180 mg PO DAILY allergies #90 tabs 04/15/21 06/09/25 Rx (Eri Allergy) amiodarone 200 mg tablet 200 mg PO DAILY #90 tabs 05/13/24 06/09/25 Rx nifedipine 30 mg tablet,extended 30 mg PO DAILY #90 tabs 08/20/24 06/09/25 Rx release 24 hr vit C 250 mg-vit E 90 mg-zinc 40 1 tab PO BID 03/31/25 06/09/25 History mg-copper 1 [id number] capsule ([facility] AREDS-2) cyanocobalamin (vitamin B-12) 1,000 mcg IM WEEKLY #10 mL 05/29/25 06/09/25 Rx 1,000 mcg/mL injection solution apixaban 5 mg tablet (Eliquis) 5 mg PO BID 06/09/25 06/09/25 History atorvastatin 40 mg tablet 40 mg PO DAILY 06/09/25 06/09/25 History clopidogrel 75 mg tablet 75 mg PO DAILY 06/09/25 06/09/25 History metoprolol succinate 25 mg 50 mg PO DAILY 06/09/25 06/09/25 History tablet,extended release 24 hr New Prescriptions to Start Prescriptions: Allergies Allergy/AdvReac Type Severity Reaction Status Date / Time Penicillins Allergy Severe Unknown Verified 06/02/25 14:19 allergy reaction Sulfa (Sulfonamide Allergy Severe Unknown Verified 06/02/25 14:19 Antibiotics) allergy reaction Exam Data for Last 24 hours Vital signs and Labs for Last 24 Hours: Temp Pulse Resp BP Pulse Ox O2 Del Method O2 Flow Rate 97.9 F 60 18 176/70 H 92 L Nasal Cannula 2 06/09/25 11:40 06/09/25 14:01 06/09/25 11:46 06/09/25 14:01 06/09/25 14:01 06/09/25 13:00 06/09/25 13:00 Laboratory Results - last 24 hr 06/09/25 12:38: WBC 13.0 H, RBC 4.53, Hgb 12.6, Hct 38.7, MCV 85.4, MCH 27.8, MCHC 32.6, RDW 18.6 H, Plt Count 361, MPV 10.7 H, Neut % (Auto) 81.5 H, Lymph % (Auto) 6.6 L, [place] % (Auto) 10.9 H, Eos % (Auto) 0.0 L, Baso % (Auto) 0.2, Neut # (Auto) 10.6 H, Lymph # (Auto) 0.9, [place] # (Auto) 1.4 H, Eos # (Auto) 0.0, Baso # (Auto) 0.0, Sodium 133 L, Potassium 3.9, Chloride 101, Carbon Dioxide 23, Anion Gap 12.9, BUN 47 H, Creatinine 1.20 H, Estimated Creat Clear 31, Estimated GFR 42 L, Est GFR ( Amer) 51 L, Glucose 133 H, Calcium 8.8, Magnesium 2.4 H, Total Bilirubin 0.8, AST 53 H, ALT 100 H, Alkaline Phosphatase 198 H, Total Creatine Kinase 246 H, Total Protein 8.2, Albumin 3.7, Globulin 4.5 H, Albumin/Globulin Ratio 0.8 L, Lipase 132 06/09/25 14:50: Urine Color Dark yellow, Urine Appearance Clear, Urine pH 5.5, Ur Specific [place] 1.025, Urine Protein Trace, Urine Glucose (UA) Negative, Urine Ketones Trace, Urine Blood Negative, Urine Nitrate Negative, Urine Bilirubin Negative, Urine Urobilinogen 0.2, Ur Leukocyte Esterase Negative, Urine RBC None, Urine WBC Occasional, Ur Squamous Epith Cells Occasional, Urine Bacteria Trace, Hyaline Casts Occ I & O for Last 24 hours: Intake & Output 06/06/25 06/07/25 06/08/25 06/09/25 23:59 23:59 22:59 23:59 Intake Total 1000 / 1000 Balance 1000 / 1000 Weight 61.235 kg Constitutional Constitutional: mild distress, thin, chronically ill appearing and cooperative *Routine HEENT Exam Head: Present normocephalic Eye: Present EOMI and PERRL ENT: Present mucous membranes moist *Routine Neck Exam Neck: Present supple; Absent lymphadenopathy *Routine Respiratory Exam Respiratory: Present crackles (Left lung base); Absent rhonchi or wheezes *Routine Cardiovascular Exam Cardiovascular: Present RRR *Routine Abdominal Exam Abdominal: Present tenderness (Diffuse, worse in right lower quadrant however) and distended; Absent rebound or guarding Comments: Hypoactive bowel sounds; tympany *Routine Rectal Exam Rectal:: deferred *Routine Genitalia Exam Genitalia:: deferred *Routine Extremities Exam Extremities: Absent cyanosis, clubbing or edema *Routine Skin Exam Skin: Present intact and warm; Absent rash *Routine Neurological Exam Neurological: Present alert, oriented X3 and moving all extremities; Absent altered mental status Assessment and Plan *Assessment and plan (1) Ileus: Status: Acute Category: Medical Code(s): K56.7 - Ileus, unspecified (2) LELA (acute kidney injury): Status: Acute Category: Medical Code(s): N17.9 - Acute kidney failure, unspecified (3) Constipation: Status: Acute Category: Medical Code(s): K59.00 - Constipation, unspecified (4) Essential hypertension: Status: Chronic Category: Medical Code(s): I10 - Essential (primary) hypertension (5) Atrial fibrillation: Status: Acute Qualifiers: Atrial fibrillation type: unspecified Qualified Code(s): I48.91 - Unspecified atrial fibrillation Category: Medical Code(s): I48.91 - Unspecified atrial fibrillation (6) Left lower lobe pneumonia: Status: Acute Category: Medical Code(s): J18.9 - Pneumonia, unspecified organism Plan 89-year-old female who presented with 9 days of no bowel movement. Has significant distention of colon. GI was consulted from the ER, recommended admission and bowel regimen. Discussed case with ER physician, request admission for further management. I decided to admit to treat aggressively with enemas and suppositories. Will monitor for improvement in renal function with gentle rehydration. GI to see her in the morning. Also found to have left lower lobe pneumonia with new oxygen requirement. Initiate empiric antibiotics. Problems addressed as follows: Pneumonia: - Chest x-ray per my review with left lower lobe consolidation. White count of 13. New oxygen requirement of 2 L. Satting 85% on room air during my exam. - Continue ceftriaxone 1 g daily. Plan to treat for 5 days -Continue supplemental oxygen as needed for goal sats greater than 90%. Currently on 2 L oxygen. Wean as tolerated Ileus Constipation - Ileus secondary to pain and opiates along with chronic constipation. - Initiate senna orally daily, will administer 1 mineral oil enema and 1 bisacodyl suppository this evening. - Per my review of CT of abdomen, has severe distention of colon. GI consulted to evaluate in the morning. Mild LELA - Creatinine 1.2, BUN 47. Consistent with prerenal state. Administered 1 L in the ER. Will continue LR at 50 cc an hour. - Repeat CBC, CMP, magnesium ordered for the morning. - Magnesium 2.4, potassium normal at 3.9. Resume home medications for chronic conditions including A-fib and hypertension as follows: Continue amiodarone 200 mg daily, Eliquis 5 mg twice daily, Lipitor 40 mg daily, Plavix 75 mg daily, metoprolol succinate 50 mg daily, nifedipine 30 mg extended release daily Full code Eliquis 5 mg twice daily Sips and chips
--- NOTE | 2025-06-09 16:05 | PC.NURSE ---
HS notified of the need for a bed to admit the pt for constipation.
--- NOTE | 2025-06-09 16:06 | PC.NURSE ---
room [id number] admit
--- NOTE | 2025-06-09 16:34 | PC.NURSE ---
Report called to Karena Worley RN
--- NOTE | 2025-06-09 16:45 | PC.NURSE ---
arrived by w/c from ED
[2025-06-09] MEDS: MINERAL OIL ENEMA 133ML 133 ML RC (17:22)
[2025-06-09] MEDS: LACTATED RINGERS 1000ML 1,000 ML 50 ML IV (17:22)
[2025-06-09 19:01] LABS: C-Reactive Protein 30.9 mg/L (0-4)
[2025-06-09 19:28] LABS: Adenovirus F 40/41, stool Not Detected (NotDetected); Clostridium Difficile A/B, PCR Not Detected (NotDetected); Cyclospora Cayetanesis Not Detected (NotDetected); Plesimonas Shigalloides, PCR Not Detected (NotDetected); Salmonella, PCR Not Detected (NotDetected); Shiga-like toxin E coli Not Detected (NotDetected); Shigella Enterovasive E coli Not Detected (NotDetected); Vibrio, PCR Not Detected (NotDetected); Yersinia Entercolitica, PCR Not Detected (NotDetected)
[2025-06-09] MEDS: BISACODYL 10MG SUPP 10 MG RC (20:04)
[2025-06-09] MEDS: APIXABAN 5MG TABLET 5 MG PO (20:04)
[2025-06-10 04:00] VITALS: BP 127/56; PULSE 62; RESP 16; TEMP 36.7; O2SAT 95; BMI 23.3
[2025-06-10] MEDS: ACETAMINOPHEN 325MG TAB 650 MG PO (05:34)
[2025-06-10 06:31] LABS: Hematocrit 33.1 % (37.0-47.0); Immature Granulocytes % 0.6 %; Mean Corpuscular HGB Conc 33.5 g/dL (31.8-35.4); Mean Corpuscular Hemoglobin 28.4 pg (27.0-31.2); Mean Corpuscular Volume 84.7 fl (81-99); Nucleated Red Blood Cells % 0 %; Platelet Count 297 K/mm3 (142-424); Red Blood Count 3.91 M/mm3 (4.20-5.40); Red Cell Distribution Width-SD 56.1 fL; White Blood Count 10.5 K/mm3 (4.8-10.8)
[2025-06-10 06:38] LABS: Albumin Level 3.2 g/dl (3.5-5.0); Chloride 106 mmol/L (98-107); Potassium 3.8 mmoL/L (3.5-5.1); Sodium 136 mmol/L (136-145)
[2025-06-10 06:40] LABS: Alanine Aminotransferase 62 U/L (12-78); Alkaline Phosphatase 157 U/L (38-126); Anion Gap 9.8 mEq/L (5-15); Aspartate Amino Transferase 43 U/L (14-36); Bilirubin,Total 0.6 mg/dl (0.2-1.3); Blood Urea Nitrogen 40 mg/dl (7-17); Carbon Dioxide 24 mmol/L (22.0-30.0); Creatinine Clearance Estimated 32 mL/min (50-200); Creatinine,Serum 1.20 mg/dl (0.52-1.04); Estimated Glomerular Filt Rate 42 ml/min (>60); GFR (African American) 51 ML/MIN (>60)
[2025-06-10 06:41] LABS: Albumin/Globulin Ratio 1.1 (1.1-1.8); Calcium 7.8 mg/dl (8.4-10.2); Globulin 3.0 g/dL (1.3-3.2); Glucose 105 mg/dl (74-100); Magnesium 2.5 mg/dl (1.6-2.3); Total Protein,Serum 6.2 g/dl (6.3-8.2)
[2025-06-10 06:42] LABS: Hemoglobin 11.2 g/dL (12.2-16.2)
[2025-06-10 07:42] VITALS: BP 136/47; PULSE 64; RESP 16; TEMP 36.4; O2SAT 91
--- NOTE | 2025-06-10 07:49 | EXP.GE.CONS ---
History of Present Illness *Admission Date: 06/09/25 *History of present illness: Mrs. Sidhu is an 89-year-old female who was admitted from the ED with colonic distention/fecal impaction. The patient states that this started when she hurt her shoulder last and was given opiate pain medications. She does have chronic constipation for which she takes ClearLax routinely. However, after the pain medications, her constipation had worsened and she states that she had not had a bowel movement for about 9 days. She also developed abdominal distention and abdominal pain. She came to the ED to be evaluated. In the ED, her white blood cell count was 13,000 with a normal sed rate of 26. Her chemistries did show BUN 47 and creatinine 1.20 with escalation of her transaminases and alkaline phosphatase (AST 53, ALT 100, alkaline phosphatase 198 and total bilirubin 0.8). Imaging of the abdomen showed colonic distention without obstructing lesion with cecal diameter of 11 cm and rectal diameter of up to 8.5 cm. She also had biliary and pancreatic ductal dilation with no mass but some prominence at the level of the ampulla. Overnight, the patient did receive a fleets enema and suppositories and has had 2 small bowel movements. She does feel better and reports no rectal bleeding or fever. She does state that her last colonoscopy was about 10 years ago but she cannot remember. She reports no family history of colon cancer. [facility] Disclaimer: The information contained in this section may have been updated after the patient was seen, as this information can be updated by other users. Medical History Bradycardia with 31-40 beats per minute Syncope Allergic rhinitis Abnormal ankle brachial index (SUHA) Edema Uncompensated short term memory deficit Biatrial enlargement Elevated serum creatinine Fatigue Atrial fibrillation with RVR Thoracic aortic aneurysm Left anterior fascicular block PAF (paroxysmal atrial fibrillation) Celiac artery stenosis Renal artery stenosis Weight loss Dyspnea Chest pain Essential hypertension Abnormal electrocardiography Surgical History Hx laparoscopic cholecystectomy History of mastectomy Family History Other No significant family history Social History Smoking Status: Never smoker alcohol intake: never substance use type: denies use current occupational status: retired Travel in the last 8 weeks?: Inside the [place] household members: spouse housing: house current occupational exposures/hazards: No caffeine: No Have you lived/traveled outside US in past 30 days?: No Contact w/someone who lives/traveled outside US past 30 days?: No Exposure to someone with infectious disease in past 14 days?: No Do you have a fever (greater than 100.4 F or 38 C)?: No Have you tested positive for COVID-19?: No Exposed to someone with COVID-19 in past 14 days?: No Do you have a sore throat?: No Do you have a cough?: No Do you have any weakness?: No Do you have any diarrhea?: No Are you experiencing any unusual bleeding?: No Do you have any muscle aches/pain?: No Do you have any abdominal pain?: No Are you experiencing loss of taste or smell?: No Meds Home Medications and Allergies Home Medications ?Medication ?Instructions ?Recorded ?Confirmed ?Type fexofenadine 180 mg tablet 180 mg PO DAILY allergies #90 tabs 04/15/21 06/09/25 Rx (Eri Allergy) amiodarone 200 mg tablet 200 mg PO DAILY #90 tabs 05/13/24 06/09/25 Rx nifedipine 30 mg tablet,extended 30 mg PO DAILY #90 tabs 08/20/24 06/09/25 Rx release 24 hr vit C 250 mg-vit E 90 mg-zinc 40 1 tab PO BID 03/31/25 06/09/25 History mg-copper 1 ml-smpswo-lyszgs capsule ([facility] AREDS-2) cyanocobalamin (vitamin B-12) 1,000 mcg IM WEEKLY #10 mL 05/29/25 06/09/25 Rx 1,000 mcg/mL injection solution apixaban 5 mg tablet (Eliquis) 5 mg PO BID 06/09/25 06/09/25 History atorvastatin 40 mg tablet 40 mg PO DAILY 06/09/25 06/09/25 History clopidogrel 75 mg tablet 75 mg PO DAILY 06/09/25 06/09/25 History metoprolol succinate 25 mg 50 mg PO DAILY 06/09/25 06/09/25 History tablet,extended release 24 hr New Prescriptions to Start Prescriptions: Allergies Allergy/AdvReac Type Severity Reaction Status Date / Time Penicillins Allergy Severe Unknown Verified 06/02/25 14:19 allergy reaction Sulfa (Sulfonamide Allergy Severe Unknown Verified 06/02/25 14:19 Antibiotics) allergy reaction Exam (Inpt) Vital signs and Labs for Last 24 Hours: Temp Pulse Resp BP Pulse Ox O2 Del Method O2 Flow Rate 98.0 F 62 16 127/56 L 95 Nasal Cannula 2 06/10/25 04:00 06/10/25 04:00 06/10/25 04:00 06/10/25 04:00 06/10/25 04:00 06/10/25 06:50 06/10/25 06:50 Laboratory Results - last 24 hr 06/09/25 12:38: WBC 13.0 H, RBC 4.53, Hgb 12.6, Hct 38.7, MCV 85.4, MCH 27.8, MCHC 32.6, RDW 18.6 H, Plt Count 361, MPV 10.7 H, Neut % (Auto) 81.5 H, Lymph % (Auto) 6.6 L, [place] % (Auto) 10.9 H, Eos % (Auto) 0.0 L, Baso % (Auto) 0.2, Neut # (Auto) 10.6 H, Lymph # (Auto) 0.9, [place] # (Auto) 1.4 H, Eos # (Auto) 0.0, Baso # (Auto) 0.0, Sodium 133 L, Potassium 3.9, Chloride 101, Carbon Dioxide 23, Anion Gap 12.9, BUN 47 H, Creatinine 1.20 H, Estimated Creat Clear 31, Estimated GFR 42 L, Est GFR ( Amer) 51 L, Glucose 133 H, Calcium 8.8, Magnesium 2.4 H, Total Bilirubin 0.8, AST 53 H, ALT 100 H, Alkaline Phosphatase 198 H, Total Creatine Kinase 246 H, Total Protein 8.2, Albumin 3.7, Globulin 4.5 H, Albumin/Globulin Ratio 0.8 L, Lipase 132 06/09/25 14:50: Urine Color Dark yellow, Urine Appearance Clear, Urine pH 5.5, Ur Specific [place] 1.025, Urine Protein Trace, Urine Glucose (UA) Negative, Urine Ketones Trace, Urine Blood Negative, Urine Nitrate Negative, Urine Bilirubin Negative, Urine Urobilinogen 0.2, Ur Leukocyte Esterase Negative, Urine RBC None, Urine WBC Occasional, Ur Squamous Epith Cells Occasional, Urine Bacteria Trace, Hyaline Casts Occ 06/09/25 16:22: Lactate 1.0 06/09/25 18:32: ESR 26, C-Reactive Protein 30.9 H 06/09/25 19:25: Stl C. cayetanensis PCR Not detected, Stool Rotavirus (PCR) Not detected, Stl Adenov F 40/41 PCR Not detected, Stool Astrovirus (PCR) Not detected, Stool Campylobacter PCR Not detected, Stl C.difficile Tox PCR Not detected, Stool Cryptosporidium PCR Not detected, Stl E.coli Shiga Tox PCR Not detected, Stool E coli O157 PCR Not detected, Stl Enterotoxigenic E PCR Not detected, Stool EPEC (PCR) Not detected, Stool EAEC (PCR) Not detected, Stl E. histolytica PCR Not detected, Stool Giardia Lamblia PCR Not detected, Stool Salmonella PCR Not detected, Stool Sapovirus (PCR) Not detected, Stl P. shigelloides PCR Not detected, Stl Shigella/EIEC PCR Not detected, St Y.enterocolitica PCR Not detected, Stool Vibrio (PCR) Not detected, Stl Vibrio cholerae PCR Not detected, Stl Norovirus GI/GII PCR Not detected 06/10/25 05:25: WBC 10.5, RBC 3.91 L, Hgb 11.2 L D, Hct 33.1 L, MCV 84.7, MCH 28.4, MCHC 33.5, RDW 18.6 H, Plt Count 297, MPV 11.0 H, Neut % (Auto) 78.6, Lymph % (Auto) 9.1 L, [place] % (Auto) 11.3 H, Eos % (Auto) 0.1, Baso % (Auto) 0.3, Neut # (Auto) 8.2 H, Lymph # (Auto) 1.0, [place] # (Auto) 1.2 H, Eos # (Auto) 0.0, Baso # (Auto) 0.0, Sodium 136, Potassium 3.8, Chloride 106, Carbon Dioxide 24, Anion Gap 9.8, BUN 40 H, Creatinine 1.20 H, Estimated Creat Clear 32, Estimated GFR 42 L, Est GFR ( Amer) 51 L, Glucose 105 H D, Calcium 7.8 L, Magnesium 2.5 H, Total Bilirubin 0.6, AST 43 H, ALT 62 D, Alkaline Phosphatase 157 H, Total Protein 6.2 L, Albumin 3.2 L D, Globulin 3.0, Albumin/Globulin Ratio 1.1 I & O for Labs for Last 24 Hours: Intake & Output 06/07/25 06/08/25 06/09/25 06/10/25 23:59 22:59 23:59 23:59 Intake Total 1112.5 / 1232.5 120 / 120 Output Total 0 / 0 0 / 0 Balance 1112.5 / 1232.5 120 / 120 Weight 135 lb 136 lb 12.8 oz Comments:: Normoactive bowel sounds, mildly distended abdomen with very mild tenderness in the lower quadrants, no masses, no hernias, no rebound or guarding Results Labs 06/10/25 05:25 06/10/25 05:25 Labs: Laboratory Results - last 24 hr 06/09/25 12:38: WBC 13.0 H, RBC 4.53, Hgb 12.6, Hct 38.7, MCV 85.4, MCH 27.8, MCHC 32.6, RDW 18.6 H, Plt Count 361, MPV 10.7 H, Neut % (Auto) 81.5 H, Lymph % (Auto) 6.6 L, [place] % (Auto) 10.9 H, Eos % (Auto) 0.0 L, Baso % (Auto) 0.2, Neut # (Auto) 10.6 H, Lymph # (Auto) 0.9, [place] # (Auto) 1.4 H, Eos # (Auto) 0.0, Baso # (Auto) 0.0, Sodium 133 L, Potassium 3.9, Chloride 101, Carbon Dioxide 23, Anion Gap 12.9, BUN 47 H, Creatinine 1.20 H, Estimated Creat Clear 31, Estimated GFR 42 L, Est GFR ( Amer) 51 L, Glucose 133 H, Calcium 8.8, Magnesium 2.4 H, Total Bilirubin 0.8, AST 53 H, ALT 100 H, Alkaline Phosphatase 198 H, Total Creatine Kinase 246 H, Total Protein 8.2, Albumin 3.7, Globulin 4.5 H, Albumin/Globulin Ratio 0.8 L, Lipase 132 06/09/25 14:50: Urine Color Dark yellow, Urine Appearance Clear, Urine pH 5.5, Ur Specific [place] 1.025, Urine Protein Trace, Urine Glucose (UA) Negative, Urine Ketones Trace, Urine Blood Negative, Urine Nitrate Negative, Urine Bilirubin Negative, Urine Urobilinogen 0.2, Ur Leukocyte Esterase Negative, Urine RBC None, Urine WBC Occasional, Ur Squamous Epith Cells Occasional, Urine Bacteria Trace, Hyaline Casts Occ 06/09/25 16:22: Lactate 1.0 06/09/25 18:32: ESR 26, C-Reactive Protein 30.9 H 06/09/25 19:25: Stl C. cayetanensis PCR Not detected, Stool Rotavirus (PCR) Not detected, Stl Adenov F 40/41 PCR Not detected, Stool Astrovirus (PCR) Not detected, Stool Campylobacter PCR Not detected, Stl C.difficile Tox PCR Not detected, Stool Cryptosporidium PCR Not detected, Stl E.coli Shiga Tox PCR Not detected, Stool E coli O157 PCR Not detected, Stl Enterotoxigenic E PCR Not detected, Stool EPEC (PCR) Not detected, Stool EAEC (PCR) Not detected, Stl E. histolytica PCR Not detected, Stool Giardia Lamblia PCR Not detected, Stool Salmonella PCR Not detected, Stool Sapovirus (PCR) Not detected, Stl P. shigelloides PCR Not detected, Stl Shigella/EIEC PCR Not detected, St Y.enterocolitica PCR Not detected, Stool Vibrio (PCR) Not detected, Stl Vibrio cholerae PCR Not detected, Stl Norovirus GI/GII PCR Not detected 06/10/25 05:25: WBC 10.5, RBC 3.91 L, Hgb 11.2 L D, Hct 33.1 L, MCV 84.7, MCH 28.4, MCHC 33.5, RDW 18.6 H, Plt Count 297, MPV 11.0 H, Neut % (Auto) 78.6, Lymph % (Auto) 9.1 L, [place] % (Auto) 11.3 H, Eos % (Auto) 0.1, Baso % (Auto) 0.3, Neut # (Auto) 8.2 H, Lymph # (Auto) 1.0, [place] # (Auto) 1.2 H, Eos # (Auto) 0.0, Baso # (Auto) 0.0, Sodium 136, Potassium 3.8, Chloride 106, Carbon Dioxide 24, Anion Gap 9.8, BUN 40 H, Creatinine 1.20 H, Estimated Creat Clear 32, Estimated GFR 42 L, Est GFR ( Amer) 51 L, Glucose 105 H D, Calcium 7.8 L, Magnesium 2.5 H, Total Bilirubin 0.6, AST 43 H, ALT 62 D, Alkaline Phosphatase 157 H, Total Protein 6.2 L, Albumin 3.2 L D, Globulin 3.0, Albumin/Globulin Ratio 1.1 Assessment and Plan *Assessment and plan (1) Opioid-induced constipation: Status: Acute Category: Medical Code(s): K59.03 - Drug induced constipation; T40.2X5A - Adverse effect of other opioids, initial encounter (2) Colon distention: Status: Acute Category: Medical Code(s): K63.89 - Other specified diseases of intestine (3) Lower abdominal pain: Status: Acute Category: Medical Code(s): R10.30 - Lower abdominal pain, unspecified (4) Elevated liver enzymes: Status: Acute Category: Medical Code(s): R74.8 - Abnormal levels of other serum enzymes (5) Dilated bile duct: Status: Acute Category: Medical Code(s): K83.8 - Other specified diseases of biliary tract (6) Dilated pancreatic duct: Status: Acute Category: Medical Code(s): K86.89 - Other specified diseases of pancreas Plan 1. Acute on chronic constipation exacerbated by opioids. The patient did have 2 small bowel movements with the suppository and enemas. I would aim to decompress the colon with full bowel preparation (GoLytely preparation) today. I will recommend Hemoccult testing. Her stool PCR testing was negative. I would then resume MiraLAX/ClearLax with the addition of Metamucil to each glass and she can use a xlpb-[id number]-uhhlalt laxative (Perdiem) 2-3 nights weekly as needed. Given the fact that she did have cecal diameter of 11 cm, I would like to repeat KUB before discharge to ensure that this is reducing in diameter because of the risk of ischemia and perforation. 2. Dilated bile duct and pancreatic duct with elevated liver chemistries and CT scan showing prominent ampulla. I would recommend CEA and CA 19-9 testing as well as MRCP before discharge. This certainly could be related to her prior cholecystectomy and the diameter of the common bile duct does increase after cholecystectomy and this is a compensatory dilation. This is much proposed to be because of the loss of the gallbladder's reservoir function. Bile duct and pancreatic ductal dilation can also occur with age as well as with use of opiates. However, given the escalation of her liver chemistries, I do feel that we should pursue further.
[2025-06-10 08:00] VITALS: BP 132/85; PULSE 72; RESP 18; TEMP 36.8; O2SAT 96
--- NOTE | 2025-06-10 08:46 | HMH.PHAINT1 ---
Pharmacy Intervention Comments: HOME MEDICATION LIST VERIFIED USING LIST FROM OUTPATIENT PHARMACY
[2025-06-10 09:29] LABS: Thyroid Stimulating Hormone 0.94 uIU/mL (0.465-4.68)
[2025-06-10] MEDS: APIXABAN 5MG TABLET 5 MG PO ×2 (10:00→20:18)
[2025-06-10] MEDS: SENNOSIDES 8.6MG/DOCUSATE 50MG TABLET 1 TAB PO ×2 (10:00→20:18)
[2025-06-10] MEDS: METOPROLOL SUCCINATE XL 50MG TABLET 50 MG PO (10:00)
[2025-06-10] MEDS: AMIODARONE 200MG TABLET 200 MG PO (10:01)
[2025-06-10] MEDS: PEG-ELECTROLYTE SOLN 4000ML BOTTLE 2000 ML PO (10:02)
[2025-06-10 10:15] LABS: Free T4 (Free Thyroxine) 2.68 ng/dl (0.78-2.19)
[2025-06-10] MEDS: HYDROCODONE/APAP 5/325 MG TABLET 1 TAB PO ×2 (12:53→20:22)
[2025-06-10] MEDS: ONDANSETRON 4MG/2ML VIAL 4 MG IV (12:54)
--- OUTSIDE RECORDS SUMMARY | 2025-06-10 15:42 | XMS_ITS | Clinical Summary ---
Author Organization [facility] Address [address] [id number] Care Team Providers Care Show Host Name Role Phone Alli Negrete MD Primary Care Provider [phone] Social History Tobacco Use Types Packs/Day Years [...] (2 of 2 - PCV) 04/21/2021 04/21/2020 [id number] Vaccine (6 - 2025-26 season) 2025 06/03/2023, [...] complete this topic Insurance MEDICARE Care Teams Show Host Relationship Specialty Start Date End Date Alli Negrete MD PCP - General 12/18/20
--- OUTSIDE RECORDS SUMMARY | 2025-06-10 15:42 | XMS_ITS | Clinical Summary ---
Author Organization [facility] Address [address] [place] [address] Care Team Providers Care Recruiter Name Role Phone Alli Negrete MD Primary Care Provider [phone] Allergies Active Allergy Reactions Criticality Noted Date [...] 08/17/2022, 12/08/2021, 10/16/2020, Additional history exists [place] [address] [place] [address] MEDICARE ADVANTAGE PPO Care Teams Recruiter Relationship Specialty Start Date End Date Alli Negrete MD [address] [place], [place] [id number] PCP - General Family Medicine 03/30/16
--- OUTSIDE RECORDS SUMMARY | 2025-06-10 15:43 | XMS_ITS | Clinical Summary ---
Author Organization [facility] Address [address] [place] [address] Phone Care Team Providers Care Diet Aide Name Role Phone Alli Negrete MD Primary Care Provider [phone] Jai Sena MD Unavailable [phone] Allergies Active Allergy Reactions Criticality Noted [...] patient's age to complete this topic Insurance [address] MEDICARE PPO MR [employer] MEDICARE PPO MR [employer] MEDICARE PPO MR Care Teams Diet Aide Relationship Specialty Start Date End Date Alli Negrete MD PCP - General Family Medicine 07/16/14 Jai Sena MD [address] [place] [address] Physician Internal Medicine-Interventional Cardiology 08/14/14
[2025-06-10 16:00] VITALS: BP 138/65; PULSE 59; RESP 20; TEMP 36.4; O2SAT 92
[2025-06-10 16:33] LABS: Occult Blood,Stool Negative (Negative)
--- NOTE | 2025-06-10 17:10 | EXP.PN ---
Subjective *Date: 06/10/25 *Time: 17:10 Interval history: Has not had a significant bowel movement yet, continue GoLytely. Started lactulose. Follow-up MRCP in the morning. Exam Data for Last 24 hours Vital signs and Labs for Last 24 Hours: Temp Pulse Resp BP Pulse Ox O2 Del Method O2 Flow Rate 97.6 F 59 L 20 138/65 92 L Nasal Cannula 2 06/10/25 16:00 06/10/25 16:00 06/10/25 16:00 06/10/25 16:00 06/10/25 16:00 06/10/25 16:00 06/10/25 16:00 Laboratory Results - last 24 hr 06/09/25 18:32: ESR 26, C-Reactive Protein 30.9 H 06/09/25 19:25: Stool Occult Blood Negative, Stl C. cayetanensis PCR Not detected, Stool Rotavirus (PCR) Not detected, Stl Adenov F 40/41 PCR Not detected, Stool Astrovirus (PCR) Not detected, Stool Campylobacter PCR Not detected, Stl C.difficile Tox PCR Not detected, Stool Cryptosporidium PCR Not detected, Stl E.coli Shiga Tox PCR Not detected, Stool E coli O157 PCR Not detected, Stl Enterotoxigenic E PCR Not detected, Stool EPEC (PCR) Not detected, Stool EAEC (PCR) Not detected, Stl E. histolytica PCR Not detected, Stool Giardia Lamblia PCR Not detected, Stool Salmonella PCR Not detected, Stool Sapovirus (PCR) Not detected, Stl P. shigelloides PCR Not detected, Stl Shigella/EIEC PCR Not detected, St Y.enterocolitica PCR Not detected, Stool Vibrio (PCR) Not detected, Stl Vibrio cholerae PCR Not detected, Stl Norovirus GI/GII PCR Not detected 06/10/25 05:25: WBC 10.5, RBC 3.91 L, Hgb 11.2 L D, Hct 33.1 L, MCV 84.7, MCH 28.4, MCHC 33.5, RDW 18.6 H, Plt Count 297, MPV 11.0 H, Neut % (Auto) 78.6, Lymph % (Auto) 9.1 L, [place] % (Auto) 11.3 H, Eos % (Auto) 0.1, Baso % (Auto) 0.3, Neut # (Auto) 8.2 H, Lymph # (Auto) 1.0, [place] # (Auto) 1.2 H, Eos # (Auto) 0.0, Baso # (Auto) 0.0, Sodium 136, Potassium 3.8, Chloride 106, Carbon Dioxide 24, Anion Gap 9.8, BUN 40 H, Creatinine 1.20 H, Estimated Creat Clear 32, Estimated GFR 42 L, Est GFR ( Amer) 51 L, Glucose 105 H D, Calcium 7.8 L, Magnesium 2.5 H, Total Bilirubin 0.6, AST 43 H, ALT 62 D, Alkaline Phosphatase 157 H, Total Protein 6.2 L, Albumin 3.2 L D, Globulin 3.0, Albumin/Globulin Ratio 1.1, TSH 0.94, Free T4 2.68 H I & O for Last 24 hours: Intake & Output 06/07/25 06/08/25 06/09/25 06/10/25 23:59 22:59 23:59 23:59 Intake Total 1112.5 / 1232.5 1057.5 / 1057.5 Output Total 0 / 0 0 / 0 Balance 1112.5 / 1232.5 1057.5 / 1057.5 Weight 61.235 kg 62.051 kg Constitutional Constitutional: no acute distress *Routine HEENT Exam Head: Present normocephalic Eye: Present EOMI and PERRL ENT: Present mucous membranes moist *Routine Neck Exam Neck: Present supple; Absent lymphadenopathy *Routine Respiratory Exam Respiratory: Present CTA bilaterally *Routine Cardiovascular Exam Cardiovascular: Present RRR *Routine Abdominal Exam Abdominal: Present soft and normoactive bowel sounds; Absent tenderness *Routine Extremities Exam Extremities: Absent cyanosis, clubbing or edema *Routine Skin Exam Skin: Present warm; Absent rash *Routine Neurological Exam Neurological: Present alert and oriented X3 Assessment and Plan *Assessment and plan (1) Ileus: Status: Acute Category: Medical Code(s): K56.7 - Ileus, unspecified (2) LELA (acute kidney injury): Status: Acute Category: Medical Code(s): N17.9 - Acute kidney failure, unspecified (3) Constipation: Status: Acute Category: Medical Code(s): K59.00 - Constipation, unspecified (4) Essential hypertension: Status: Chronic Category: Medical Code(s): I10 - Essential (primary) hypertension (5) Atrial fibrillation: Status: Acute Qualifiers: Atrial fibrillation type: unspecified Qualified Code(s): I48.91 - Unspecified atrial fibrillation Category: Medical Code(s): I48.91 - Unspecified atrial fibrillation (6) Left lower lobe pneumonia: Status: Acute Category: Medical Code(s): J18.9 - Pneumonia, unspecified organism Plan Fabby Sidhu 89-year-old female who presented with 9 days of no bowel movement. Has significant distention of colon. GI was consulted from the ER, recommended admission and bowel regimen. Discussed case with ER physician, request admission for further management. I decided to admit to treat aggressively with enemas and suppositories. Will monitor for improvement in renal function with gentle rehydration. #Acute hypoxic respiratory failure #Community-acquired pneumonia - Chest x-ray per my review with left lower lobe consolidation. WBC improved from 13-10.5 today. New oxygen requirement of 2 L. Satting 85% on room air during my exam. - Continue ceftriaxone 1 g daily. Plan to treat for 5 days - Continue supplemental oxygen as needed for goal sats greater than 90%. Currently on 2 L oxygen. Wean as tolerated ? Follow-up sputum cultures. Ileus Constipation #Dilated CBD, pancreatic duct - Ileus secondary to pain and opiates along with chronic constipation. - Per my review of CT of abdomen, has severe distention of colon. Distention on exam improving today. ? Drinking GoLytely, received mineral oil enema without a significant bowel movement yet. Continue to monitor. ? GI consulted, recommended GoLytely and MRCP in the morning for dilated biliary tree. LFTs improving. ? Will order for soapsuds enema at 8 PM if no bowel movement. Started lactulose 20 mg 4 times daily. Mild LELA - Creatinine 1.2, BUN 47. Consistent with prerenal state. Administered 1 L in the ER. Tolerating p.o. intake, will discontinue IV fluids. - Repeat CBC, CMP, magnesium ordered for the morning. #A-fib #Thyroid, liver dysfunction ? Amiodarone likely closely multiorgan dysfunction. Free T4 elevated since last year, TSH normal. ? Discussed with cardiology, will discontinue amiodarone, continue Eliquis, metoprolol. Resume home medications for chronic conditions including A-fib and hypertension as follows: Eliquis 5 mg twice daily, Lipitor 40 mg daily, Plavix 75 mg daily, metoprolol succinate 50 mg daily, nifedipine 30 mg extended release daily Full code Eliquis 5 mg twice daily Sips and chips
--- NOTE | 2025-06-10 17:42 | PC.WOUNDNOTE ---
SMALL BUSTED BLISTER AREA NOTED ON BOTTOM. PATIENT STATES SHE USES HEATING PAD HERE FREQUENTLY.
--- NOTE | 2025-06-10 18:29 | PC.NURSE ---
soap suds enema given at 1530. patient has had several copious loose BMs this shift, see chart
[2025-06-10 19:48] VITALS: BP 129/53; PULSE 59; RESP 16; TEMP 36.9; O2SAT 91
[2025-06-11] MEDS: HYDROCODONE/APAP 5/325 MG TABLET 1 TAB PO ×2 (00:40→08:49)
[2025-06-11 04:00] VITALS: BP 131/48; PULSE 56; RESP 16; TEMP 36.9; O2SAT 92; BMI 23.9
--- NOTE | 2025-06-11 06:00 | MR_ITS ---
FINAL REPORT TECHNIQUE: Multiplanar and multisequence imaging was obtained before and after the intravenous injection of gadolinium contrast. MRCP images were obtained. CLINICAL HISTORY: Dilationof bile duct/pancreatic duct/increased LFT COMPARISON: 06/09/2025 FINDINGS: There are small bilateral pleural effusions and bilateral lower lobe airspace disease, similar to recent exam. There is a small T2 hyperintense and T1 hypointense lesion in the right lobe of the liver measuring 11 mm which does not enhance most consistent with a cyst. There is intrahepatic and extrahepatic biliary dilatation. The gallbladder is absent. The spleen is normal in size and signal intensity. The adrenal glands and pancreas are without acute abnormality. Multiple bilateral renal cysts are identified. There is persistent colonic dilatation. Postcontrast images reveal no abnormal enhancement. On the MRCP images, there is intrahepatic and extrahepatic biliary ductal dilatation. There is a low medial insertion of a cystic duct. No common duct filling defect or stricture is identified. There is pancreatic ductal dilatation to the level of the ampulla. There is a small amount of ascites. IMPRESSION: Intra and extrahepatic biliary ductal dilatation without common duct filling defect or visualized stricture. Pancreatic ductal dilatation, small ampullary lesion is not excluded. Small amount of ascites. Bilateral renal cysts. Reviewed, Interpreted and Dictated by Minnie Pham MD Transcribed by Porsha Ledesma Authenticated and [facility]
[2025-06-11 06:15] LABS: Hematocrit 31.4 % (37.0-47.0); Hemoglobin 10.4 g/dL (12.2-16.2); Immature Granulocytes % 0.5 %; Mean Corpuscular HGB Conc 33.1 g/dL (31.8-35.4); Mean Corpuscular Hemoglobin 28.3 pg (27.0-31.2); Mean Corpuscular Volume 85.3 fl (81-99); Nucleated Red Blood Cells % 0 %; Platelet Count 278 K/mm3 (142-424); Red Blood Count 3.68 M/mm3 (4.20-5.40); Red Cell Distribution Width-SD 57.1 fL; White Blood Count 8.0 K/mm3 (4.8-10.8)
[2025-06-11 06:20] LABS: Albumin Level 3.0 g/dl (3.5-5.0); Chloride 105 mmol/L (98-107)
[2025-06-11 06:21] LABS: Potassium 3.3 mmoL/L (3.5-5.1); Sodium 136 mmol/L (136-145)
[2025-06-11 06:23] LABS: Alanine Aminotransferase 50 U/L (12-78); Albumin/Globulin Ratio 1.0 (1.1-1.8); Alkaline Phosphatase 131 U/L (38-126); Anion Gap 7.3 mEq/L (5-15); Aspartate Amino Transferase 36 U/L (14-36); Bilirubin,Total 0.5 mg/dl (0.2-1.3); Blood Urea Nitrogen 33 mg/dl (7-17); Carbon Dioxide 27 mmol/L (22.0-30.0); Creatinine Clearance Estimated 39 mL/min (50-200); Creatinine,Serum 1.00 mg/dl (0.52-1.04); Estimated Glomerular Filt Rate 52 ml/min (>60); GFR (African American) 63 ML/MIN (>60); Globulin 2.9 g/dL (1.3-3.2); Total Protein,Serum 5.9 g/dl (6.3-8.2)
[2025-06-11 06:24] LABS: Calcium 8.0 mg/dl (8.4-10.2); Glucose 80 mg/dl (74-100); Magnesium 2.3 mg/dl (1.6-2.3)
[2025-06-11 07:22] VITALS: BP 157/57; PULSE 60; RESP 16; TEMP 36.6; O2SAT 94
[2025-06-11] MEDS: GADOTERIDOL INJ 20ML SYRINGE 12 ML IV (08:34)
[2025-06-11] MEDS: METOPROLOL SUCCINATE XL 50MG TABLET 50 MG PO (08:49)
[2025-06-11] MEDS: APIXABAN 5MG TABLET 5 MG PO ×2 (08:49→20:42)
[2025-06-11] MEDS: SENNOSIDES 8.6MG/DOCUSATE 50MG TABLET 1 TAB PO ×2 (08:49→20:42)
--- NOTE | 2025-06-11 11:51 | HMH.PTEV ---
Physical Therapy Evaluation Rehab PT IP Evaluation Start: 06/11/25 10:44 Freq: ONCE Status: Active Protocol: Document 06/11/25 11:48 DEREK (Rec: 06/11/25 11:51 DEREK [id number]) Subjective/History History History Per H&P: Ms. Sidhu is an 89-year-old female with history of A-fib, hypertension, history of cancer who has had worsening back pain over the past few weeks. Went to the ER last week where she was started on some opiates. States she has not had a bowel movement since that visit to the ER. Reports however that she had not had a bowel movement 3 to 4 days prior to starting opiate therapy. Has been about 9 days since her last bowel movement. Abdomen has become more distended. She is passing gas occasionally. Complains of some nausea but no felipe emesis. Her pain has worsened over the past day or 2. Family encouraged her to come to the ER for evaluation. She has not been eating or drinking normally since last due to pain and distention in her belly. Denies felipe fever but has had some occasional chills. Is alert and oriented x 3. On workup in the ER, found to have a white count of 13. Abdomen distended with CT of abdomen showing severe distention of colon upwards of 11 cm. Also has a large cyst on her left kidney. Concern for left lower lobe pneumonia on chest imaging with new oxygen requirement. GI was consulted who recommended enemas and suppositories. Medicine consulted for admission and further management. Subjective Subjective Pt reports she lives alone in a home with 1 ROEL. Pt normally IND with all mobility without AD use. Pt still drives. Pt owns a RW but does not use it. Pt reports she does not have access to 27/02 family assist. Pt reports her primary limitations are BLE weakness and LBP. [facility] How much help from another person do you currently need... Turning from your A little back to your side while in a flat bed without using bedrails? Moving from lying on A little back to sitting on the side of a flat bed without using bedrails? Moving to and from a A little bed to a chair ( including a wheelchair)? Standing up from a A little chair using your arms? (e.g., wheelchair, bedside chair) Walking in hospital A little room? Climbing 3-5 steps A little with a railing? Mobility Score [address] [facility] Mobility 6 Walk 10 steps or more Mobility Calculator Rehab PT IP Eval Objective Appearance Patient Behavior Appropriate,Cooperative Patient Orientation Person,Situation Difficulty following none instructions Speech Pattern Clear Ambulation Patient Able to Yes Ambulate Ambulation Observation Ambulation Distance 14 (feet) Ambulation Assistive Rolling Walker Device Ambulation Ability Contact Guard/Hand Hold Balance Ability to Arise Able, uses arms to help Sitting Balance Steady, safe Standing Balance Unsteady Dynamic Sitting Good Balance Ability Dynamic Standing Poor Balance Ability Transfers Bed Transfer Ability Moderate x 1 (50% assist) Sit to Stand Bed Minimal x 1 (25% assist) Transfer Ability Rehab PT IP prob,goals,plan Problems Date of Evaluation: 06/11/25 PT IP Problems Bed Mobility,Transfers,Gait,Balance,Self care,Safety Rehab Potential Rehab Potential Good Plan PT Intervention Plan Bed Mobility,Transfers,Gait,Balance,Self care,Safety, Therapeutic Exercise Other Intervention 1-2 times Plan PT Plan Frequency Daily Duration LOS Discharge Goals Bed Transfer Ability Supervision/Stand by Sit to Stand Chair Supervision/Stand by Transfer Ability Ambulation Distance 40 (feet) Discharge Plan PT Discharge Plan Initial physical therapy evaluation performed. Patient presents below baseline at this time in functional mobility, transfers, and strength. Pt not safe to return home at this time d/t current level of functional mobility. PT recommending inpatient rehabilitation facility (IRF) placement upon d/c from [facility]. Pt would benefit from skilled PT while at [facility] to prevent further functional decline and maximize safety with mobility. Eval Complexity Eval Charge Codes 35448 - Moderate Complexity PHYSICIAN CERTIFICATION: I certify the specified therapy services for Fabby Sidhu are required, authorized, and reviewed every 30 days.
--- NOTE | 2025-06-11 12:11 | SW/DCPLANNER ---
Addendum entered by Tania Vergara 06/12/25 13:36: Patient will discharge to [facility] today. Addendum entered by Tania Vergara 06/12/25 11:57: Patient has been approved SNF level of care for today. Addendum entered by Tania Vergara 06/11/25 14:12: Kamini adame/ [facility] can accept this patient and will start auth today. Original Note: I spoke w/ patient and her daughter regarding plans once medically stable for discharge. PT evaluated patient and recommended SNF level of care. Patient is agreeable to placement and prefers placement at [facility] or [facility]. Patient information will be faxed to Kamini adame/ [facility] today. Discharge date is unknown at this time. CM will continue to follow up.
[2025-06-11 12:13] LABS: CA 19-9 25 U/mL (0-35); CEA 5.3 ng/mL (0.0-4.7)
--- NOTE | 2025-06-11 13:52 | HMH.OTEV ---
OT Evaluation Rehab OT IP Evaluation Start: 06/11/25 10:44 Freq: ONCE Status: Active Protocol: Document 06/11/25 13:47 [facility] (Rec: 06/11/25 13:51 [facility] [id number]) Rehab OT IP Assessment Subjective History Pt oriented x 3 on arrival. Pt agreeable to engage in therapy evaluation. Pt admitted on 06/09/25 due to constipation. History and physical: Ms. Sidhu is an 89-year-old female with history of A-fib, hypertension, history of cancer who has had worsening back pain over the past few weeks. Went to the ER last week where she was started on some opiates. States she has not had a bowel movement since that visit to the ER. Reports however that she had not had a bowel movement 3 to 4 days prior to starting opiate therapy. Has been about 9 days since her last bowel movement. Abdomen has become more distended. She is passing gas occasionally. Complains of some nausea but no felipe emesis. Her pain has worsened over the past day or 2. Family encouraged her to come to the ER for evaluation. She has not been eating or drinking normally since last due to pain and distention in her belly. Denies felipe fever but has had some occasional chills. Is alert and oriented x 3. On workup in the ER, found to have a white count of 13. Abdomen distended with CT of abdomen showing severe distention of colon upwards of 11 cm. Also has a large cyst on her left kidney. Concern for left lower lobe pneumonia on chest imaging with new oxygen requirement. GI was consulted who recommended enemas and suppositories. Medicine consulted for admission and further management. Subjective Prior to being in the hospital, pt lived at home alone. Normally pt is independent with all ADLs and simple IADLs. Pt did not require any type of AE during functional transfers. Pt still drives. Daughter assists with heavier IADLs. Pt does have 13 steps at home that she does go up and down multiple times a day. Objective Patient Orientation Person,Place,Birthday Right Upper Min Limitation <25% Extremity Gross ROM Left Upper Extremity Min Limitation <25% Gross ROM Shoulder ROM Muscle Weakness Limitations Elbow ROM Muscle Weakness Limitations Wrist Limitations of Muscle Weakness Range of Motion Bed Mobility bed mobility-scooting,bed mobility - supine/sit Assist Level Moderate x 1 (50% assist) Transfer Training Sit/Stand Transfer Assist Level Minimal x 2 (25% assist) Rehab OT IP prob,goals,plan Problems Date of Evaluation: 06/11/25 OT IP Problems Bed Mobility,Transfers,Balance,Self care,Safety Rehab Potential Rehab Potential Good Equipment Needs Assistive Devices Rolling / Wheeled Walker Plan OT intervention Plan Bed Mobility,Transfers,Balance,Self care,Safety, Therapeutic Exercise OT Plan Frequency Daily Duration LOS Discharge Goals Bed Mobility Ability Assistance x1 Sit to Stand Chair Minimal x 1 (25% assist) Transfer Ability Chair Transfer Minimal x 1 (25% assist) Ability Chair Transfer Sit to/from Ambulatory Technique Chair Transfer Rolling Walker Assistive Devices Lower Body Dressing Moderate Assistance Ability Upper Body Dressing Minimal Assistance Ability Performing Toilet Minimal Assistance Hygiene Ability Overall Commode/ Contact Guard,Minimal Assistance Toilet Transfer Ability Commode/Toilet Sit to/from Ambulatory Transfer Technique Discharge Plan OT Discharge Plan Pt will continue to be seen for OT services while at [facility]. Pt would benefit most from short term rehab at SNF following discharge from hospital. continued skilled therapy is important in order for patient to improve strength, safety, endurance, ADL independence, and functional transfers to reach PLOF. Eval Complexity Eval Charge Codes 88118 - Moderate Complexity PHYSICIAN CERTIFICATION: I certify the specified therapy services for Fabby Sidhu are required, authorized, and reviewed every 30 days.
[2025-06-11] MEDS: KETOROLAC 15MG/ML VIAL 15 MG IV (15:44)
[2025-06-11 16:00] VITALS: BP 134/65; PULSE 62; RESP 16; TEMP 37; O2SAT 92
--- NOTE | 2025-06-11 16:52 | EXP.PN ---
Subjective *Date: 06/11/25 *Time: 16:52 Interval history: The patient has had complete colonic evacuation after GoLytely bowel preparation and has had good bowel movements with decompression of the abdomen and reduce tightness, bloating and abdominal pain. She feels well presently. She did complete MRCP and reports no right upper quadrant abdominal pain. She is tolerating liquid diet presently. Exam Data for Last 24 hours Vital signs and Labs for Last 24 Hours: Temp Pulse Resp BP Pulse Ox O2 Del Method O2 Flow Rate 98.6 F 62 16 134/65 92 L Nasal Cannula 2 06/11/25 16:00 06/11/25 16:00 06/11/25 16:00 06/11/25 16:00 06/11/25 16:00 06/11/25 16:00 06/11/25 16:00 Laboratory Results - last 24 hr 06/10/25 05:25: Carcinoembryonic Ag 5.3 H, CA 19-9 Antigen 06/11/25 05:24: WBC 8.0, RBC 3.68 L, Hgb 10.4 L, Hct 31.4 L, MCV 85.3, MCH 28.3, MCHC 33.1, RDW 18.5 H, Plt Count 278, MPV 11.1 H, Neut % (Auto) 75.8, Lymph % (Auto) 10.3, [place] % (Auto) 12.2 H, Eos % (Auto) 0.9, Baso % (Auto) 0.3, Neut # (Auto) 6.0, Lymph # (Auto) 0.8, [place] # (Auto) 1.0, Eos # (Auto) 0.1, Baso # (Auto) 0.0, Sodium 136, Potassium 3.3 L, Chloride 105, Carbon Dioxide 27, Anion Gap 7.3, BUN 33 H, Creatinine 1.00, Estimated Creat Clear 39, Estimated GFR 52 L, Est GFR ( Amer) 63 D, Glucose 80 D, Calcium 8.0 L, Magnesium 2.3, Total Bilirubin 0.5, AST 36, ALT 50, Alkaline Phosphatase 131 H, Total Protein 5.9 L, Albumin 3.0 L, Globulin 2.9, Albumin/Globulin Ratio 1.0 L I & O for Last 24 hours: Intake & Output 06/08/25 06/09/25 06/10/2506/11/25 22:59 23:59 23:59 23:59 Intake Total 1112.5 / 1232.5 1107.5 / 1347.5 240 / 240 Output Total 0 / 0 0 / 0 0 / 0 Balance 1112.5 / 1232.5 1107.5 / 1347.5 240 / 240 Weight 135 lb 136 lb 12.8 oz 140 lb 3.2 oz *Routine Abdominal Exam Abdominal: Present soft and normoactive bowel sounds Comments: Normoactive bowel sounds, much softer abdomen with no tenderness, benign abdomen Assessment and Plan *Assessment and plan (1) Colon distention: Status: Acute Category: Medical Code(s): K63.89 - Other specified diseases of intestine (2) Opioid-induced constipation: Status: Acute Category: Medical Code(s): K59.03 - Drug induced constipation; T40.2X5A - Adverse effect of other opioids, initial encounter (3) Fecal impaction: Status: Acute Category: Medical Code(s): K56.41 - Fecal impaction (4) Dilated bile duct: Status: Acute Category: Medical Code(s): K83.8 - Other specified diseases of biliary tract (5) Dilated pancreatic duct: Status: Acute Category: Medical Code(s): K86.89 - Other specified diseases of pancreas (6) Elevated liver enzymes: Status: Acute Category: Medical Code(s): R74.8 - Abnormal levels of other serum enzymes Plan 1. Fecal impaction with colonic distention (cecum 11 cm). The patient has decompressed with the GoLytely with complete evacuation and softening of the abdomen. I would continue combined MiraLAX plus Metamucil fiber bowel regimen and avoidance of opiates. 2. Dilated bile duct and pancreatic duct. MRCP shows no stricture or CBD stone or mass (small ampullary lesion could not be excluded). The patient's CA 19-9 was 25 (normal). The patient is clinically asymptomatic and her liver chemistries have improved and close to the normal range (alkaline phosphatase 131 (down from 157)) with normal bilirubin and transaminases today. I do feel that this primarily represents dilation related to age, cholecystectomy and possibly opiates. I would like for the patient to follow-up (Lucy CARMICHAEL in 3 to 4 weeks) as outpatient.
[2025-06-11 20:00] VITALS: BP 137/63; PULSE 60; RESP 14; TEMP 37.1; O2SAT 90
--- NOTE | 2025-06-11 21:51 | P.PN_ITS ---
Subjective *Date: 06/12/25 *Time: 11:08 Interval history: Patient had a large bowel movement yesterday, feels better today. However continues to have acute on chronic low back pain. Will trial Toradol. Discussed with Sukhdev, MRCP likely shows chronic findings. LFTs improving, no abdominal pain. Tolerating diet. No plans for ERCP. Pending placement. Exam Data for Last 24 hours Vital signs and Labs for Last 24 Hours: Temp Pulse Resp BP Pulse Ox O2 Del Method O2 Flow Rate 98.7 F 60 14 137/63 90 L Nasal Cannula 2 06/11/25 20:00 06/11/25 20:00 06/11/25 20:00 06/11/25 20:00 06/11/25 20:00 06/11/25 20:00 06/11/25 20:00 Laboratory Results - last 24 hr 06/10/25 05:25: Carcinoembryonic Ag 5.3 H, CA 19-9 Antigen 25 06/11/25 05:24: WBC 8.0, RBC 3.68 L, Hgb 10.4 L, Hct 31.4 L, MCV 85.3, MCH 28.3, MCHC 33.1, RDW 18.5 H, Plt Count 278, MPV 11.1 H, Neut % (Auto) 75.8, Lymph % (Auto) 10.3, [place] % (Auto) 12.2 H, Eos % (Auto) 0.9, Baso % (Auto) 0.3, Neut # (Auto) 6.0, Lymph # (Auto) 0.8, [place] # (Auto) 1.0, Eos # (Auto) 0.1, Baso # (Auto) 0.0, Sodium 136, Potassium 3.3 L, Chloride 105, Carbon Dioxide 27, Anion Gap 7.3, BUN 33 H, Creatinine 1.00, Estimated Creat Clear 39, Estimated GFR 52 L , Est GFR ( Amer) 63 D, Glucose 80 D, Calcium 8.0 L, Magnesium 2.3, Total Bilirubin 0.5, AST 36, ALT 50, Alkaline Phosphatase 131 H, Total Protein 5.9 L, Albumin 3.0 L, Globulin 2.9, Albumin/Globulin Ratio 1.0 L I & O for Last 24 hours: Intake & Output 06/08/25 06/09/25 06/10/2506/11/25 22:59 23:59 23:59 23:59 Intake Total 1112.5 / 1232.5 1107.5 / 1347.5 290 / 290 Output Total 0 / 0 0 / 0 0 / 0 Balance 1112.5 / 1232.5 1107.5 / 1347.5 290 / 290 Weight 61.235 kg 62.051 kg 63.594 kg Constitutional Constitutional: no acute distress and chronically ill appearing *Routine HEENT Exam Head: Present normocephalic Eye: Present EOMI and PERRL ENT: Present mucous membranes moist *Routine Neck Exam Neck: Present supple; Absent lymphadenopathy *Routine Respiratory Exam Respiratory: Present CTA bilaterally *Routine Cardiovascular Exam Cardiovascular: Present RRR *Routine Abdominal Exam Abdominal: Present soft and normoactive bowel sounds Comments: Normoactive bowel sounds, much softer abdomen with no tenderness, benign abdomen *Routine Extremities Exam Extremities: Absent cyanosis, clubbing or edema *Routine Skin Exam Skin: Present warm; Absent rash *Routine Neurological Exam Neurological: Present alert and oriented X3 Assessment and Plan *Assessment and plan (1) Ileus: Status: Acute Category: Medical Code(s): K56.7 - Ileus, unspecified (2) LELA (acute kidney injury): Status: Acute Category: Medical Code(s): N17.9 - Acute kidney failure, unspecified (3) Constipation: Status: Acute Category: Medical Code(s): K59.00 - Constipation, unspecified (4) Essential hypertension: Status: Chronic Category: Medical Code(s): I10 - Essential (primary) hypertension (5) Atrial fibrillation: Status: Acute Qualifiers: Atrial fibrillation type: unspecified Qualified Code(s): I48.91 - Unspecified atrial fibrillation Category: Medical Code(s): I48.91 - Unspecified atrial fibrillation (6) Left lower lobe pneumonia: Status: Acute Category: Medical Code(s): J18.9 - Pneumonia, unspecified organism Plan Fabby Sidhu 89-year-old female who presented with 9 days of no bowel movement. Has significant distention of colon. GI was consulted from the ER, recommended admission and bowel regimen. Discussed case with ER physician, request admission for further management. I decided to admit to treat aggressively with enemas and suppositories. Will monitor for improvement in renal function with gentle rehydration. #Acute hypoxic respiratory failure #Community-acquired pneumonia - Chest x-ray per my review with left lower lobe consolidation. WBC stable at 8 today, peaked at 13. New oxygen requirement of 2 L. - Continue ceftriaxone 1 g daily. Plan to treat for 5 days. - Continue supplemental oxygen as needed for goal sats greater than 90%. Currently on 2 L oxygen. Wean as tolerated. ? Follow-up sputum cultures. #Ileus #Constipation #Dilated CBD, pancreatic duct - Ileus secondary to pain and opiates along with chronic constipation. - Per my review of CT of abdomen, has severe distention of colon. Distention improving today, especially with large bowel movement yesterday. ? GI consulted, MRCP shows biliary and pancreatic duct dilatation in the setting of cholecystectomy, opioid use. No plans for intervention per GI. LFTs improving. #Mild LELA - Creatinine improved from 1.2-1.0. #A-fib #Thyroid, liver dysfunction ? Amiodarone likely closely multiorgan dysfunction. Free T4 elevated since last year, TSH normal. ? Discussed with cardiology, will discontinue amiodarone, continue Eliquis, metoprolol. #Chronic low back pain ? History of low back, pelvic trauma after horse injury. Has been using hydrocodone, continues to have low back pain. Started Toradol. ? Plan to refer to pain management for further management. Resume home medications for chronic conditions including A-fib and hypertension as follows: Eliquis 5 mg twice daily, Lipitor 40 mg daily, Plavix 75 mg daily, metoprolol succinate 50 mg daily, nifedipine 30 mg extended release daily Full code Eliquis 5 mg twice daily Low fiber diet
[2025-06-12 04:00] VITALS: BP 147/57; PULSE 58; RESP 14; TEMP 36.8; O2SAT 90; BMI 23.4
[2025-06-12 06:20] LABS: Hematocrit 35.0 % (37.0-47.0); Hemoglobin 11.3 g/dL (12.2-16.2); Immature Granulocytes % 0.8 %; Mean Corpuscular HGB Conc 32.3 g/dL (31.8-35.4); Mean Corpuscular Hemoglobin 27.8 pg (27.0-31.2); Mean Corpuscular Volume 86.2 fl (81-99); Nucleated Red Blood Cells % 0 %; Platelet Count 297 K/mm3 (142-424); Red Blood Count 4.06 M/mm3 (4.20-5.40); Red Cell Distribution Width-SD 58.4 fL; White Blood Count 8.3 K/mm3 (4.8-10.8)
[2025-06-12 06:35] LABS: Alanine Aminotransferase 52 U/L (12-78); Albumin Level 2.8 g/dl (3.5-5.0); Albumin/Globulin Ratio 0.7 (1.1-1.8); Alkaline Phosphatase 196 U/L (38-126); Anion Gap 9.2 mEq/L (5-15); Aspartate Amino Transferase 47 U/L (14-36); Bilirubin,Total 0.5 mg/dl (0.2-1.3); Blood Urea Nitrogen 31 mg/dl (7-17); Calcium 8.5 mg/dl (8.4-10.2); Carbon Dioxide 24 mmol/L (22.0-30.0); Chloride 104 mmol/L (98-107); Creatinine Clearance Estimated 38 mL/min (50-200); Creatinine,Serum 1.00 mg/dl (0.52-1.04); Estimated Glomerular Filt Rate 52 ml/min (>60); GFR (African American) 63 ML/MIN (>60); Globulin 3.8 g/dL (1.3-3.2); Glucose 85 mg/dl (74-100); Magnesium 2.1 mg/dl (1.6-2.3); Potassium 3.2 mmoL/L (3.5-5.1); Sodium 134 mmol/L (136-145); Total Protein,Serum 6.6 g/dl (6.3-8.2)
[2025-06-12 07:11] LABS: NT Pro Brain Natriuretic Pep. 1380 pg/mL (0-450)
--- NOTE | 2025-06-12 07:55 | EXP.PHA.PN ---
Subjective *Date: 06/12/25 *Time: 07:55 Medical Exam Vital signs and Labs for Last 24 Hours: Vital Signs Temp Pulse Resp BP Pulse Ox O2 Del Method O2 Flow Rate 06/12/25 06:14 Room Air 2 06/12/25 05:00 Nasal Cannula 2 06/12/25 04:00 98.2 F 58 L 14 147/57 H 90 L Nasal Cannula 2 06/12/25 03:00 Nasal Cannula 2 06/12/25 01:00 Nasal Cannula 2 06/11/25 23:00 Nasal Cannula 2 06/11/25 21:00 Nasal Cannula 2 06/11/25 20:00 Nasal Cannula 2 06/11/25 20:00 98.7 F 60 14 137/63 90 L Nasal Cannula 2 06/11/25 18:29 Nasal Cannula 2 06/11/25 17:00 Nasal Cannula 2 06/11/25 16:00 98.6 F 62 16 134/65 92 L Nasal Cannula 2 06/11/25 15:00 Nasal Cannula 2 06/11/25 12:24 Nasal Cannula 2 06/11/25 11:00 Nasal Cannula 2 06/11/25 09:00 Nasal Cannula 2 06/11/25 08:00 Nasal Cannula 2 Intake and Output 06/11/25 06/11/25 06/12/25 15:59 23:59 07:59 Intake Total 50 / 290 Output Total 0 / 0 Balance 50 / 290 Intake: Intake, Total IV Amount 50 / 50 Ceftriaxone Sodium 1 gm In 0.9 50 / 50 % Sodium Chloride 50 ml @ 100 mls/hr IV Q24H [facility] Rx#:[id number] Output: Output, Urine Amount 0 / 0 Other: Number of Unmeasured Voids 1 Number of Bowel Movements 1 Weight 62.278 kg Patient Weight 06/12/25 23:59 Weight 62.278 kg Laboratory Results - last 24 hr 06/10/25 05:25: Carcinoembryonic Ag 5.3 H, CA 19-9 Antigen 25 06/12/25 05:27: WBC 8.3, RBC 4.06 L, Hgb 11.3 L, Hct 35.0 L, MCV 86.2, MCH 27.8, MCHC 32.3, RDW 18.8 H, Plt Count 297, MPV 11.0 H, Neut % (Auto) 73.9, Lymph % (Auto) 12.1, [place] % (Auto) 11.8 H, Eos % (Auto) 1.0, Baso % (Auto) 0.4, Neut # (Auto) 6.2, Lymph # (Auto) 1.0, [place] # (Auto) 1.0, Eos # (Auto) 0.1, Baso # (Auto) 0.0, Sodium 134 L, Potassium 3.2 L, Chloride 104, Carbon Dioxide 24, Anion Gap 9.2, BUN 31 H, Creatinine 1.00, Estimated Creat Clear 38, Estimated GFR 52 L, Est GFR ( Amer) 63, Glucose 85, Calcium 8.5, Magnesium 2.1, Total Bilirubin 0.5, AST 47 H D, ALT 52, Alkaline Phosphatase 196 H, NT-Pro-B Natriuret Pep 1380 H, Total Protein 6.6, Albumin 2.8 L, Globulin 3.8 H, Albumin/Globulin Ratio 0.7 L I & O for Labs for Last 24 Hours: Intake & Output 06/09/25 06/10/25 06/11/25 06/12/25 23:59 23:59 23:59 23:59 Intake Total 1112.5 / 1232.5 1107.5 / 1347.5 290 / 290 Output Total 0 / 0 0 / 0 0 / 0 Balance 1112.5 / 1232.5 1107.5 / 1347.5 290 / 290 Weight 61.235 kg 62.051 kg 63.594 kg 62.278 kg The patient's infection will respond to the chosen ABx?: Yes (SPUTUM UNCOLLECTED, AFEBRILE OVER 24 HR, WBC 8.3) Is the patient receiving the right drug, dose, and route?: Yes Could a more targeted ABx be ordered?: No How long ABx needed (days)?: 5 (PNEUMONIA)
[2025-06-12 08:00] VITALS: BP 148/60; PULSE 61; RESP 16; TEMP 36.5; O2SAT 94
[2025-06-12 08:15] VITALS: O2SAT 94
[2025-06-12] MEDS: APIXABAN 5MG TABLET 5 MG PO (08:30)
[2025-06-12] MEDS: METOPROLOL SUCCINATE XL 50MG TABLET 50 MG PO (08:30)
[2025-06-12] MEDS: POLYETHYLENE GLYCOL 3350 17 GM PACKET PO (08:31)
[2025-06-12] MEDS: HYDROCODONE/APAP 5/325 MG TABLET 1 TAB PO (08:31)
[2025-06-12] MEDS: SENNOSIDES 8.6MG/DOCUSATE 50MG TABLET 1 TAB PO (08:31)
[2025-06-12] MEDS: POTASSIUM CHLORIDE 20MEQ TAB 40 MEQ PO ×2 (11:13→14:16)
--- NOTE | 2025-06-12 12:30 | EXP.DC.SUM ---
General Admission date:: 06/09/25 HPI HPI HPI: Mrs. Sidhu is an 89-year-old female who was admitted from the ED with colonic distention/fecal impaction. The patient states that this started when she hurt her shoulder last and was given opiate pain medications. She does have chronic constipation for which she takes ClearLax routinely. However, after the pain medications, her constipation had worsened and she states that she had not had a bowel movement for about 9 days. She also developed abdominal distention and abdominal pain. She came to the ED to be evaluated. In the ED, her white blood cell count was 13,000 with a normal sed rate of 26. Her chemistries did show BUN 47 and creatinine 1.20 with escalation of her transaminases and alkaline phosphatase (AST 53, ALT 100, alkaline phosphatase 198 and total bilirubin 0.8). Imaging of the abdomen showed colonic distention without obstructing lesion with cecal diameter of 11 cm and rectal diameter of up to 8.5 cm. She also had biliary and pancreatic ductal dilation with no mass but some prominence at the level of the ampulla. Overnight, the patient did receive a fleets enema and suppositories and has had 2 small bowel movements. She does feel better and reports no rectal bleeding or fever. She does state that her last colonoscopy was about 10 years ago but she cannot remember. She reports no family history of colon cancer. Hospital Course Hospital Course Hospital Course: Fabby Sidhu 89-year-old female who presented with worsening low back pain, no bowel movement in 9 days, and shortness of breath. #Acute hypoxic respiratory failure #Community-acquired pneumonia - Chest x-ray on admission revealed left lower lobe consolidation. New oxygen requirement of 2 L. - Clinically improved with IV ceftriaxone, will transition to cefdinir 300 mg twice daily for 3 more days. Wean oxygen as tolerated. #Ileus #Constipation #Dilated CBD, pancreatic duct - Ileus secondary to severe fecal impaction, possibly from recent hydrocodone use for low back pain. - Initial CT abdomen revealed severe distention of colon with fecal impaction. Distention significantly improved, especially with large bowel movement during admission. Continues to have bowel movements with MiraLAX. ? GI consulted, MRCP shows biliary and pancreatic duct dilatation in the setting of cholecystectomy, opioid use. No plans for intervention per GI. LFTs improving. ? Continue MiraLAX 17 g daily. #LELA on CKD - Creatinine improved from 1.2-1.0 with fluid resuscitation. Creatinine 1.0, GFR 52. #A-fib #Thyroid, liver dysfunction ? Amiodarone likely causing multiorgan dysfunction. Free T4 elevated since last year, TSH normal. ? Discussed with cardiology, will discontinue amiodarone, continue Eliquis and metoprolol succinate 50 mg daily. #Chronic low back pain ? History of low back, pelvic trauma after horse injury. CT abdomen/pelvis showed age-indeterminate L3, L4 fractures. Has been using hydrocodone short-term, slightly improved with Toradol during admission. ? Will avoid further opioids due to recent ileus, constipation. Will trial meloxicam 7.5 mg daily as needed for a short course only in the setting of CKD. ? Patient interested in intrathecal pain pump with Dr. Hallman to which she was referred. Resume home medications for chronic conditions including A-fib and hypertension as follows: Eliquis 5 mg twice daily, Lipitor 40 mg daily, Plavix 75 mg daily, metoprolol succinate 50 mg daily, nifedipine 30 mg extended release daily Total time spent on discharge: 32 minutes on chart review, counseling, documentation, and direct care with patient. Exam Data for Last 24 hours Vital signs and Labs for Last 24 Hours: Temp Pulse Resp BP Pulse Ox O2 Del Method O2 Flow Rate 97.7 F 61 16 148/60 H 94 L Nasal Cannula 2 06/12/25 08:00 06/12/25 08:00 06/12/25 08:00 06/12/25 08:00 06/12/25 08:15 06/12/25 09:10 06/12/25 09:10 Laboratory Results - last 24 hr 06/12/25 05:27: WBC 8.3, RBC 4.06 L, Hgb 11.3 L, Hct 35.0 L, MCV 86.2, MCH 27.8, MCHC 32.3, RDW 18.8 H, Plt Count 297, MPV 11.0 H, Neut % (Auto) 73.9, Lymph % (Auto) 12.1, [place] % (Auto) 11.8 H, Eos % (Auto) 1.0, Baso % (Auto) 0.4, Neut # (Auto) 6.2, Lymph # (Auto) 1.0, [place] # (Auto) 1.0, Eos # (Auto) 0.1, Baso # (Auto) 0.0, Sodium 134 L, Potassium 3.2 L, Chloride 104, Carbon Dioxide 24, Anion Gap 9.2, BUN 31 H, Creatinine 1.00, Estimated Creat Clear 38, Estimated GFR 52 L, Est GFR ( Amer) 63, Glucose 85, Calcium 8.5, Magnesium 2.1, Total Bilirubin 0.5, AST 47 H D, ALT 52, Alkaline Phosphatase 196 H, NT-Pro-B Natriuret Pep 1380 H, Total Protein 6.6, Albumin 2.8 L, Globulin 3.8 H, Albumin/Globulin Ratio 0.7 L I & O for Last 24 hours: Intake & Output 06/09/25 06/10/25 06/11/25 06/12/25 23:59 23:59 23:59 23:59 Intake Total 1112.5 / 1232.5 1107.5 / 1347.5 290 / 290 360 / 360 Output Total 0 / 0 0 / 0 0 / 0 Balance 1112.5 / 1232.5 1107.5 / 1347.5 290 / 290 360 / 360 Weight 61.235 kg 62.051 kg 63.594 kg 62.278 kg Results Data Completed and Pending Labs on day of discharge: Labs from last 24 hours 06/12/25 05:27 WBC 8.3 RBC 4.06 L Hgb 11.3 L Hct 35.0 L MCV 86.2 MCH 27.8 MCHC 32.3 RDW 18.8 H Plt Count 297 MPV 11.0 H Neut % (Auto) 73.9 Lymph % (Auto) 12.1 [place] % (Auto) 11.8 H Eos % (Auto) 1.0 Baso % (Auto) 0.4 Neut # (Auto) 6.2 Lymph # (Auto) 1.0 [place] # (Auto) 1.0 Eos # (Auto) 0.1 Baso # (Auto) 0.0 Sodium 134 L Potassium 3.2 L Chloride 104 Carbon Dioxide 24 Anion Gap 9.2 BUN 31 H Creatinine 1.00 Estimated Creat Clear 38 Estimated GFR 52 L Est GFR ( Amer) 63 Glucose 85 Calcium 8.5 Magnesium 2.1 Total Bilirubin 0.5 AST 47 H D ALT 52 Alkaline Phosphatase 196 H NT-Pro-B Natriuret Pep 1380 H Total Protein 6.6 Albumin 2.8 L Globulin 3.8 H Albumin/Globulin Ratio 0.7 L DS: Diagnosis Discharge Diagnosis (1) Ileus: Status: Acute Code(s): K56.7 - Ileus, unspecified (2) LELA (acute kidney injury): Status: Acute Code(s): N17.9 - Acute kidney failure, unspecified (3) Constipation: Status: Acute Code(s): K59.00 - Constipation, unspecified (4) Essential hypertension: Status: Chronic Code(s): I10 - Essential (primary) hypertension (5) Atrial fibrillation: Status: Acute Code(s): I48.91 - Unspecified atrial fibrillation Qualifiers: Atrial fibrillation type: unspecified Qualified Code(s): I48.91 - Unspecified atrial fibrillation (6) Left lower lobe pneumonia: Status: Acute Code(s): J18.9 - Pneumonia, unspecified organism Meds Home Medications and Allergies Home Medications ?Medication ?Instructions ?Recorded ?Confirmed ?Type fexofenadine 180 mg tablet 180 mg PO DAILY allergies #90 tabs 04/15/21 06/09/25 Rx ([facility]) nifedipine 30 mg tablet,extended 30 mg PO DAILY #90 tabs 08/20/24 06/09/25 Rx release 24 hr vit C 250 mg-vit E 90 mg-zinc 40 1 tab PO BID 03/31/25 06/09/25 History mg-copper 1 [id number] capsule ([facility] AREDS-2) cyanocobalamin (vitamin B-12) 1,000 mcg IM WEEKLY #10 mL 05/29/25 06/09/25 Rx 1,000 mcg/mL injection solution apixaban 5 mg tablet (Eliquis) 5 mg PO BID 06/09/25 06/09/25 History atorvastatin 40 mg tablet 40 mg PO HS 06/09/25 06/10/25 History clopidogrel 75 mg tablet 75 mg PO DAILY 06/09/25 06/09/25 History fexofenadine 180 mg tablet 180 mg PO DAILY 06/10/25 06/10/25 History metoprolol succinate 50 mg 50 mg PO DAILY 06/10/25 06/10/25 History tablet,extended release 24 hr cefdinir 300 mg capsule 300 mg PO BID 3 days #6 caps 06/12/25 Rx meloxicam 7.5 mg tablet 7.5 mg PO DAILY PRN Low back pain 06/12/25 Rx #7 tabs polyethylene glycol 3350 17 gram 17 g PO DAILY 30 days #30 ea 06/12/25 Rx oral powder packet (HealthyLax) New Prescriptions to Start Prescriptions: cefdinir Daniel Salinas meloxicam Daniel Salinas polyethylene glycol 3350 [HealthyLax] Daniel Salinas Allergies Allergy/AdvReac Type Severity Reaction Status Date / Time Penicillins Allergy Severe Unknown Verified 06/02/25 14:19 allergy reaction Sulfa (Sulfonamide Allergy Severe Unknown Verified 06/02/25 14:19 Antibiotics) allergy reaction Discharge Plan Disposition Patient Disposition: er SNF Condition: Fair Discharge Order Discharge Orders: Discharge Order (Routine); Ordered 06/12/25 Ordered By: Daniel Salinas Follow up Plan Follow up with: Alli Negrete MD [Primary Care Provider, [facility]] - 06/19/25 1:00 pm Prescriptions/Medication Reconciliation: New polyethylene glycol 3350 [HealthyLax] 17 gram Powder In Packet 17 g PO DAILY 30 Days Qty: 30 0RF cefdinir 300 mg capsule 300 mg PO BID 3 Days Qty: 6 0RF meloxicam 7.5 mg tablet 7.5 mg PO DAILY PRN (Reason: Low back pain) Qty: 7 0RF Continued fexofenadine [Eri Allergy] 180 mg tablet 180 mg PO DAILY Qty: 90 3RF [facility] AREDS-2 250-90-40-1 mg capsule 1 tab PO BID cyanocobalamin (vitamin B-12) 1,000 mcg/mL solution 1,000 mcg IM WEEKLY Qty: 10 10RF Rx Instructions: please provide needles/syringes nifedipine 30 mg tablet extended release 24hr 30 mg PO DAILY Qty: 90 3RF clopidogrel 75 mg tablet 75 mg PO DAILY atorvastatin 40 mg tablet 40 mg PO HS Eliquis 5 mg tablet 5 mg PO BID metoprolol succinate 50 mg tablet extended release 24 hr 50 mg PO DAILY fexofenadine 180 mg Tablet 180 mg PO DAILY Discontinued amiodarone 200 mg tablet 200 mg PO DAILY Qty: 90 3RF Problem Reconciliation Problems Reviewed?: Yes Patient Discharge Instructions Patient Instructions: Constipation Print Language: [place] Citizen Providers Primary Care Provider: Alli Negrete Admit Provider: Sudhakar Ngo Attending Provider: Sudhakar Ngo
[2025-06-12] MEDS: KETOROLAC 15MG/ML VIAL 15 MG IV (14:16)
[2025-06-12 16:00] VITALS: BP 145/54; PULSE 60; RESP 16; TEMP 37.1; O2SAT 91
== END 2025-06-12 17:06 | DRG 388 ==
LOC: ER 16:05 → 2ND 16:26
PROVIDERS: Internal Medicine Gastroenterology; Nurse Practitioner; Student in an Organized Health Care Education/Training Program; Admitting Provider Internal Medicine Adolescent Medicine; Emergency Provider Student in an Organized Health Care Education/Training Program; PCP Family Medicine; Visit Provider Internal Medicine Adolescent Medicine
DX: K56.41 Fecal impaction (principal); J18.9 Pneumonia, unspecified organism; K56.7 Ileus, unspecified; S32.049A Unspecified fracture of fourth lumbar vertebra, initial encounter for closed fracture; S32.039A Unspecified fracture of third lumbar vertebra, initial encounter for closed fracture; N17.9 Acute kidney failure, unspecified; I48.91 Unspecified atrial fibrillation; I12.9 Hypertensive chronic kidney disease with stage 1 through stage 4 chronic kidney disease, or unspecified chronic kidney disease; K63.89 Other specified diseases of intestine; K83.8 Other specified diseases of biliary tract; K86.89 Other specified diseases of pancreas; K76.89 Other specified diseases of liver; E07.89 Other specified disorders of thyroid; G89.29 Other chronic pain; M54.50 Low back pain, unspecified; N18.9 Chronic kidney disease, unspecified; N28.1 Cyst of kidney, acquired; T40.2X5A Adverse effect of other opioids, initial encounter; T46.2X5A Adverse effect of other antidysrhythmic drugs, initial encounter; W55.19XA Other contact with horse, initial encounter; Z88.0 Allergy status to penicillin; Z88.2 Allergy status to sulfonamides; Z79.01 Long term (current) use of anticoagulants; Z79.02 Long term (current) use of antithrombotics/antiplatelets; Z79.899 Other long term (current) drug therapy
CPT/HCPCS: 36415; 71045; 73562; 74177; 74183; 76376; 80053; 81001; 82272; 82378; 82550; 83605; 83690; 83735; 83880; 84439; 84443; 85025; 85651; 86140; 86301; 87507; 93005; 97116; 97162; 97166; 97530; 99285; A9576; G0328; J0131; J0696; J1308; J1885; J2360; J2405; J7030; J7120; Q9967

== ENCOUNTER 2025-07-17 11:31 | Outpatient (CLI) | payer MEDICARE, SELFPAY ==
[2025-07-17 14:51] LABS: Hematocrit 35.9 % (37.0-47.0); Hemoglobin 11.4 g/dL (12.2-16.2); Immature Granulocytes % 0.6 %; Mean Corpuscular HGB Conc 31.8 g/dL (31.8-35.4); Mean Corpuscular Hemoglobin 28.8 pg (27.0-31.2); Mean Corpuscular Volume 90.7 fl (81-99); Nucleated Red Blood Cells % 0 %; Platelet Count 348 K/mm3 (142-424); Red Blood Count 3.96 M/mm3 (4.20-5.40); Red Cell Distribution Width-SD 67.7 fL; White Blood Count 10.1 K/mm3 (4.8-10.8)
[2025-07-17 15:22] LABS: Albumin Level 3.5 g/dl (3.5-5.0); Chloride 104 mmol/L (98-107); Sodium 142 mmol/L (136-145)
[2025-07-17 15:23] LABS: Potassium 3.9 mmoL/L (3.5-5.1)
[2025-07-17 15:25] LABS: Alanine Aminotransferase 20 U/L (12-78); Albumin/Globulin Ratio 0.9 (1.1-1.8); Alkaline Phosphatase 106 U/L (38-126); Anion Gap 16.9 mEq/L (5-15); Aspartate Amino Transferase 23 U/L (14-36); Bilirubin,Total 0.8 mg/dl (0.2-1.3); Blood Urea Nitrogen 17 mg/dl (7-17); Carbon Dioxide 25 mmol/L (22.0-30.0); Cholesterol 96 mg/dl (140-200); Creatinine,Serum 0.90 mg/dl (0.52-1.04); Estimated Glomerular Filt Rate 59 ml/min (>60); GFR (African American) 71 ML/MIN (>60); Globulin 3.7 g/dL (1.3-3.2); Total Protein,Serum 7.2 g/dl (6.3-8.2); Triglycerides 98 mg/dl (30-150)
[2025-07-17 15:26] LABS: Calcium 9.1 mg/dl (8.4-10.2); Glucose 102 mg/dl (74-100); HDL Cholesterol 44 mg/dl (40-60)
== END 2025-07-17 23:59 | disposition home or self-care (01) ==
LOC: LAB.DROPOF 07-18 14:11
PROVIDERS: PCP Family Medicine; Visit Provider Family Medicine
DX: S32.040A Wedge compression fracture of fourth lumbar vertebra, initial encounter for closed fracture (principal); S32.030A Wedge compression fracture of third lumbar vertebra, initial encounter for closed fracture; I10 Essential (primary) hypertension
CPT/HCPCS: 80053; 80061; 85025